=== PATIENT | female | born 1995 | race Caucasian/White ===

== ENCOUNTER 2016-08-07 14:36 | Emergency (ER) | payer OTHER ==
[~2016-08-07] VITALS: Ht 172.7 cm; Wt 112.6 kg
[~2016-08-07 14:36] MED LIST: CITA20TA9 PO; RANI300T2 PO
[2016-08-07 14:41] VITALS: TEMP 36.8; Ht 172.7 cm; Wt 112.6 kg
[2016-08-07] MEDS ORDERED: ONDANSETRON INJ 2 MG/ML 2 ML VIAL IV STA (16:37)
[2016-08-07] MEDS ORDERED: SODIUM CHLORIDE 0.9% 1000ML 1,000 ML IV STA (16:37)
[2016-08-07 16:59] LABS: BASO % 0.2 %; BASO ABS # 0.03 K/uL (0-0.2); COMPLETE YES; EOS % 0.6 %; HEMATOCRIT 36.5 % (37-47); IG% 0.4 %; LYMPH % 21.6 %; LYMPH ABS # 3.05 K/uL (1.2-3.4); MEAN CELL VOLUME 83.1 fL (80-100); MEAN CORPUSCULAR HEMOGLOBIN 27.3 pg (25-34); MEAN CORPUSCULAR HGB CONC 32.9 g/dl (32-36); MEAN PLATELET VOLUME 10.1 fL (7.4-10.4); MONO % 4.2 %; PLATELET COUNT 449 K/uL (130-400); RED BLOOD COUNT 4.39 M/uL (4.2-5.4); WHITE BLOOD COUNT 14.13 K/uL (4.8-10.8)
[2016-08-07 17:19] LABS: BUN/CREATININE RATIO 13.2 (10-20); CALCIUM 9.2 mg/dl (8.5-10.1); CREATININE 0.63 mg/dl (0.60-1.20); POTASSIUM 3.5 mmol/L (3.5-5.1)
[2016-08-07 17:56] LABS: MANUAL MICROSCOPIC REQUIRED? NO; REVIEW REQ? NO; URINE APPEARANCE CLEAR (CLEAR); URINE BILIRUBIN NEG (NEG); URINE COLOR YELLOW; URINE EPITHELIAL CELL AUTO >30 /lpf (0-5); URINE NITRITE NEG (NEG); URINE PH 6.5 (4.5-7.5); URINE SPECIFIC GRAVITY 1.001 (1.000-1.030); UROBILINOGEN NEG (NEG); ZZUR CULT IF INDIC CLEAN CATCH YES
[2016-08-07] MEDS ORDERED: ONDA4TAB46 PO (18:03)
[2016-08-07 18:25] VITALS: BP 135/83; PULSE 90; O2SAT 100
--- NOTE | 2016-08-07 18:27 | EMERGENCY ROOM VISIT NOTE ---
History Report prepared by Davidibe: Charlee Ang Under the Supervision of: Dr. Toro Emerson D.O. First contact with patient: 16:15 Chief Complaint: VOMITING Stated Complaint: ABD PAIN,VOMITING,DIARRHEA Nursing Triage Summary: pt believes she has food poisoning. yesterday started vomiting and diarrhea. denies any fever History of Present Illness The patient is a 21 year old female who presents to the Emergency Room with complaints of persistent vomiting and diarrhea that started yesterday morning. She thinks she may have food poisoning and also complains of some abdominal pain. She denies any fevers. She denies any recent sick contacts but reports her younger brother is in first grade and "is always bringing home bugs". She notes the vomiting started first, then she started experiencing diarrhea. She has not vomited since this morning. She has been trying stay hydrated by drinking water and has not eaten since trying some rice last night. Her last menstrual period was about 1 week ago and normal. She denies any abnormal vaginal bleeding or discharge. She still has both her gallbladder and appendix and denies any previous abdominal surgeries. The patient denies any headache, change in vision, fevers, chest pain, shortness of breath, back pain, pain with urination, and melena. Source of History: patient Onset: yesterday morning Position: abdomen Timing: other (persistent) Associated Symptoms: + abdominal pain, No SOB, No back pain, No chest pain, No fevers, No headache, No melena, No urinary symptoms Review of Systems See HPI for pertinent positives & negatives. A total of 10 systems reviewed and were otherwise negative. Past Medical & Surgical Medical Problems: (1) No significant past medical history Surgical Problems: (1) No history of previous surgery Social History Smoking Status: Never Smoker Alcohol Use: occasionally Marital Status: single Housing Status: lives with family Occupation Status: employed Current/Historical Medications Scheduled Ranitidine Hcl (Zantac), 300 MG PO HS Scheduled PRN Ondansetron Hcl (Zofran), 4 MG PO TID PRN for Nausea Allergies Coded Allergies: Penicillins (Unverified Allergy, Unknown, FAMILY ALLERGY, 08/07/16) Physical Exam Vital Signs Date Time Temp Pulse Resp B/P Pulse Ox O2 Delivery O2 Flow Rate FiO2 08/07/16 16:54 80 16 135/88 100 Room Air 08/07/16 14:41 36.8 82 18 110/66 100 Room Air Physical Exam GENERAL: Patient is alert, sitting up in bed, well appearing, well nourished, no distress, non-toxic EYE EXAM: normal conjunctiva OROPHARYNX: no exudate, no erythema, lips, buccal mucosa, and tongue normal and mucous membranes are moist NECK: supple, no nuchal rigidity, no adenopathy, non-tender LUNGS: Clear to auscultation. Normal chest wall mechanics HEART: no murmurs, S1 normal and S2 normal ABDOMEN: abdomen soft, non-tender, normo-active bowel sounds, no masses, no rebound or guarding. BACK: Back is symmetrical on inspection and there is no deformity, no midline tenderness, no CVA tenderness. SKIN: no rashes and no bruising UPPER EXTREMITIES: upper extremities are grossly normal. LOWER EXTREMITIES: No pitting edema. NEURO EXAM: Normal sensorium, cranial nerves II-XII grossly intact, normal speech, no gross weakness of arms, no gross weakness of legs. Gross sensation intact. Medical Decision & Procedures Laboratory Results 08/07/16 16:40 Red Blood Count 4.39, Mean Corpuscular Volume 83.1, Mean Corpuscular Hemoglobin 27.3, Mean Corpuscular Hemoglobin Concent 32.9, Mean Platelet Volume 10.1, Neutrophils (%) (Auto) 73.0, Lymphocytes (%) (Auto) 21.6, Monocytes (%) (Auto) 4.2, Eosinophils (%) (Auto) 0.6, Basophils (%) (Auto) 0.2, Neutrophils # (Auto) 10.31, Lymphocytes # (Auto) 3.05, Monocytes # (Auto) 0.60, Eosinophils # (Auto) 0.08, Basophils # (Auto) 0.03 08/07/16 16:40 Test 08/07/16 16:40 08/07/16 17:15 White Blood Count 14.13 K/uL (4.8-10.8) Red Blood Count 4.39 M/uL (4.2-5.4) Hemoglobin 12.0 g/dL (12.0-16.0) Hematocrit 36.5 % (37-47) Mean Corpuscular Volume 83.1 fL (80-100) Mean Corpuscular Hemoglobin 27.3 pg (25-34) Mean Corpuscular Hemoglobin Concent 32.9 g/dl (32-36) Platelet Count 449 K/uL (130-400) Mean Platelet Volume 10.1 fL (7.4-10.4) Neutrophils (%) (Auto) 73.0 % Lymphocytes (%) (Auto) 21.6 % Monocytes (%) (Auto) 4.2 % Eosinophils (%) (Auto) 0.6 % Basophils (%) (Auto) 0.2 % Neutrophils # (Auto) 10.31 K/uL (1.4-6.5) Lymphocytes # (Auto) 3.05 K/uL (1.2-3.4) Monocytes # (Auto) 0.60 K/uL (0.11-0.59) Eosinophils # (Auto) 0.08 K/uL (0-0.5) Basophils # (Auto) 0.03 K/uL (0-0.2) RDW Standard Deviation 42.2 fL (36.4-46.3) RDW Coefficient of Variation 13.9 % (11.5-14.5) Immature Granulocyte % (Auto) 0.4 % Immature Granulocyte # (Auto) 0.06 K/uL (0.00-0.02) Anion Gap 12.0 mmol/L (3-11) Est Creatinine Clear Calc Drug Dose 185.9 ml/min Estimated GFR () 148.6 Estimated GFR (Non- 128.2 BUN/Creatinine Ratio 13.2 (10-20) Calcium Level 9.2 mg/dl (8.5-10.1) Total Bilirubin 0.6 mg/dl (0.2-1) Direct Bilirubin 0.1 mg/dl (0-0.2) Aspartate Amino Transf (AST/SGOT) 8 U/L (15-37) Alanine Aminotransferase (ALT/SGPT) 16 U/L (12-78) Alkaline Phosphatase 83 U/L (45-117) Total Protein 7.5 gm/dl (6.4-8.2) Albumin 3.4 gm/dl (3.4-5.0) Lipase 84 U/L (73-393) Urine Color YELLOW Urine Appearance CLEAR (CLEAR) Urine pH 6.5 (4.5-7.5) Urine Specific [place] 1.001 (1.000-1.030) Urine Protein NEG (NEG) Urine Glucose (UA) NEG (NEG) Urine Ketones TRACE (NEG) Urine Occult Blood NEG (NEG) Urine Nitrite NEG (NEG) Urine Bilirubin NEG (NEG) Urine Urobilinogen NEG (NEG) Urine Leukocyte Esterase TRACE (NEG) Urine WBC (Auto) 1-5 /hpf (0-5) Urine RBC (Auto) 0-4 /hpf (0-4) Urine Hyaline Casts (Auto) 1-5 /lpf (0-5) Urine Epithelial Cells (Auto) >30 /lpf (0-5) Urine Bacteria (Auto) 1+ (NEG) Urine Test NEG (NEG) Laboratory results per my review. Medications Administered Medications (Trade) Dose Ordered Sig/Gina Route Start Time Stop Time Status Last Admin Dose Admin Sodium Chloride (Nss 1000ml) 1,000 ml @ 999 mls/hr Q1H1M STAT IV 08/07/16 16:37 08/07/16 17:37 DC 08/07/16 16:49 999 MLS/HR Ondansetron HCl (Zofran Inj) 4 mg NOW STAT IV 08/07/16 16:37 08/07/16 16:38 DC 08/07/16 16:50 4 MG ED Course ED COURSE: Vital signs were reviewed and showed normal vital signs. The patients medical record was reviewed The above diagnostic studies were performed and reviewed. ED treatments and interventions as stated above. 1622: The patient was evaluated in room B6. A complete history and physical examination was performed. 1637: Zofran 4 mg IV, NSS 1000 ml @ 999 mls/hr IV. 1720: I reevaluated the patient. She is resting comfortably and was just able to provide a urine sample. 1755: Upon reevaluation, the patient is feeling much better. I discussed my findings with the patient and she understands and agrees with the treatment plan. Based on the patients age, coexisting illnesses, exam and lab findings the decision to treat as an outpatient was made. The patient remained stable while under my care. The patient appeared well at the time of discharge. Medical Decision Differential diagnoses includes but is not limited to gastritis, peptic ulcer disease, GERD, gallbladder disease, pancreatitis, small bowel obstruction, acute coronary syndrome, pericarditis, ischemic bowel, irritable bowel disease, irritable bowel syndrome, appendicitis, diverticulitis, malignancy, hernia, urinary tract infection, torsion, /ectopic , perforation, trauma, infectious. Patient is a 21-year-old female who present see ER for abdominal cramping associated with nausea, vomiting and diarrhea. This started yesterday and has been improving. Today diarrhea has stopped and she's been able to tolerate liquids. She is no abdominal pain. She does have some nausea. Labs show a mild leukocytosis but BMP along with LFTs, lipase and bilirubin are unremarkable. UA was contaminated. was negative. Her abdominal exam was completely benign without signs of peritonitis. She was discharged follow-up with her PCP following receiving a liter of normal saline along with Zofran. Discussed with Pt concerning signs and symptoms to watch out for. Pt was instructed to follow up with their PCP and discussed with the patient their option to return to the ED at anytime for persistent or worsening symptoms. The appropriate anticipatory guidance and out-patient management, including indications for return to the emergency department, were explained at length to the patient and understood. Impression Primary Impression: Nausea, vomiting, and diarrhea Additional Impression: Leukocytosis Scribe Attestation The scribe's documentation has been prepared under my direction and personally reviewed by me in its entirety. I confirm that the note above accurately reflects all work, treatment, procedures, and medical decision making performed by me. Departure Information Dispostion Home / Self-Care Prescriptions Ondansetron Hcl (ZOFRAN) 4 Mg Tab 4 MG PO TID Y for Nausea, #30 TAB Prov: Toro Emerson, DO 08/07/16 Referrals No Doctor, Assigned (PCP) Patient Instructions A Signature Page, ED Diet Vomiting Diarrhea, ED Vomiting Diarrhea Nonspecific Ad , My [facility] Additional Instructions Please follow up with your primary care doctor with in the next 24 hours. Any worsening of your symptoms, please return to the ED immediately. This includes persistent nausea vomiting, fevers rhythm 100.4, unable to eat or drink, passing out, blood in her stool, or any other concerning signs or symptoms from your standpoint. Please take Zofran as needed for nausea.
== END 2016-08-07 18:25 | disposition home or self-care (01) ==
LOC: C.EDB 14:37
DX: R11.2 Nausea with vomiting, unspecified (principal); R19.7 Diarrhea, unspecified; D72.829 Elevated white blood cell count, unspecified; R10.9 Unspecified abdominal pain; Z79.899 Other long term (current) drug therapy; Z88.0 Allergy status to penicillin

== ENCOUNTER 2017-01-19 21:39 | Emergency (ER) | payer OTHER ==
[~2017-01-19] VITALS: Ht 175.3 cm; Wt 118.7 kg
[~2017-01-19 21:39] MED LIST changes: -CITA20TA9 PO; +ONDA4TAB46 PO
[2017-01-19 21:42] VITALS: TEMP 37.4; Ht 175.3 cm; Wt 118.7 kg
--- NOTE | 2017-01-19 22:05 | EMERGENCY ROOM VISIT NOTE ---
ED Visit Note First contact with patient: 21:46 CHIEF COMPLAINT: Sore throat / HISTORY OF PRESENT ILLNESS: This 21-year-old female patient presents the ER with chief complaint of increasing pain in the throat over the past day, gradual in onset, worse with swallowing. The patient states that she sees white spots on her tonsils. No fever or chills. The patient denies any upper respiratory symptoms of runny nose, cough, ear pain. No rash. Denies any posterior neck pain or stiffness. No difficulty breathing. Symptoms came on gradually. There has been no chest pain, no abdominal pain, no nausea or vomiting. 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 REVIEW OF SYSTEMS: 6 system review was performed and was negative unless stated otherwise in history of present illness. PMH: The patient is healthy; there is no significant medical or surgical history. SOCIAL HISTORY: Patient lives at home. PHYSICAL EXAM: Vital Signs were reviewed: Reviewed Nurse's notes and agree.. GENERAL: 21-year-old female appears in no acute distress. MENTAL STATUS: Alert, oriented, coherent. EARS: Canals clear. TMs good light reflex, no erythema or fluid level noted. NOSE: Nasal mucosa without erythema or engorgement. PHARYNX: Moderate erythema, no edema noted. A few white spots noted on the tonsils which may be exudate or possibly food products in her tonsils. Airway is adequate. NECK: Supple, non-tender. No lymphadenopathy noted. LUNGS: Clear to auscultation without wheezes rales or rhonchi. CARDIAC: Regular rate and rhythm without murmur. SKIN: No rashes noted. EMERGENCY COURSE: The patient was evaluated. Rapid strep was negative. Culture is pending. The patient was informed of findings and discharged home in stable condition. DIAGNOSIS: Acute pharyngitis, probably viral DISCHARGE INSTRUCTIONS & TREATMENT: Read the pharyngitis (sore throat) instruction sheet. Call for throat test result tomorrow. Ibuprofen for pain and fever every 6 hours. Current/Historical Medications Scheduled Ranitidine Hcl (Zantac), 300 MG PO HS Scheduled PRN Ondansetron Hcl (Zofran), 4 MG PO TID PRN for Nausea Allergies Coded Allergies: Penicillins (Unverified Allergy, Unknown, FAMILY ALLERGY, 08/07/16) Vital Signs Date Time Temp Pulse Resp B/P (MAP) Pulse Ox O2 Delivery O2 Flow Rate FiO2 6/16/17 21:46 Room Air 01/19/17 21:42 37.4 93 18 144/90 98 Room Air Departure Information Referrals No Doctor, Assigned (PCP) Patient Instructions [facility]
[2017-01-19] MEDS ORDERED: PRLSR20 PO (22:16)
[2017-01-19 22:27] VITALS: BP 137/84; PULSE 81; O2SAT 99
== END 2017-01-19 22:28 | disposition home or self-care (01) ==
LOC: C.EDB 21:40 → C.EDD 22:28
DX: J02.9 Acute pharyngitis, unspecified (principal)

== ENCOUNTER 2017-08-04 04:40 | Emergency (ER) | payer OTHER ==
[~2017-08-04 04:40] MED LIST changes: -ONDA4TAB46 PO; +PRLSR20 PO; -RANI300T2 PO
[2017-08-04 04:46] VITALS: TEMP 36.8; Ht 172.7 cm
[2017-08-04] MEDS ORDERED: IBUPROFEN 600 MG TAB PO STA (04:55)
--- NOTE | 2017-08-04 05:18 | EMERGENCY ROOM VISIT NOTE ---
ED Visit Note First contact with patient: 04:52 CHIEF COMPLAINT: Ankle pain HISTORY OF PRESENT ILLNESS: This 22-year-old patient presents to the emergency department with fianc after sustaining an injury to the right ankle and foot with a twisting, inversion motion when she slipped on the snow tonight. The patient complains of pain along the outside of the ankle. The patient complains of pain of the foot. The patient rates the pain as throbbing and 6/ 10. The patient is barely able to bear weight on the foot. Constant pain, worse with movement, weight bearing, and the dependent position. No knee pain, the patient is able to move their toes. No numbness or weakness of the foot, no laceration. The patient has not had a previous fracture to this ankle. The patient has taken nothing for the pain. The patient denies any other injury. REVIEW OF SYSTEMS: A 6 system review of systems was completed with positives and pertinent negatives listed in the HPI. ALLERGIES: Penicillin MEDICATIONS: Reviewed PMH: GERD SOCIAL HISTORY: No drug use PHYSICAL EXAM: Vital Signs: Reviewed Nurse's notes, vital signs stable. GENERAL : Pleasant female, no acute distress, but appears in pain, well-developed, well- nourished. MENTAL STATUS: Alert, oriented to person place and time, and cooperative. MUSCULOSKELETAL: The right ankle is swollen and tender over the lateral malleolus, but the skin is intact and there is no ligamentous instability. There is fifth metatarsal tenderness. There is tenderness over the rest of the foot. There is no calf or tibia/fibular tenderness. There is no visual deformity. The foot and toes are warm and well-perfused. Dorsalis pedis pulse 2+. Sensation to pain and light touch is intact. Capillary refill less than 2 seconds. EMERGENCY DEPARTMENT COURSE: I examined the patient. Patient is given Motrin. X-rays of the right foot and ankle were reviewed by myself and my Attending and reveal no fracture with moderate lateral soft tissue swelling per my interpretation. AirGel splint was applied to the ankle under my direction and the position was satisfactory. Neurovascular status was rechecked and intact. Patient was advised to follow-up with orthopedics in a few days if symptoms persist or here in the ER sooner for severe pain, numbness, tingling, worsening signs or symptoms or as needed. The patient was instructed on the use of crutches. The patient was discharged home in good condition. Differential diagnoses include sprain, strain, fracture, dislocation and other etiologies were considered. DIAGNOSIS: Right ankle sprain DISCHARGE INSTRUCTIONS: DO NOT drive, drink alcohol, operate machinery, or perform dangerous activities today. You were given medications in the ER that can affect your ability to safely function or operate a vehicle. Ibuprofen(Motrin, Advil) may be used for fever or pain. Use 600mg every six hours as needed. Take with food. Avoid using more than 2400mg in a 24 hour period. Do not use 2400mg per day for more than three consecutive days without physician direction. Prolonged inappropriate use can lead to stomach upset or ulcers. This medication can be taken if you need to drive, work, or perform activities which may be dangerous when taking narcotic pain medication. (AND/OR) Acetaminophen(Tylenol) may be used for fever or pain. Use 1000mg every six hours as needed. Avoid using more than 3000mg in a 24 hour period. This medication can be taken if you need to drive, work, or perform activities which may be dangerous when taking narcotic pain medication. Ice compresses for 20 minutes at a time four times daily for 2-3 days. Use the crutches as instructed. Rest and elevate your injury. Wear ankle gel splint until pain subsides. Do not have it so tight that you cannot feel your foot. Continue current medications. Return to the ER immediately for any numbness, tingling, severe pain, extreme swelling in the extremity or as needed. Call Orthopedics in 3-5 days symptoms persist to arrange follow up for your injury. Current/Historical Medications Scheduled Omeprazole (Prilosec), 20 MG PO DAILY Allergies Coded Allergies: Penicillins (Unverified Allergy, Unknown, FAMILY ALLERGY, 01/19/17) Vital Signs Date Time Temp Pulse Resp B/P (MAP) Pulse Ox O2 Delivery O2 Flow Rate FiO2 08/04/17 04:46 36.8 107 18 133/58 98 Room Air Medications Administered Medications (Trade) Dose Ordered Sig/Gina Route Start Time Stop Time Status Last Admin Dose Admin Ibuprofen (Motrin Tab) 600 mg NOW STAT PO 08/04/17 04:55 08/04/17 04:56 DC 08/04/17 05:02 600 MG Departure Information Referrals Mae Zepeda D.O. (PCP) Patient Instructions [facility]
[2017-08-04 05:30] VITALS: BP 136/81; PULSE 100; O2SAT 99
--- NOTE | 2017-08-04 06:54 | DIAGNOSTIC IMAGING REPORT ---
R FOOT MIN 3 VIEWS ROUTINE, R ANKLE MIN 3 VIEWS ROUTINE CLINICAL HISTORY: 22 years-old Female presenting with fall, pain. TECHNIQUE: Frontal, mortise, and lateral views of the right ankle and frontal, oblique, and lateral views of the right foot were obtained. COMPARISON: None. FINDINGS: Right ankle: Ankle mortise intact. Tibiofibular articulation intact. No acute fracture or malalignment. No degenerative change. Soft tissue swelling noted diffusely along the ankle. Right foot: No acute fracture or malalignment. Soft tissue swelling noted anteriorly at the level of the ankle mortise and most prominently along the lateral malleolus. IMPRESSION: 1. No acute osseous injury of the right ankle. Significant soft tissue swelling. 2. No acute osseous injury of the right foot. Electronically signed by: Irvin Jiménez M.D. 08/04/2017 6:53 AM Dictated Date/Time: 08/04/2017 6:51 AM
== END 2017-08-04 05:30 | disposition home or self-care (01) ==
LOC: C.EDB 04:41 → C.EDA 05:30
DX: S93.401A Sprain of unspecified ligament of right ankle, initial encounter (principal); W00.0XXA Fall on same level due to ice and snow, initial encounter

== ENCOUNTER 2018-03-24 02:58 | Inpatient (IN) | payer OTHER ==
[~2018-03-24] VITALS: Ht 172.7 cm; Wt 121.0 kg
[2018-03-24] VITALS (23 sets, daily range): BP systolic 100–133; BP diastolic 46–84; PULSE 78–114; TEMP 35.5–37; O2SAT 96–100; Ht 172.7 cm; Wt 121.0 kg
[2018-03-24] MEDS ORDERED: SODIUM CHLORIDE 0.9% 1000ML 1,000 ML IV STA ×3 (03:06→04:07)
--- NOTE | 2018-03-24 03:18 | EMERGENCY ROOM VISIT NOTE ---
History Report prepared by Tony: Sean Ramos Under the Supervision of: Dr. Joselyn Paul D.O. First contact with patient: 03:01 Stated Complaint: OVERDOSE History of Present Illness HPI is limited due to an altered mental state secondary to a poly-substance overdose. The patient is a 22 year old female who presents to the Emergency Room via EMS due to a recent intentional poly-substance overdose. Patient is present with her . states that him and the patient were drinking at a friend's house tonight. He states when they got home he saw the patient looking up "the easiest drugs to overdose on". He states he was then lying in bed when he received a text message from the patient saying "I love you, you are the best I could ask for". He states he then found the patient lying in the bathtub with her Clonazepam medication on the floor. He adds he was able to get the patient out of the bath tub where she then ambulated by herself to the bed room. He states the patient was having trouble standing and walking so he called EMS. states the patient took Clonazepam with intentions of trying to "kill herself". He states he would be willing to sign a 302. He adds the patient also has [place] and Seroquel but does not know for sure if she took these as well. adds the patient stopped taking all her medications a month ago. Past medical history includes Bipolar 2 Disorder and depression which she sees a psychiatrist for. denies the patient always feeling depressed when she drinks. He states she has felt lonely lately which has been worsened with her friends being "flaky". states they do not have children. He states the patient has never been committed to the hospital against her will. states the patient smokes weed occasionally but denies any other drug abuse. He states the patient's last menstrual period was a week ago. He states the patient drank "6 shots of vodka" tonight. Source of History: spouse/significant other History Limited By: AMS (Poly-substance overdose) Onset: Recent Review of Systems ROS is limited due to an altered mental state secondary to a poly-substance overdose. Past Medical & Surgical Medical Problems: (1) Bipolar 2 disorder (2) Respiratory failure, acute Surgical Problems: (1) No history of previous surgery Family History Family history is limited due to an altered mental state secondary to a poly- substance overdose. Social History Smoking Status: Current Some Day Smoker Alcohol Use: occasionally Marital Status: single Housing Status: lives with family Occupation Status: employed Current/Historical Medications Scheduled Clonazepam (Klonopin), 1.5 MG PO AMPM Dexamethasone Sod Phos (Dexamethasone Sodium Phos), 4 MG TOP UD Ergocalciferol (Vitamin D 77206 Unit), 50,000 UNIT PO WK Kistler Carbonate ([place] Carbonate), 300 MG PO QAM [place] Carbonate ([place] Carbonate), 600 MG PO HS Omeprazole (Prilosec), 20 MG PO DAILY Quetiapine Fumarate (Seroquel), 50 MG PO HS Sertraline (Zoloft), 150 MG PO QAM Allergies Coded Allergies: Penicillins (Unverified Allergy, Unknown, FAMILY ALLERGY, 08/04/17) Physical Exam Vital Signs Date Time Temp Pulse Resp B/P (MAP) Pulse Ox O2 Delivery O2 Flow Rate FiO2 03/24/18 05:21 93 16 118/56 100 Mechanical Ventilator 50 03/24/18 05:16 93 13 121/66 100 Mechanical Ventilator 03/24/18 05:11 92 12 106/51 100 Mechanical Ventilator 03/24/18 05:06 93 12 129/47 100 Mechanical Ventilator 03/24/18 05:05 136/61 03/24/18 05:01 113 17 147/67 99 Mechanical Ventilator 03/24/18 04:56 114 25 165/83 100 Mechanical Ventilator 03/24/18 04:55 100 03/24/18 04:52 124 21 171/101 100 Mechanical Ventilator 03/24/18 04:47 100 03/24/18 04:46 111 16 115/62 99 Nasal Cannula 3.0 03/24/18 04:41 103 16 109/54 99 Nasal Cannula 3.0 03/24/18 04:36 101 17 104/55 98 Nasal Cannula 3.0 03/24/18 04:31 98 17 111/55 98 Nasal Cannula 3.0 03/24/18 04:21 99 16 94/59 97 Nasal Cannula 3.0 03/24/18 04:11 98 16 80/57 96 Nasal Cannula 3.0 03/24/18 04:01 98 24 94/50 97 Nasal Cannula 3.0 03/24/18 03:56 Nasal Cannula 3.0 03/24/18 03:51 102 17 87/45 96 Nasal Cannula 3.0 03/24/18 03:41 90/43 03/24/18 03:40 105 23 91/48 93 Nasal Cannula 3.0 03/24/18 03:31 97 21 76/45 97 Nasal Cannula 3.0 03/24/18 03:21 108 23 88/49 94 Room Air 03/24/18 03:21 89 22 82/48 99 03/24/18 03:15 96 03/24/18 03:11 83/35 90 Nasal Cannula 3.0 03/24/18 03:10 69/40 88 Room Air Physical Exam General: Patient is unresponsive to verbal and painful stimuli. HEENT: Head - normocephalic and atraumatic Pupils are 4 mm and equal, round, and reactive to light. Extraocular eye muscles are intact, and sclera are anicteric. Nose - moist nasal mucosa without discharge. Mouth - moist buccal mucosa. Oropharynx is nonerythematous and there is no tonsillar exudate or edema noted. Neck: Supple; no JVD, nuchal rigidity, cervical lymphadenopathy. Heart: Regular rate and rhythm. There is a normal S1 and S2 with no murmurs, clicks, or gallops appreciated. Lungs: Clear to auscultation bilaterally with no wheezes, rales, or rhonchi. Abdomen: Soft, completely nontender, nondistended, with good bowel sounds. There are no palpable pulsatile masses or hepatosplenomegaly. There is no guarding, rigidity, or rebound noted. Extremities: No evidence of cyanosis, clubbing, or edema. There are easily palpable peripheral pulses. Skin: Open skin lesions on the anterior tib fibs otherwise warm and dry with good turgor and no rashes. Medical Decision & Procedures ER Provider Diagnostic Interpretation: Radiology results as stated below per my review and the interpretation: CHEST X-RAY: X-ray shows endotracheal tube was 2cm above the gayla and no other pulmonary findings. Laboratory Results 03/24/18 02:38 Red Blood Count 4.62, Mean Corpuscular Volume 83.1, Mean Corpuscular Hemoglobin 26.2, Mean Corpuscular Hemoglobin Concent 31.5, Mean Platelet Volume 10.4, Neutrophils (%) (Auto) 72.2, Lymphocytes (%) (Auto) 23.0, Monocytes (%) (Auto) 3.3, Eosinophils (%) (Auto) 0.6, Basophils (%) (Auto) 0.3, Neutrophils # (Auto) 9.92, Lymphocytes # (Auto) 3.15, Monocytes # (Auto) 0.45, Eosinophils # (Auto) 0.08, Basophils # (Auto) 0.04 03/24/18 02:38 Test 03/24/18 02:38 03/24/18 03:15 03/24/18 03:17 White Blood Count 13.72 K/uL (4.8-10.8) Red Blood Count 4.62 M/uL (4.2-5.4) Hemoglobin 12.1 g/dL (12.0-16.0) Hematocrit 38.4 % (37-47) Mean Corpuscular Volume 83.1 fL (80-100) Mean Corpuscular Hemoglobin 26.2 pg (25-34) Mean Corpuscular Hemoglobin Concent 31.5 g/dl (32-36) Platelet Count 487 K/uL (130-400) Mean Platelet Volume 10.4 fL (7.4-10.4) Neutrophils (%) (Auto) 72.2 % Lymphocytes (%) (Auto) 23.0 % Monocytes (%) (Auto) 3.3 % Eosinophils (%) (Auto) 0.6 % Basophils (%) (Auto) 0.3 % Neutrophils # (Auto) 9.92 K/uL (1.4-6.5) Lymphocytes # (Auto) 3.15 K/uL (1.2-3.4) Monocytes # (Auto) 0.45 K/uL (0.11-0.59) Eosinophils # (Auto) 0.08 K/uL (0-0.5) Basophils # (Auto) 0.04 K/uL (0-0.2) RDW Standard Deviation 42.8 fL (36.4-46.3) RDW Coefficient of Variation 14.3 % (11.5-14.5) Immature Granulocyte % (Auto) 0.6 % Immature Granulocyte # (Auto) 0.08 K/uL (0.00-0.02) Activated Partial Thromboplast Time 28.0 SECONDS (21.0-31.0) Partial Thromboplastin Ratio 1.1 Anion Gap 10.0 mmol/L (3-11) Est Creatinine Clear Calc Drug Dose 174.1 ml/min Estimated GFR () 143.2 Estimated GFR (Non- 123.6 BUN/Creatinine Ratio 10.9 (10-20) Osmolality 341 mOsm/kg (280-300) Calcium Level 9.0 mg/dl (8.5-10.1) Magnesium Level 2.1 mg/dl (1.8-2.4) Total Bilirubin 0.2 mg/dl (0.2-1) Direct Bilirubin < 0.1 mg/dl (0-0.2) Aspartate Amino Transf (AST/SGOT) 8 U/L (15-37) Alanine Aminotransferase (ALT/SGPT) 19 U/L (12-78) Alkaline Phosphatase 82 U/L (45-117) Troponin I < 0.015 ng/ml (0-0.045) Pro-B-Type Natriuretic Peptide 49 pg/ml (0-450) Total Protein 7.7 gm/dl (6.4-8.2) Albumin 3.7 gm/dl (3.4-5.0) Procalcitonin < 0.05 ng/ml (0-0.5) Thyroid Stimulating Hormone (TSH) 1.840 uIu/ml (0.300-4.500) Human Chorionic Gonadotropin, Qual NEG (NEG) Salicylates Level < 1.7 mg/dl (2.8-20) Acetaminophen Level < 2 ug/ml (10-30) [place] Level 0.6 mMOL/L (0.6-1.2) Urine Color YELLOW Urine Appearance CLEAR (CLEAR) Urine pH 6.0 (4.5-7.5) Urine Specific Rainbow 1.005 (1.000-1.030) Urine Protein NEG (NEG) Urine Glucose (UA) NEG (NEG) Urine Ketones NEG (NEG) Urine Occult Blood NEG (NEG) Urine Nitrite NEG (NEG) Urine Bilirubin NEG (NEG) Urine Urobilinogen NEG (NEG) Urine Leukocyte Esterase NEG (NEG) Urine Opiates Screen NEG (NEG) Urine Methadone, Qualitative NEG (NEG) Urine Barbiturates NEG (NEG) Urine Phencyclidine (PCP) Level NEG (NEG) Ur Amphetamine/Methamphetamine NEG (NEG) MDMA (Ecstasy) Screen NEG (NEG) Urine Benzodiazepines Screen NEG (NEG) Urine Cocaine Metabolite NEG (NEG) Urine Marijuana (THC) NEG (NEG) Ethyl Alcohol mg/dL 166.0 mg/dl (0-3) Medications Administered Medications (Trade) Dose Ordered Sig/Gina Route Start Time Stop Time Status Last Admin Dose Admin Sodium Chloride 1,000 ml @ 999 mls/hr Q1H1M STAT IV 03/24/18 03:06 03/24/18 04:06 DC 03/24/18 03:10 999 MLS/HR Sodium Chloride 1,000 ml @ 999 mls/hr Q1H1M STAT IV 03/24/18 04:07 03/24/18 05:07 DC 03/24/18 03:10 999 MLS/HR Sodium Chloride 1,000 ml @ 250 mls/hr Q4H STAT IV 03/24/18 04:07 03/24/18 06:02 DC 03/24/18 04:10 250 MLS/HR Norepinephrine Bitartrate 8 mg/ Dextrose 508 ml @ 0 mls/hr Q0M STAT IV 03/24/18 04:13 03/24/18 04:14 DC 03/24/18 04:29 44.9 MLS/HR Procedure Sodium Chloride 1000 ml @ 999 mls/hr IV, Sodium Chloride 1000 ml @ 250 mls/hr IV , Sodium Chloride 1000 ml @ 999 mls/hr IV, Levophed drip RSI: Succinylcholine IV Versed 2 IV fentanyl 2 Soft restraints Endotracheal Intubation: Indication: Hemodynamic instability. The patient was on 100% oxygen via NRB prior to the procedure. Suction, airway equipment, RSI drugs, respiratory equipment, and appropriate personnel were prepared prior to the initiation of the procedure. A time out was taken. ET CO2 prior to intubation was between 35 and 45. There was a good waveform. I was able to insert the laryngoscope into the patient's mouth but she began to bite down. Induction was performed with 200mg succinylcholine. After observing the clinical benefit of the medications, the airway was easily visualized utilizing a galidiscope. A 7.5 size ETT tube was placed atraumatically to 24 cm at the lip using standard technique. The cuff inflated without signs of malfunction. There were bilateral breath sounds, positive colormetric change, no gastric sounds, a good capnography waveform, and post procedure pulse oximetry was 100% and ET CO2 39. Post intubation sedation was administered using 10 of Versed and 100 of Fentanyl. There were no complications. ED Course 0256: Past medical records reviewed. The patient was evaluated in room B1. A complete history and physical exam was performed. The patient was observed on the environmental monitoring technician and pulse oximeter. The history was obtained from the and EMS. The will petition a 302 as this was a suicide attempt. A second large-bore IV lock was initiated once the patient was noted to be hypotensive. 0306: Sodium Chloride 1000 ml @ 999 mls/hr IV. A 12-lead EKG was obtained. Labs were drawn as above. 0315: Casiano Catheter was inserted with no response from the patient. 0323: I reevaluated the patient. states the patient did not tow picker her medications yesterday from pharmacist. Patient is more hypotensive at 76/45. She has received 1600ml of saline bolus. She will receive an additional liter of crystalloid. 0343: I reassessed the patient. Patient's blood pressure is now 90/63. 0407: Sodium Chloride 1000 ml @ 250 mls/hr IV and Sodium Chloride 1000 ml @ 999 mls/hr IV. 0413: Patient's systolic blood pressure dropped again into the 80s. I will start her on a Levophed drip. [facility] was contacted. 0440: I talked with the patient's parents and and updated them on the patient's findings. I discussed the case with the ventilation worker and he recommended endotracheal intubation 0500: Patient was intubated. 0503: The patient became agitated and was pulling at her endotracheal tube. The patient was placed in soft restraints. A post intubation x-ray was obtained. 0508: I discussed the treatment plan with the patient's family. 0530: Upon reevaluation, I discussed findings and results with her and her family. They verbalized agreement of the treatment plan. [facility] The patient will be evaluated for further management and care. Medical Decision The patient is a 22 year old female who presents to the ED due to a recent intentional poly-substance overdose. Differential diagnosis includes suicide attempt and poly substance overdose. Lab results show WBC = 13.7, stable H&H, negative, glucose = 111, normal renal function and LFTs, Tylenol and aspirin levels negative, lithium level of 0.6, alcohol = 166, urine tox screen negative, and UA normal. Patient has a history of bipolar disorder and had been off of her medications for the past month. She started taking them again yesterday. She had a suicidal gesture 2 days ago when the has been found in the bathtub with a knife. [facility] was contacted at that time. Tonight, the patient was drinking alcohol and took a polysubstance overdose to include at least alcohol and clonazepam. Upon presentation to the emergency department, the patient's GCS was 7. At that time, she was protecting her own airway. She was monitored very closely. She became significantly hypotensive and received 2-1/2 L of crystalloids. Her blood pressure briefly stabilized but then dropped again. She was placed on a Levophed drip. This brought her pressure up again. RSI was performed and endotracheal intubation was performed. During the intubation , the patient's blood pressure came up and the Levophed drip was stopped. Post intubation sedation was accomplished with IV Versed and fentanyl. The patient remained hemodynamically stable at that point. She was evaluated by Dr. Girish Isaacs. She will be admitted to the ICU. Head Trauma GCS Score: 7 Medication Reconcilliation Current Medication List: was personally reviewed by me Blood Pressure Screening Patient's blood pressure: Normal blood pressure Blood pressure disposition: Did not require urgent referral Consults Time Called: [phone] Consulting Physician: Dr. Jeancarlos WEINSTEIN Returned Call: [phone] Discussed the patient's case. The patient will be evaluated for further management. Additional Consults: Time Called: [phone] Consulted Physician: Dr. Deandre Rubi Hospitalist Returned Call: [phone] Additional Comments: Discussed the patient's case. The patient will be evaluated for further management. Impression Primary Impression: Suicide attempt Additional Impression: Multiple drug overdose Critical Care I have personally spent greater than 90 minutes of critical care time in the direct management of this patient. This includes bedside care, interpretation of diagnostic studies, and testing, discussion with consultants, patient, and family members, and other required patient management activities. This 90 minutes is in excess of all separately billable procedures. Scribe Attestation The scribe's documentation has been prepared under my direction and personally reviewed by me in its entirety. I confirm that the note above accurately reflects all work, treatment, procedures, and medical decision making performed by me. Departure Information Dispostion Being Evaluated By Hospitalist Referrals Mae Zepeda D.O. (PCP) Forms HOME CARE DOCUMENTATION FORM, IMPORTANT VISIT INFORMATION, WORK / SCHOOL INSTRUCTIONS Patient Instructions My [facility] Health Problem Qualifiers Additional Impression: Multiple drug overdose Encounter type: initial encounter Injury intent: intentional self-harm Qualified Codes: T50.902A - Poisoning by unspecified drugs, medicaments and biological substances, intentional self-harm, initial encounter
[2018-03-24 03:24] LABS: BASO % 0.3 %; BASO ABS # 0.04 K/uL (0-0.2); EOS % 0.6 %; EOS ABS # 0.08 K/uL (0-0.5); HEMATOCRIT 38.4 % (37-47); HEMOGLOBIN 12.1 g/dL (12.0-16.0); IG# 0.08 K/uL (0.00-0.02); LYMPH ABS # 3.15 K/uL (1.2-3.4); MEAN CELL VOLUME 83.1 fL (80-100); MEAN CORPUSCULAR HEMOGLOBIN 26.2 pg (25-34); MEAN CORPUSCULAR HGB CONC 31.5 g/dl (32-36); MEAN PLATELET VOLUME 10.4 fL (7.4-10.4); MONO % 3.3 %; MONO ABS # 0.45 K/uL (0.11-0.59); NEUT % 72.2 %; NEUT ABS # 9.92 K/uL (1.4-6.5); PLATELET COUNT 487 K/uL (130-400); RED CELL DISTRIBUTION WIDTH CV 14.3 % (11.5-14.5); RED CELL DISTRIBUTION WIDTH SD 42.8 fL (36.4-46.3); WHITE BLOOD COUNT 13.72 K/uL (4.8-10.8)
[2018-03-24] MEDS ORDERED: SERT-234 PO (03:35)
[2018-03-24] MEDS ORDERED: DEXA4INJ32 TOP (03:39)
[2018-03-24] MEDS ORDERED: QUET1TAB30 PO (03:42)
[2018-03-24] MEDS ORDERED: LTHSR/300 PO (03:44)
[2018-03-24 03:47] LABS: ALBUMIN 3.7 gm/dl (3.4-5.0); ALKALINE PHOSPHATASE 82 U/L (45-117); ALT/SGPT 19 U/L (12-78); AST/SGOT 8 U/L (15-37); BLOOD UREA NITROGEN 8 mg/dl (7-18); CARBON DIOXIDE 23 mmol/L (21-32); CREATININE 0.69 mg/dl (0.60-1.20); GLUCOSE 111 mg/dl (70-99); POTASSIUM 3.8 mmol/L (3.5-5.1); SODIUM 140 mmol/L (136-145); TOTAL PROTEIN 7.7 gm/dl (6.4-8.2)
[2018-03-24] MEDS ORDERED: KLN/5 PO (03:47)
[2018-03-24] MEDS ORDERED: ERGO500037 PO (03:48)
[2018-03-24] MEDS ORDERED: LITH300T2 PO (04:01)
[2018-03-24] MEDS ORDERED: NOREPINEPHRINE BIT INJ 8 MG in DEXTROSE 5% 500ML 500 ML IV STA (04:13)
[2018-03-24] MEDS ORDERED: RAPID SEQUENCE INDUCTION BAG ONE (04:38)
[2018-03-24] MEDS ORDERED: FENTANYL CITRATE INJ 50 MCG/1 ML 2 ML VIAL ONE (05:55)
[2018-03-24] MEDS ORDERED: ICU PROTOCOL FOR HYPERGLYCEMIA PRN (06:00)
[2018-03-24] MEDS: IPRATROPIUM BROMIDE HFA INHALER INH SCH ×2 (06:00→12:00)
[2018-03-24] MEDS ORDERED: NITROGLYCERIN 0.4 MG SL PER TAB CHARGE SL PRN (06:00)
[2018-03-24] MEDS: LEValbuterol HFA 15GM INHALER INH SCH ×2 (06:00→12:00)
[2018-03-24] MEDS ORDERED: PROCHLORPERAZINE INJ 5 MG in SYRINGE 4 ML IV PRN (06:00)
[2018-03-24] MEDS ORDERED: FENTANYL CITRATE INJ 50 MCG/1 ML 2 ML VIAL IV PRN (06:00)
[2018-03-24] MEDS ORDERED: THIAMINE HCL INJ 200 MG in SODIUM CHLORIDE 0.9% 50ML 50 ML IV STA (06:17)
[2018-03-24] MEDS: LACTATED RINGER'S 1000ML 1,000 ML IV SCH ×2 (07:03→17:26)
--- NOTE | 2018-03-24 07:14 | HISTORY & PHYSICAL EXAMINATION ---
DATE OF ADMISSION: 03/24/2018 PRIMARY CARE PHYSICIAN: Dr. Zepeda. CHIEF COMPLAINT: Overdose as per records. HISTORY OF PRESENT ILLNESS: History obtained from patient's family and records. Unable to obtain history from patient secondary to sedated state. Medical history significant for mood disorder, reflux, IBS, ongoing tobacco abuse. Patient and her had some guests at home today. After friends left, spouse noted the patient being depressed. Patient's later got a text message from the patient stating "I love you very much. You're the best I could ever ask for." found the patient on the bathtub with several pill bottles (Sertraline, [place], Seroquel, and Clonazepam w/ only the Clonazepam bottle open with tablets on the floor.) Patient noted to be groggy, staggering around as per . Upon EMS arrival, the patient noted to unresponsive. At the Emergency Room, O2 sats noted to be in the 80s. Systolic blood pressure initially low. IV fluids started followed by Levophed. Levophed stopped after SBP shot up to the 170s post intubation. MEDICAL HISTORY: As above. History of traumatic right ankle injury July 2018 ongoing conservative management. SURGICAL HISTORY: No operations as per HOME MEDICATIONS: Include as per EPIC list. The patient's list includes Klonopin, vitamin D, lithium carbonate, Prilosec, Seroquel, Zoloft, Sertraline ALLERGIES: TO PENICILLIN. FAMILY HISTORY: There is a family history of mood disorder, leukemia, prostate cancer. PERSONAL AND SOCIAL HISTORY: Occasional cigarette and alcohol intake as per . Currently unemployed. REVIEW OF SYSTEMS: Cannot be fully obtained. PHYSICAL EXAMINATION: VITAL SIGNS: Initially blood pressure noted to be 69/40, later 109/54. Pulse rate 103, later 93. RR 16, temperature 35.3. O2 Sats initially 88 on room air, later 100 on 50%. GENERAL: Obese, sedated. SKIN: Normal color, warm. HEENT: [place] palpebral conjunctivae. No ptosis. ETube in place. NECK: Short, supple. CHEST: Decreased effort. No tenderness. HEART: RRR. No murmur. ABDOMEN: Some distention, non tender. EXTREMITIES: min LE edema, no tenderness. No other gross deformities NEUROLOGIC: Sedated. Pupils ERTL, no facial asymmetry. LABORATORY DATA: Hemoglobin was noted to be 14 WBC 13, platelets noted to be 407. Sodium noted to be 140 BUN 8, creatinine 0.69, glucose was noted to be 111. Alcohol level was 166. Serum lithium level was 0.6 Urine tox was negative. Chest x-ray as per my interpretation atelectasis, hilar fullness EKG as per my interpretation, rate 110, sinus tachycardia, no ischemia. ASSESSMENT: 1. Acute hypoxemic respiratory failure secondary to unresponsiveness secondary to suicidal drug overdose (presumably benzodiazepine as per 's history) 2.. Ongoing tobacco abuse. PLAN: ICU Baseline ABG Vent management until the patient more awake. Supportive management for drug overdose; follow Toxicology recommendations. Appropriate to hold home neuropsychotropics for now. Psych consult RE suicidality. DVT prophylaxis Lovenox subQ. Full code. Patient's requesting for updates from providers. Mr. Shakeel Valencia thru contact number [phone]. Total critical care time was 45 minutes. MTDD
--- NOTE | 2018-03-24 07:37 | DIAGNOSTIC IMAGING REPORT ---
CHEST ONE VIEW PORTABLE CLINICAL HISTORY: Hypoxia. Endotracheal tube placement. COMPARISON STUDY: No previous studies for comparison. FINDINGS: Tip of endotracheal tube is 1.3 cm above the gayla. There is no pneumothorax or pleural effusion. There is suspected left lower lung consolidation with air bronchograms. There is right infrahilar opacity is well. Enlargement of the cardiac silhouette is accentuated on this supine portable exam. There is no radiographic evidence for pulmonary edema. Lung volumes are mildly diminished. IMPRESSION: 1. Tip of endotracheal tube 1.3 cm above the gayla. 2. Bilateral lower lung opacities, left greater than right, which favor pneumonia. Atelectasis could appear similar. 3. No pneumothorax or pleural effusion. 4. Apparent enlargement of the cardiac silhouette which is likely technical on this portable supine AP exam. Electronically signed by: Shakeel Hamilton M.D. 03/24/2018 7:36 AM Dictated Date/Time: 03/24/2018 7:32 AM
--- NOTE | 2018-03-24 08:00 | Psychiatric Consultation ---
Psychiatric Consultation Date of Service: Mar 24, 2018. Consult received for 22 yo female who presented after polydrug overdose. Patient currently intubated and so will complete interview when patient appropriate. In the meanwhile the liaison nurse will clarify medications and providers. The patient should not be allowed to leave the hospital AMA and she will require inpatient mental health treatment.
--- NOTE | 2018-03-24 08:02 | Progress Note ---
Medicine Progress Note Date & Time of Visit: Mar 24, 2018 at 07:30 . Subjective 22 YO female with bipolar disorder. Admitted last night with overdose (alcohol, suspected clonazepam +/- other meds) . No witnessed emesis. Intubated in ED for airway protection. Remains on ventilator. Family at bedside. . Objective Last 8 Hrs Date Time Temp Pulse Resp B/P (MAP) Pulse Ox O2 Delivery O2 Flow Rate FiO2 03/24/18 07:01 35.6 87 16 102/50 (77) 99 03/24/18 06:57 35.6 88 16 100/50 (71) 99 03/24/18 06:41 30 03/24/18 06:37 35.5 92 20 115/46 99 Mechanical Ventilator 30 03/24/18 06:18 35.5 95 12 115/46 (73) 99 03/24/18 06:10 50 03/24/18 05:55 89 15 97/51 100 03/24/18 05:41 35.3 89 15 97/51 100 Mechanical Ventilator 50 03/24/18 05:36 93 15 102/54 100 Mechanical Ventilator 50 03/24/18 05:31 94 16 109/51 100 Mechanical Ventilator 50 03/24/18 05:31 50 03/24/18 05:26 95 14 111/59 100 Mechanical Ventilator 50 03/24/18 05:21 93 16 118/56 100 Mechanical Ventilator 50 03/24/18 05:16 93 13 121/66 100 Mechanical Ventilator 03/24/18 05:11 92 12 106/51 100 Mechanical Ventilator 03/24/18 05:06 93 12 129/47 100 Mechanical Ventilator 03/24/18 05:05 136/61 03/24/18 05:01 113 17 147/67 99 Mechanical Ventilator 18 04:56 114 25 165/83 100 Mechanical Ventilator 18 04:55 100 03/24/18 04:52 124 21 171/101 100 Mechanical Ventilator 18 04:47 100 03/24/18 04:46 111 16 115/62 99 Nasal Cannula 3.0 18 04:41 103 16 109/54 99 Nasal Cannula 3.0 18 04:36 101 17 104/55 98 Nasal Cannula 3.0 18 04:31 98 17 111/55 98 Nasal Cannula 3.0 8/19/18 04:21 99 16 94/59 97 Nasal Cannula 3.0 03/24/18 04:11 98 16 80/57 96 Nasal Cannula 3.0 03/24/18 04:01 98 24 94/50 97 Nasal Cannula 3.0 03/24/18 03:56 Nasal Cannula 3.0 03/24/18 03:51 102 17 87/45 96 Nasal Cannula 3.0 03/24/18 03:41 90/43 03/24/18 03:40 105 23 91/48 93 Nasal Cannula 3.0 03/24/18 03:31 97 21 76/45 97 Nasal Cannula 3.0 03/24/18 03:21 108 23 88/49 94 Room Air 03/24/18 03:21 89 22 82/48 99 03/24/18 03:15 96 03/24/18 03:11 83/35 90 Nasal Cannula 3.0 03/24/18 03:10 69/40 88 Room Air Physical Exam: General- intubated on vent; no acute distress Eyes- anicteric ENT- oral ETT, oral GT Lungs- scattered rhonchi; no respiratory distress Cardiovascular- RRR; no JVD; no pretibial edema Abdomen- quiet bowel sounds, soft, nontender Extremities- no cyanosis; no calf tenderness Neuro- sedated, opens eyes to voice Skin- warm & dry . Laboratory Results: Last 24 Hours Test 03/24/18 02:38 03/24/18 03:15 03/24/18 03:17 03/24/18 04:32 White Blood Count 13.72 K/uL Red Blood Count 4.62 M/uL Hemoglobin 12.1 g/dL Hematocrit 38.4 % Mean Corpuscular Volume 83.1 fL Mean Corpuscular Hemoglobin 26.2 pg Mean Corpuscular Hemoglobin Concent 31.5 g/dl Platelet Count 487 K/uL Mean Platelet Volume 10.4 fL Neutrophils (%) (Auto) 72.2 % Lymphocytes (%) (Auto) 23.0 % Monocytes (%) (Auto) 3.3 % Eosinophils (%) (Auto) 0.6 % Basophils (%) (Auto) 0.3 % Neutrophils # (Auto) 9.92 K/uL Lymphocytes # (Auto) 3.15 K/uL Monocytes # (Auto) 0.45 K/uL Eosinophils # (Auto) 0.08 K/uL Basophils # (Auto) 0.04 K/uL RDW Standard Deviation 42.8 fL RDW Coefficient of Variation 14.3 % Immature Granulocyte % (Auto) 0.6 % Immature Granulocyte # (Auto) 0.08 K/uL Activated Partial Thromboplast Time 28.0 SECONDS Partial Thromboplastin Ratio 1.1 Sodium Level 140 mmol/L Potassium Level 3.8 mmol/L Chloride Level 107 mmol/L Carbon Dioxide Level 23 mmol/L Anion Gap 10.0 mmol/L Blood Urea Nitrogen 8 mg/dl Creatinine 0.69 mg/dl Est Creatinine Clear Calc Drug Dose 174.1 ml/min Estimated GFR () 143.2 Estimated GFR (Non- 123.6 BUN/Creatinine Ratio 10.9 Random Glucose 111 mg/dl Osmolality 341 mOsm/kg Calcium Level 9.0 mg/dl Magnesium Level 2.1 mg/dl Total Bilirubin 0.2 mg/dl Direct Bilirubin < 0.1 mg/dl Aspartate Amino Transf (AST/SGOT) 8 U/L Alanine Aminotransferase (ALT/SGPT) 19 U/L Alkaline Phosphatase 82 U/L Troponin I < 0.015 ng/ml Pro-B-Type Natriuretic Peptide 49 pg/ml Total Protein 7.7 gm/dl Albumin 3.7 gm/dl Procalcitonin < 0.05 ng/ml Thyroid Stimulating Hormone (TSH) 1.840 uIu/ml Human Chorionic Gonadotropin, Qual NEG Salicylates Level < 1.7 mg/dl Acetaminophen Level < 2 ug/ml [place] Level 0.6 mMOL/L Urine Color YELLOW Urine Appearance CLEAR Urine pH 6.0 Urine Specific [place] 1.005 Urine Protein NEG Urine Glucose (UA) NEG Urine Ketones NEG Urine Occult Blood NEG Urine Nitrite NEG Urine Bilirubin NEG Urine Urobilinogen NEG Urine Leukocyte Esterase NEG Urine Opiates Screen NEG Urine Methadone, Qualitative NEG Urine Barbiturates NEG Urine Phencyclidine (PCP) Level NEG Ur Amphetamine/Methamphetamine NEG MDMA (Ecstasy) Screen NEG Urine Benzodiazepines Screen NEG Urine Cocaine Metabolite NEG Urine Marijuana (THC) NEG Ethyl Alcohol mg/dL 166.0 mg/dl Bedside Glucose 98 mg/dl Test 03/24/18 06:30 03/24/18 06:41 03/24/18 07:07 Blood Gas Sample Site L Radial Bedside Blood Gas pH (LAB) 7.27 Bedside Blood Gas pCO2 (LAB) 45 mmHg Bedside Blood Gas pO2 (LAB) 165 mmHg Bedside Blood Gas HCO3 (LAB) 21 meq/L Bedside Blood Gas Total CO2 23 mEq/l Bedside Blood Gas Base Excess (LAB) -6.0 meq/L Bedside Blood Gas O2 Saturation 99.0 % Bronson Test Pass Oxygen Delivery Device Ventilator Bedside Oxygen Rate (breaths/min) 12 Blood Gas Minute Ventilation 6.6 Bedside FiO2 50 % Blood Gas Tidal Volume 500 Blood Gas PEEP 5 Lactic Acid Level 1.5 mmol/L Bedside Glucose 103 mg/dl Date/Time Source Procedure Growth Status 03/24/18 06:45 Blood Blood Culture Pending Received 03/24/18 06:41 Blood Blood Culture Pending Received 03/24/18 06:15 Nasal MRSA DNA Surveillance Screen Pending Received Assessment & Plan POLYSUBSTANCE OVERDOSE Intentional overdose. Drinking vodka. Ethyl alcohol level 166. Apparently ingested unknown quantity of clonazepam- open bottle was with patient. Uncertain whether or not she ingested other meds (reportedly there were unopened bottles of lithium and Seroquel). Ethanol level was 166. Urine tox screen negative. [place] 0.6. Serum salicylates and acetaminophen not detectable. Hypotensive and hypoxic in ED. BP improved with fluid resuscitation and norepinephrine. No arrhythmias or seizures. Remains sedated. Support care. RESPIRATORY Intubated in ED for airway protection and hypoxia. Vent management per CCM. PULMONARY DENSITIES Chest x-ray showed bibasilar densities. At risk for aspiration. No witnessed emesis. No fever. Procalcitonin < 0.05. Follow. DEPRESSION / SUICIDE ATTEMPT Psychiatry consulted. GI PROPHYLAXIS IV pantoprazole while acutely ill. VTE PROPHYLAXIS SQ enoxaparin. DISPOSITION To be determined. . Current Inpatient Medications: Current Inpatient Medications Medications (Trade) Dose Ordered Sig/Gina Route Start Time Stop Time Status Last Admin Dose Admin Lactated Ringer's 1,000 ml @ 100 mls/hr Q10H IV 03/24/18 05:45 04/23/18 05:44 03/24/18 07:03 100 MLS/HR Enoxaparin Sodium (Lovenox Inj) 40 mg Q24H SQ 03/24/18 06:00 04/23/18 05:59 UNV Fentanyl Citrate (Fentanyl Inj) 25 mcg Q1H PRN IV 03/24/18 06:00 04/07/18 05:59 Nitroglycerin (Nitrostat Tab) 0.4 mg UD PRN SL 03/24/18 06:00 04/23/18 05:59 Pantoprazole Sodium 40 mg/ Syringe 10 ml @ 5 mls/min DAILY@1100 IV 03/24/18 11:00 04/23/18 10:59 Miscellaneous Information (Icu Protocol For Hyperglycemia) 1 ea PRN PRN N/A 03/24/18 06:00 03/26/18 05:59 Prochlorperazine Edisylate 5 mg/ Syringe 5 ml @ 5 mls/min Q6H PRN IV 03/24/18 06:00 04/23/18 05:59 Levalbuterol (Xopenex Hfa Inhaler) 4 puffs Q6H INH 03/24/18 06:00 04/23/18 05:59 Ipratropium [place] (Atrovent Hfa Inhaler) 4 puffs Q6H INH 03/24/18 06:00 04/23/18 05:59
--- NOTE | 2018-03-24 08:41 | Critical Care Consultation ---
Critical Care Consultation Date of Consultation: Mar 24, 2018. Attending Physician: Chinedu Talbert M.D. Reason for Consultation: Respiratory failure, probable intentional drug ingestion History of Present Illness Unable to elicit history from patient, history largely obtained from medical records, emergency medicine department, Dwain Gotti MD, family present at bedside additional history obtained from Patient is 22-year-old female who presented to the emergency department via EMS. The patient's states that the patient and himself were drinking alcohol at a friend's house. Reportedly upon their arrival back home patient was looking up "the easiest drugs to overdose on". Later on in the night the patient received a text message, "I love you, near the best I could ask for" purportedly he found the patient laying in the bathtub with her clonazepam medication on the floor. Per ED records the reported she took the clonazepam and with intentions to kill her self and he reportedly completed 302. Patient also has a history of lithium and Seroquel use however, he was on sure if she took those medications. Reportedly the patient stopped taking all her medications approximately 1 month ago. She has a history of bipolar type II disorder and depression for which she sees a psychiatrist. She reportedly experiences depression when she drinks alcohol, she has felt lonely lately and has had social stressors with friends. She has never been hospitalized against her will more committed to mental health facility. Patient's last menstrual period was approximately 1 week ago. Purported alcohol use tonight was 6 shots of vodka. When I was notified of the emergency department, there was report of the patient dropping her blood pressure, given the somnolence and low blood pressure with the intention to start Levophed I requested the patient be intubated prior to transfer to the ICU. There is no history obtained from the reports that they were not drinking at a friend's house where they were drinking in their own residence. She also has a history about weekly alcohol use without withdrawal symptoms. She has been taking her medications as prescribed for approximately 1 week. It is unclear how much clonazepam she had taken but she takes 1.5 tablets twice daily the medication was last filled on February 19 for 90 tablets. The tablets that were found scattered on the floor the collected and flushed on the toilet to get them out of the house. Past Medical/Surgical History Bipolar type II Depression [place] use Social History Smoking Status: Light Tobacco Smoker Drug Use: marijuana (Last use within 1 month per ) Marital Status: single Housing Status: lives with family Occupation Status: employed Allergies Coded Allergies: Penicillins (Unverified Allergy, Unknown, FAMILY ALLERGY, 08/04/17) Home Medications Scheduled Clonazepam (Klonopin), 1.5 MG PO AMPM Dexamethasone Sod Phos (Dexamethasone Sodium Phos), 4 MG TOP UD Ergocalciferol (Vitamin D 05122 Unit), 50,000 UNIT PO WK [place] Carbonate ([place] Carbonate), 300 MG PO QAM [place] Carbonate ([place] Carbonate), 600 MG PO HS Omeprazole (Prilosec), 20 MG PO DAILY Quetiapine Fumarate (Seroquel), 50 MG PO HS Sertraline (Zoloft), 150 MG PO QAM Current Inpatient Medications Current Inpatient Medications Medications (Trade) Dose Ordered Sig/Gina Route Start Time Stop Time Status Last Admin Dose Admin Lactated Ringer's 1,000 ml @ 100 mls/hr Q10H IV 03/24/18 05:45 04/23/18 05:44 03/24/18 07:03 100 MLS/HR Enoxaparin Sodium (Lovenox Inj) 40 mg Q24H SQ 03/24/18 06:00 04/23/18 05:59 UNV Fentanyl Citrate (Fentanyl Inj) 25 mcg Q1H PRN IV 03/24/18 06:00 04/07/18 05:59 Nitroglycerin (Nitrostat Tab) 0.4 mg UD PRN SL 03/24/18 06:00 04/23/18 05:59 Pantoprazole Sodium 40 mg/ Syringe 10 ml @ 5 mls/min DAILY@1100 IV 03/24/18 11:00 04/23/18 10:59 Miscellaneous Information (Icu Protocol For Hyperglycemia) 1 ea PRN PRN N/A 03/24/18 06:00 03/26/18 05:59 Prochlorperazine Edisylate 5 mg/ Syringe 5 ml @ 5 mls/min Q6H PRN IV 03/24/18 06:00 04/23/18 05:59 Levalbuterol (Xopenex Hfa Inhaler) 4 puffs Q6H INH 03/24/18 06:00 04/23/18 05:59 Ipratropium [place] (Atrovent Hfa Inhaler) 4 puffs Q6H INH 03/24/18 06:00 04/23/18 05:59 Review of Systems Unable to obtain secondary to patient intubation Physical Exam Date Time Temp Pulse Resp B/P (MAP) Pulse Ox O2 Delivery O2 Flow Rate FiO2 03/24/18 07:45 30 03/24/18 07:01 35.6 87 16 102/50 (77) 99 03/24/18 06:57 35.6 88 16 100/50 (71) 99 03/24/18 06:41 30 03/24/18 06:37 35.5 92 20 115/46 99 Mechanical Ventilator 30 03/24/18 06:18 35.5 95 12 115/46 (73) 99 03/24/18 06:10 50 03/24/18 05:55 89 15 97/51 100 03/24/18 05:41 35.3 89 15 97/51 100 Mechanical Ventilator 50 03/24/18 05:36 93 15 102/54 100 Mechanical Ventilator 50 03/24/18 05:31 94 16 109/51 100 Mechanical Ventilator 50 03/24/18 05:31 50 03/24/18 05:26 95 14 111/59 100 Mechanical Ventilator 50 03/24/18 05:21 93 16 118/56 100 Mechanical Ventilator 50 03/24/18 05:16 93 13 121/66 100 Mechanical Ventilator 03/24/18 05:11 92 12 106/51 100 Mechanical Ventilator 03/24/18 05:06 93 12 129/47 100 Mechanical Ventilator 03/24/18 05:05 136/61 03/24/18 05:01 113 17 147/67 99 Mechanical Ventilator 03/24/18 04:56 114 25 165/83 100 Mechanical Ventilator 03/24/18 04:55 100 03/24/18 04:52 124 21 171/101 100 Mechanical Ventilator 03/24/18 04:47 100 03/24/18 04:46 111 16 115/62 99 Nasal Cannula 3.0 03/24/18 04:41 103 16 109/54 99 Nasal Cannula 3.0 03/24/18 04:36 101 17 104/55 98 Nasal Cannula 3.0 03/24/18 04:31 98 17 111/55 98 Nasal Cannula 3.0 03/24/18 04:21 99 16 94/59 97 Nasal Cannula 3.0 03/24/18 04:11 98 16 80/57 96 Nasal Cannula 3.0 03/24/18 04:01 98 24 94/50 97 Nasal Cannula 3.0 03/24/18 03:56 Nasal Cannula 3.0 03/24/18 03:51 102 17 87/45 96 Nasal Cannula 3.0 03/24/18 03:41 90/43 03/24/18 03:40 105 23 91/48 93 Nasal Cannula 3.0 03/24/18 03:31 97 21 76/45 97 Nasal Cannula 3.0 03/24/18 03:21 108 23 88/49 94 Room Air 03/24/18 03:21 89 22 82/48 99 03/24/18 03:15 96 03/24/18 03:11 83/35 90 Nasal Cannula 3.0 03/24/18 03:10 69/40 88 Room Air Laboratory Results Last 24 Hours Test 03/24/18 02:38 03/24/18 03:15 03/24/18 03:17 03/24/18 04:32 White Blood Count 13.72 K/uL Red Blood Count 4.62 M/uL Hemoglobin 12.1 g/dL Hematocrit 38.4 % Mean Corpuscular Volume 83.1 fL Mean Corpuscular Hemoglobin 26.2 pg Mean Corpuscular Hemoglobin Concent 31.5 g/dl Platelet Count 487 K/uL Mean Platelet Volume 10.4 fL Neutrophils (%) (Auto) 72.2 % Lymphocytes (%) (Auto) 23.0 % Monocytes (%) (Auto) 3.3 % Eosinophils (%) (Auto) 0.6 % Basophils (%) (Auto) 0.3 % Neutrophils # (Auto) 9.92 K/uL Lymphocytes # (Auto) 3.15 K/uL Monocytes # (Auto) 0.45 K/uL Eosinophils # (Auto) 0.08 K/uL Basophils # (Auto) 0.04 K/uL RDW Standard Deviation 42.8 fL RDW Coefficient of Variation 14.3 % Immature Granulocyte % (Auto) 0.6 % Immature Granulocyte # (Auto) 0.08 K/uL Activated Partial Thromboplast Time 28.0 SECONDS Partial Thromboplastin Ratio 1.1 Sodium Level 140 mmol/L Potassium Level 3.8 mmol/L Chloride Level 107 mmol/L Carbon Dioxide Level 23 mmol/L Anion Gap 10.0 mmol/L Blood Urea Nitrogen 8 mg/dl Creatinine 0.69 mg/dl Est Creatinine Clear Calc Drug Dose 174.1 ml/min Estimated GFR () 143.2 Estimated GFR (Non- 123.6 BUN/Creatinine Ratio 10.9 Random Glucose 111 mg/dl Osmolality 341 mOsm/kg Calcium Level 9.0 mg/dl Magnesium Level 2.1 mg/dl Total Bilirubin 0.2 mg/dl Direct Bilirubin < 0.1 mg/dl Aspartate Amino Transf (AST/SGOT) 8 U/L Alanine Aminotransferase (ALT/SGPT) 19 U/L Alkaline Phosphatase 82 U/L Troponin I < 0.015 ng/ml Pro-B-Type Natriuretic Peptide 49 pg/ml Total Protein 7.7 gm/dl Albumin 3.7 gm/dl Procalcitonin < 0.05 ng/ml Thyroid Stimulating Hormone (TSH) 1.840 uIu/ml Human Chorionic Gonadotropin, Qual NEG Salicylates Level < 1.7 mg/dl Acetaminophen Level < 2 ug/ml [place] Level 0.6 mMOL/L Urine Color YELLOW Urine Appearance CLEAR Urine pH 6.0 Urine Specific [place] 1.005 Urine Protein NEG Urine Glucose (UA) NEG Urine Ketones NEG Urine Occult Blood NEG Urine Nitrite NEG Urine Bilirubin NEG Urine Urobilinogen NEG Urine Leukocyte Esterase NEG Urine Opiates Screen NEG Urine Methadone, Qualitative NEG Urine Barbiturates NEG Urine Phencyclidine (PCP) Level NEG Ur Amphetamine/Methamphetamine NEG MDMA (Ecstasy) Screen NEG Urine Benzodiazepines Screen NEG Urine Cocaine Metabolite NEG Urine Marijuana (THC) NEG Ethyl Alcohol mg/dL 166.0 mg/dl Bedside Glucose 98 mg/dl Test 03/24/18 06:30 03/24/18 06:41 03/24/18 07:07 Blood Gas Sample Site L Radial Bedside Blood Gas pH (LAB) 7.27 Bedside Blood Gas pCO2 (LAB) 45 mmHg Bedside Blood Gas pO2 (LAB) 165 mmHg Bedside Blood Gas HCO3 (LAB) 21 meq/L Bedside Blood Gas Total CO2 23 mEq/l Bedside Blood Gas Base Excess (LAB) -6.0 meq/L Bedside Blood Gas O2 Saturation 99.0 % Bronson Test Pass Oxygen Delivery Device Ventilator Bedside Oxygen Rate (breaths/min) 12 Blood Gas Minute Ventilation 6.6 Bedside FiO2 50 % Blood Gas Tidal Volume 500 Blood Gas PEEP 5 Lactic Acid Level 1.5 mmol/L Bedside Glucose 103 mg/dl Diagnostic Results I reviewed the chest x-ray dated March 24, 2018 at 435 with noted concerns for bilateral infiltrate: Aspiration versus pneumonia versus atelectasis In reviewing laboratory values the patient was mildly acidotic on blood gas analysis, there is no anion gap, there is an increased osmolality of the serum however this is accounted for with the patient's alcohol level, there does not appear to be a toxic alcohol ingestion Salicylates and acetaminophen are negative and the patient's lithium levelIs 0.6 which is consistent with discontinuation of the medication. Assessment & Plan Reason Critically Ill: 22-year-old female with history of bipolar disorder with history of noncompliance with her prescribed medication regimen who likely ingested intentional drug overdose with intent of self-harm while intoxicated PLAN: Neuro: Intentional drug overdose -Close observation, benzodiazepine -Mental health evaluation when clear medically Sedation and analgesia -Intermittent fentanyl as needed as needed Polysubstance abuse -Reported marijuana use within the last month Resp: Scattered rhonchi bilaterally -Wean to CPAP and plan for probable extubation later this morning CV: S1-S2 normal sinus rhythm on bedside monitor no hypotension noted in ICU -Troponins negative 1 Fluids/Renal: [place] use -Level within normal limits -We will check repeat in several hours to confirm there is no rebound nor acute ingestion ID: Early infiltrates noted on chest x-ray -Procalcitonin negative, patient 100% on 30% FiO2 suspect mild atelectasis versus mild aspiration pneumonitis GI/Nutrition: Obesity -BMI 39.6 -May contribute to chest x-ray findings -LFTs within normal limits, Tylenol negative Heme: DVT prophylaxis -Lovenox 40 mg daily Endocrine: ICU hyperglycemia protocol Vascular access: Peripheral IVs Code Status: Full I have personally spent 85 minutes of critical care time in the direct management of this patient. This is a life/limb threatening event. This includes time spent evaluating patient, direct bedside care, chart review, placing orders, interpretation of diagnostic studies, discussion with consultants, patient, and/or family members regarding treatment decisions, as well as other required patient management activities. This time is exclusive of all separately billable procedures, and teaching time and separate from and in addition to any other critical care service time.
[2018-03-24 09:59] LABS: INR 1.1 (0.9-1.1)
[2018-03-24] MEDS ORDERED: PANTOprazole INJ 40 MG in SYRINGE 0 ML IV SCH (11:00)
[2018-03-24] MEDS: ENOXAPARIN 40 MG/0.4 ML SYR SQ SCH (12:19)
[2018-03-24] MEDS: IPRATROPIUM BROMIDE NEB SOLN 0.02% 2.5 ML VIAL INH SCH ×2 (15:00→18:50)
[2018-03-24] MEDS: LEVALBUTEROL 1.25MG/0.5ML NEB INH SCH ×2 (15:00→18:50)
[2018-03-24] MEDS ORDERED: QUETIAPINE FUMARATE 25 MG TAB PO SCH (21:00)
[2018-03-24] MEDS ORDERED: LITHIUM CARBONATE 300 MG TAB PO SCH (21:00)
[2018-03-25] VITALS (7 sets, daily range): BP systolic 117–148; BP diastolic 80–93; PULSE 90–99; TEMP 36.5–36.9; O2SAT 97–100
[2018-03-25] MEDS ORDERED: QUETIAPINE FUMARATE 25 MG TAB PO ONE (00:49)
[2018-03-25] MEDS ORDERED: QUETIAPINE FUMARATE 25 MG TAB PO PRN (01:00)
[2018-03-25] MEDS: IPRATROPIUM BROMIDE NEB SOLN 0.02% 2.5 ML VIAL INH SCH ×5 (02:16→14:35)
[2018-03-25] MEDS: LEVALBUTEROL 1.25MG/0.5ML NEB INH SCH ×5 (02:16→14:34)
[2018-03-25 06:12] LABS: BASO % 0.2 %; BASO ABS # 0.03 K/uL (0-0.2); EOS % 1.1 %; EOS ABS # 0.14 K/uL (0-0.5); HEMATOCRIT 34.9 % (37-47); HEMOGLOBIN 10.9 g/dL (12.0-16.0); IG# 0.05 K/uL (0.00-0.02); LYMPH % 30.7 %; LYMPH ABS # 3.85 K/uL (1.2-3.4); MEAN CELL VOLUME 84.3 fL (80-100); MEAN CORPUSCULAR HEMOGLOBIN 26.3 pg (25-34); MEAN CORPUSCULAR HGB CONC 31.2 g/dl (32-36); MEAN PLATELET VOLUME 10.6 fL (7.4-10.4); MONO % 4.9 %; MONO ABS # 0.62 K/uL (0.11-0.59); NEUT % 62.7 %; NEUT ABS # 7.87 K/uL (1.4-6.5); PLATELET COUNT 361 K/uL (130-400); RED CELL DISTRIBUTION WIDTH CV 14.6 % (11.5-14.5); RED CELL DISTRIBUTION WIDTH SD 45.2 fL (36.4-46.3); WHITE BLOOD COUNT 12.56 K/uL (4.8-10.8)
[2018-03-25 06:44] LABS: ALBUMIN 2.9 gm/dl (3.4-5.0); ALKALINE PHOSPHATASE 79 U/L (45-117); ALT/SGPT 15 U/L (12-78); AST/SGOT 8 U/L (15-37); BLOOD UREA NITROGEN 11 mg/dl (7-18); CALCIUM 8.7 mg/dl (8.5-10.1); CARBON DIOXIDE 23 mmol/L (21-32); CREATININE 0.54 mg/dl (0.60-1.20); GLUCOSE 135 mg/dl (70-99); POTASSIUM 4.4 mmol/L (3.5-5.1); SODIUM 140 mmol/L (136-145); TOTAL PROTEIN 6.5 gm/dl (6.4-8.2)
[2018-03-25] MEDS ORDERED: PANTOprazole SOD 40 MG TAB PO SCH ×2 (09:00→21:00)
[2018-03-25] MEDS ORDERED: SERTRALINE HCL 100 MG TAB PO SCH (09:00)
[2018-03-25] MEDS ORDERED: LITHIUM CARBONATE 300 MG TAB PO SCH (09:00)
[2018-03-25] MEDS: ENOXAPARIN 40 MG/0.4 ML SYR SQ SCH (10:04)
--- NOTE | 2018-03-25 11:54 | Psychiatric Consultation ---
Consultation Date of Consultation Mar 25, 2018. Identifying Data 22-year-old female admitted s/p intentional overdose (clonazepam, polysubstance overdose remains unclear as other bottles were unopened). Pt was found by and EMS were called when the patient became unresponsive. Pt was brought to the ED and was intubated prior to being transferred to the ICU. Pt was eventually weaned off of ventilation and was able to be assessed to obtain history. Psychiatric consult requested to evaluate for suicidality. Chief Complaint "It was kind of a combination of things, but I now have a very clear idea as to how it all happened". History of Present Illness Cheryl Austin is a 22-year-old female admitted to the medical floor following an intentional overdose which she admits was an attempt to end her life. Pt was brought to the ED after being found by her in the bathtub, with scattered prescription medications. Pt became unresponsive and EMS was called to transport patient. Pt was intubated in the ED due to respiratory failure and was ultimately admitted to the ICU for ongoing treatment. Pt was extubated and is now able to provide history as to the events leading to admission. 302 petitioning statement was completed by the , Shakeel, and is on the patient 's chart. "8-16: Took a knife the bathroom to cut wrists, attempt unsuccessful, not physical harm. 8-19: drunk, got very sad and upset. Went to bathroom and attempted to overdose on pills. Sent text saying "I love you very much. You' re the best I could ever ask for." Expressed want to commit suicide. Saw her phone - web search for easiest drugs to overdose on." Pt admits that she was diagnosed with bipolar II disorder about 1 year ago and has been regularly seeing Dr. Lan and her therapist, Michael Alvarez since that time. She states she had been doing well on her medications, lithium, sertraline, and quetiapine. She states, "I was doing so well, I guess I thought I didn't need them...so I stopped them cold turkey, that was stupid." This was about 1 month ago. Pt states she was feeling "good" for one week, "hypomanic" for one week, " and the depressed for about 2-3 weeks. She states, "it was the perfect storm of things", sharing that her therapist was out of the country for several weeks, and her was busier than usual at work recently. Pt states, "I started to isolate, I wasn't going to things that were important, I started going to my parent's house less - and I even feel really comfortable there." She states, "I was at the point that things were bad and I was doing the same thing every day. That is like the most frustrating thing for me." Pt admits that she and her had friends over Sunday evening and they had been drinking. She states she had been feeling frustrated with how she had been feeling and decided, "I was just done with it." She admits to taking the medications while her was asleep on the couch. She does report texting her that she loved him. She states, "it was the weirdest thing, because he doesn't wake up for anything, but he woke up when I texted him, he saved my life. I know this is a sign the universe wants me here, because I could be ." She is now denying any suicidal thoughts stating, "I know I'm supposed to be here, I know I'll never get to that point again." Recommendations for inpatient mental health treatment were shared and the patient and 's questions about our unit were answered. Discussed voluntary versus involuntary admission and their concerns were validated. Discussed that psychiatric nurse liaison would follow-up upon medical clearance to have paperwork signed, but would also bring down information on the unit as well. Pt denies other psychiatric concerns currently. Past Psychiatric History Current OP Treatment: psychiatrist (Dr. Lan), therapist (Grabiel Alvarez) Prior Psych Hospitalizations: none Access to a Gun: No Suicide Attempts: Yes (overdosed on prescription medication - 03/24) Past Medical/Surgical History History of Concussion/Seizure: No (1) Respiratory failure, acute (2) Acute alcohol intoxication in patient with alcoholism with blood alcohol level 0.08 to 0.29 Allergies Allergies: Coded Allergies: Penicillins (Unverified Allergy, Unknown, FAMILY ALLERGY, 08/04/17) Home Medications Scheduled Clonazepam (Klonopin), 1.5 MG PO AMPM Dexamethasone Sod Phos (Dexamethasone Sodium Phos), 4 MG TOP UD Ergocalciferol (Vitamin D 15368 Unit), 50,000 UNIT PO WK [place] Carbonate ([place] Carbonate), 300 MG PO QAM [place] Carbonate ([place] Carbonate), 600 MG PO HS Omeprazole (Prilosec), 20 MG PO DAILY Quetiapine Fumarate (Seroquel), 25 MG PO HS Sertraline (Zoloft), 150 MG PO QAM Family History History of Suicide: No History of Substance Abuse: No Psychiatric History: No Alcohol Use Alcohol Use In Past 12 Months: Yes Pt consumes anywhere from 1-5 drinks of alcohol about 1-2 times per week. Pt reports, "I'm in good check of when I'm mentally well enough to drink, I don't do it if I'm not feeling well." Smoking Use Smoking Status: Light Tobacco Smoker Reports social use of cigarettes typically about 1 cigarette about once a week. Substance History Pt reports smoking marijuana about once every 3 months, reporting typically use is to benefit anxiety. Personal History Lives in: [place] with Childhood: Raised in [place], oldest of 3 children with a middle sister and younger brother. Pt was adopted at a young age by her "dad" the father of her younger siblings. Reports relationship with her parents, especially her adoptive father , was dysfunctional, but has improved since moving out of their house. Education: graduated from high school Work History: Pt is currently unemployed due to recent ankle injury. Relationship History: Children: none Spiritual Affiliation: spiritual, not jain Legal History: none Psychological Trauma History: Denies Hx Traumatic Event Review of Systems Psych: denies symptoms other than stated above Constitutional: denied Cardiovascular: denied GI: reports occasional nausea with anxiety Neurologic: denied Remainder of 10 body systems also reviewed and denied other than noted above. Examination Vital Signs Vital Signs Past 12 Hours Date Time Temp Pulse Resp B/P (MAP) Pulse Ox O2 Delivery O2 Flow Rate FiO2 03/25/18 11:22 36.5 93 18 137/91 (106) 98 Room Air 03/25/18 07:39 36.7 93 18 117/80 (92) 97 Room Air 03/25/18 07:10 90 16 98 Room Air 03/25/18 00:00 Room Air Laboratory Results Last 24 Hours Test 03/24/18 14:14 03/24/18 18:39 03/25/18 05:39 [place] Level 0.3 mMOL/L Bedside Glucose 73 mg/dl White Blood Count 12.56 K/uL Red Blood Count 4.14 M/uL Hemoglobin 10.9 g/dL Hematocrit 34.9 % Mean Corpuscular Volume 84.3 fL Mean Corpuscular Hemoglobin 26.3 pg Mean Corpuscular Hemoglobin Concent 31.2 g/dl Platelet Count 361 K/uL Mean Platelet Volume 10.6 fL Neutrophils (%) (Auto) 62.7 % Lymphocytes (%) (Auto) 30.7 % Monocytes (%) (Auto) 4.9 % Eosinophils (%) (Auto) 1.1 % Basophils (%) (Auto) 0.2 % Neutrophils # (Auto) 7.87 K/uL Lymphocytes # (Auto) 3.85 K/uL Monocytes # (Auto) 0.62 K/uL Eosinophils # (Auto) 0.14 K/uL Basophils # (Auto) 0.03 K/uL RDW Standard Deviation 45.2 fL RDW Coefficient of Variation 14.6 % Immature Granulocyte % (Auto) 0.4 % Immature Granulocyte # (Auto) 0.05 K/uL Sodium Level 140 mmol/L Potassium Level 4.4 mmol/L Chloride Level 108 mmol/L Carbon Dioxide Level 23 mmol/L Anion Gap 10.0 mmol/L Blood Urea Nitrogen 11 mg/dl Creatinine 0.54 mg/dl Est Creatinine Clear Calc Drug Dose 223.7 ml/min Estimated GFR () > 150.0 Estimated GFR (Non- 133.9 BUN/Creatinine Ratio 20.1 Random Glucose 135 mg/dl Calcium Level 8.7 mg/dl Total Bilirubin 0.2 mg/dl Aspartate Amino Transf (AST/SGOT) 8 U/L Alanine Aminotransferase (ALT/SGPT) 15 U/L Alkaline Phosphatase 79 U/L Total Protein 6.5 gm/dl Albumin 2.9 gm/dl Globulin 3.6 gm/dl Albumin/Globulin Ratio 0.8 Mental Examination During interview pt is: alert and oriented, cooperative Appearance: appropriately dressed (in hospital gown), appropriately groomed, appeared stated age Eye contact is: good Motor behavior is: no abnormal motor movements (observed while laying in bed) Speech: normal in rate, rhythm & volume Affect: euthymic, other (congruent with reported mood, but not consistent with the context of events preceeding admission) Mood is: other ("I'm good now") Thought process: goal directed, clear, coherent Thought content: reality based without delusions Suicidal thought are: denied (denied since extubation; however serious suicide attempt by substance overdose with other acts of furtherance), Plan: present ( overdosed on medications, was found previously with knife in bathtub), Intent: denied ("I now feel like the universe wants me around, so I'm staying.") Homicidal thoughts are: denied Hallucinations: denies auditory, denies visual Cognition: memory grossly intact, attention grossly intact, language grossly intact Intelligence estimated to be: consistent with level of education Insight: limited Judgement: limited Impression / Recommendations Impression 22-year-old female admitted for intentional substance overdose in the setting of being off medications and experiencing worsening symptoms of bipolar II disorder, current episode depressed. Prior acts of furtherance reported per petitioning statement as patient was found in the bathtub with a knife on 03/21, she was also found in the bathtub with scattered pills on the morning of 03/24 after sending a text to her . Pt's phone shows search history for "easiest drugs to overdose on" per petitioning statement. It is clear from these reports and patient history that this was not an impulsive act. The severity of patient's overdose attempt required intubation and should not be taken lightly. Despite patient denying suicidality currently, it is recommended that the patient receive inpatient mental health treatment to address stressors, assist with stabilization on medications, and allow for coordination of aftercare. She appears to be experiencing a flight into health , which is concerning in that there will be little follow-up to ensure consistency in these feelings if patient is discharged from the medical floor without adequate therapeutic intervention. Pt is at risk for decompensation and further attempts to harm herself if discharge prior to inpatient mental health treatment. 302 petitioning statement completed by and remains on patient's chart. Pt permitted to sign-in voluntarily if willing; however, should compete 302 for involuntary admission if unwilling for treatment, as she is at high-risk for further or future harm to herself. Pt should not be permitted to leave the facility under any circumstances. Would require medically necessary private room at admission due to recent MRSA history, such room is currently available on our unit if medically optimized for inpatient treatment later today. Inventory Assets Strengths: willingness for treatment, good relationship with outpatient providers, supportive and family Needs: healthy and effective coping strategies, safety planning to prevent future attempts Risk Factors Assessment : Yes /single/: No Higher / Fall in social status: No Access to guns: No Health problems: No Mental Health Diagnoses: Yes Substance use disorders: No Previous attempt: Yes (was caught with knife in the bathroom, however, no attempt made) Previous psychiatric stay: No Hopelessness: Yes (when off medications and feeling low) Smoker: Yes Protective Factors Assessment [employer]aritan beliefs: Yes ("spiritual") : Yes Responsible for young children: No Employed: No Stable relationships: Yes Supportive family: Yes Good rapport with provider: Yes Recommendations (1) Suicide attempt 03/25 - Pt now denying suicidal ideation, but admitting attempt was intentional - Recommending inpatient mental health treatment due to severity of attempt and fact that behaviors occurred over several days - 302 petitioning statement on chart, pt should not be allowed to leave facility (2) Bipolar 2 disorder 03/25 - Continue current outpatient psychiatric medications - [place] 300mg qAM, 600mg qHS; sertraline 150mg qAM, quetiapine 25mg prn qHS - Recommend inpatient mental health treatment for further stabilization on medications and focus on safety and discharge planning - 302 petitioning statement per completed and on chart, patient should not be permitted to leave the facility under any circumstances Dr. Domingo Norton has personally been involved in the review of the above case and development of recommendations.
--- NOTE | 2018-03-25 12:35 | DIAGNOSTIC IMAGING REPORT ---
CHEST 2 VIEWS ROUTINE CLINICAL HISTORY: follow-up bibasilar densities COMPARISON STUDY: 03/24/2018 FINDINGS: Endotracheal tube has been removed. There are resolving bibasilar airspace opacities. There is a probable trace right pleural effusion as evidenced by blunting of the right posterior costophrenic angle. There is no failure.[ IMPRESSION: Resolving bibasilar airspace opacities Electronically signed by: Duane Sanchez M.D. 03/25/2018 12:34 PM Dictated Date/Time: 03/25/2018 12:33 PM
[2018-03-25] MEDS ORDERED: LEVALBUTEROL 1.25MG/0.5ML NEB INH PRN (15:00)
[2018-03-25] MEDS ORDERED: IPRATROPIUM BROMIDE NEB SOLN 0.02% 2.5 ML VIAL INH PRN (15:00)
[2018-03-25] MEDS ORDERED: CALCIUM CARBONATE 500 MG CHEWABLE PO PRN (15:45)
--- NOTE | 2018-03-25 16:10 | Progress Note ---
Medicine Progress Note Date & Time of Visit: Mar 25, 2018 at 15:30 . Subjective Patient seen with RN; at bedside. Alert. No fever. Occasional cough. "Heartburn" similar to her usual reflux symptoms; usually takes omeprazole and TUMS at home. No nausea, vomiting. Intermittent sinus tachycardia, no other arrhythmias. No seizures. . Objective Last 8 Hrs Date Time Temp Pulse Resp B/P (MAP) Pulse Ox O2 Delivery O2 Flow Rate FiO2 03/25/18 14:47 36.9 96 22 125/84 (98) 100 Room Air 03/25/18 14:35 90 16 99 Room Air 03/25/18 11:22 36.5 93 18 137/91 (106) 98 Room Air Physical Exam: General- sitting in bed; no acute distress Eyes- anicteric Lungs- clear to auscultation; no respiratory distress Cardiovascular- RRR, tachy; no JVD; no pretibial edema Abdomen- quiet bowel sounds, soft, nontender Extremities- no cyanosis; no calf tenderness Neuro- alert, oriented Skin- warm & dry; few superficial ulcerations bilateral lower extremities, anteriorly below knees; no drainage; no surrounding erythema . Laboratory Results: Last 24 Hours Test 03/24/18 18:39 03/25/18 05:39 Bedside Glucose 73 mg/dl White Blood Count 12.56 K/uL Red Blood Count 4.14 M/uL Hemoglobin 10.9 g/dL Hematocrit 34.9 % Mean Corpuscular Volume 84.3 fL Mean Corpuscular Hemoglobin 26.3 pg Mean Corpuscular Hemoglobin Concent 31.2 g/dl Platelet Count 361 K/uL Mean Platelet Volume 10.6 fL Neutrophils (%) (Auto) 62.7 % Lymphocytes (%) (Auto) 30.7 % Monocytes (%) (Auto) 4.9 % Eosinophils (%) (Auto) 1.1 % Basophils (%) (Auto) 0.2 % Neutrophils # (Auto) 7.87 K/uL Lymphocytes # (Auto) 3.85 K/uL Monocytes # (Auto) 0.62 K/uL Eosinophils # (Auto) 0.14 K/uL Basophils # (Auto) 0.03 K/uL RDW Standard Deviation 45.2 fL RDW Coefficient of Variation 14.6 % Immature Granulocyte % (Auto) 0.4 % Immature Granulocyte # (Auto) 0.05 K/uL Sodium Level 140 mmol/L Potassium Level 4.4 mmol/L Chloride Level 108 mmol/L Carbon Dioxide Level 23 mmol/L Anion Gap 10.0 mmol/L Blood Urea Nitrogen 11 mg/dl Creatinine 0.54 mg/dl Est Creatinine Clear Calc Drug Dose 223.7 ml/min Estimated GFR () > 150.0 Estimated GFR (Non- 133.9 BUN/Creatinine Ratio 20.1 Random Glucose 135 mg/dl Calcium Level 8.7 mg/dl Total Bilirubin 0.2 mg/dl Aspartate Amino Transf (AST/SGOT) 8 U/L Alanine Aminotransferase (ALT/SGPT) 15 U/L Alkaline Phosphatase 79 U/L Total Protein 6.5 gm/dl Albumin 2.9 gm/dl Globulin 3.6 gm/dl Albumin/Globulin Ratio 0.8 Assessment & Plan POLYSUBSTANCE OVERDOSE Apparently ingested unknown quantity of clonazepam-. Uncertain whether or not she ingested other meds (reportedly there were unopened bottles of lithium and Seroquel). Ethanol level was 166. Urine tox screen negative. [place] 0.6. Serum salicylates and acetaminophen not detectable. Hypotensive and hypoxic in ED. Required endotracheal intubation. BP improved with fluid resuscitation and norepinephrine. No arrhythmias or seizures. RESPIRATORY Intubated in ED for airway protection and hypoxia. Weaned and extubated. PULMONARY DENSITIES Chest x-ray at time of admission showed bibasilar densities. At risk for aspiration. No witnessed emesis. No fever. Procalcitonin < 0.05. PA and lateral films today showed improvement of bibasilar densities. Occasional cough, but lungs clear. Oxygenating well- 97-100% on RA. Slightly elevated WBC count nonspecific. No apparent indication for antibiotics at this time. Incentive spirometry. Reconsider need for antibiotics if pt becomes febrile or pulmonary status worsens. GERD Increase PPI to BID until better. TUMS PRN. NASAL MRSA COLONIZATION Nasal MRSA screen in ICU positive. No apparent indication for antibiotic therapy at this time. Contact precautions. SKIN LESIONS Skin lesions on lower extremities as described above. Etiology uncertain. They do not appear to be infected and no need for antibiotics at this time. Follow-up with PCP or Dermatology if they do not heal or if new lesions occur. DEPRESSION / SUICIDE ATTEMPT Psychiatry consulted. GI PROPHYLAXIS Received IV pantoprazole while acutely ill. VTE PROPHYLAXIS SQ enoxaparin. Ambulate. DISPOSITION Medically stable for discharge to home or behavioral health unit. Discharge disposition to be determined by Behavioral Health Team. . Current Inpatient Medications: Current Inpatient Medications Medications (Trade) Dose Ordered Sig/Gina Route Start Time Stop Time Status Last Admin Dose Admin Enoxaparin Sodium (Lovenox Inj) 40 mg DAILY SQ 03/24/18 11:30 04/23/18 11:29 03/25/18 10:04 40 MG Prochlorperazine Edisylate 5 mg/ Syringe 5 ml @ 5 mls/min Q6H PRN IV 03/24/18 06:00 04/23/18 05:59 [place] Carbonate ([place] Carbonate Tab) 600 mg HS PO 03/24/18 21:00 04/23/18 20:59 03/24/18 21:27 600 MG Quetiapine Fumarate (seroQUEL TAB) 25 mg HS PO 03/24/18 21:00 04/23/18 20:59 03/25/18 01:34 25 MG Sertraline HCl (Zoloft Tab) 150 mg QAM PO 03/25/18 09:00 04/24/18 08:59 03/25/18 10:03 150 MG [place] Carbonate ([place] Carbon[place] Tab) 300 mg QAM PO 03/25/18 09:00 04/24/18 08:59 03/25/18 10:03 300 MG Pantoprazole Sodium (Protonix Tab) 40 mg QAM PO 03/25/18 09:00 04/24/18 08:59 03/25/18 07:25 40 MG Quetiapine Fumarate (seroQUEL TAB) 25 mg HS PRN PO 03/25/18 01:00 04/24/18 00:59 Ipratropium [place] (Atrovent 0.02% 0.5MG/2.5ML Neb) 0.5 mg Q6R PRN INH 03/25/18 15:00 04/23/18 14:59 Levalbuterol (Xopenex 1.25MG/ 0.5ML Neb) 1.25 mg Q6R PRN INH 03/25/18 15:00 04/23/18 14:59
[2018-03-25] MEDS ORDERED: CALCIUM CARBONATE 500 MG CHEWABLE PO STA (16:23)
--- NOTE | 2018-03-25 17:59 | Discharge Instructions ---
Discharge Instructions Date of Service Mar 25, 2018. Admission Reason for Admission: drug overdose . Discharge Discharge Diagnosis / Problem: drug overdose Discharge Goals Goal(s): Therapeutic intervention Activity Recommendations Activity Limitations: resume your previous activity . Instructions / Follow-Up Instructions / Follow-Up APPOINTMENTS: Medical follow-up with Dr. Zepeda after discharge. OTHER INSTRUCTIONS: Continue to do breathing exercises (incentive spirometry) for a few more days- 10 repetitions, several times a day. Seek medical attention if ulcers on legs get worse, no not heal, or if new blisters develop. 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 This usually does not make people sick and usually does not have to be treated with antibiotics. Wash your hands regularly. Avoid contact with people that might have a weak immune system (cancer patients , the elderly,etc). Seek medical attention if you have: * temperature above 101 * chest pain, worsening cough, or trouble breathing * abdominal pain, nausea, vomiting * diarrhea, dark stools or bloody stools * any unanswered questions or concerns Call 911 if symptoms are severe. Please take good care of yourself. Chinedu Talbert . Current Hospital Diet Patient's current hospital diet: Regular Diet Discharge Diet Recommended Diet: Regular Diet Pending Studies Studies pending at discharge: no Medical Emergencies . Who to Call and When: Medical Emergencies: If at any time you feel your situation is an emergency, please call 911 immediately. . Non-Emergent Contact Non-Emergency issues call your: Primary Care Provider . . "Provider Documentation" section prepared by Chinedu Talbert. .
[2018-03-25] MEDS ORDERED: CALC500C50 PO (18:01)
--- NOTE | 2018-03-25 18:12 | Discharge Summary ---
Discharge Summary Date of Service Mar 25, 2018. Discharge Summary Admission Date: Mar 24, 2018 at 05:25 Discharge Date: Mar 25, 2018 Discharge Disposition: Acute care mental health Principal Diagnosis: polysubstance overdose- alcohol and clonazepam OTHER ACUTE DIAGNOSES: hypoxia hypotension . Secondary Diagnoses/Problems: bipolar disorder GERD . Procedures: endotracheal intubation mechanical ventilation IV medications . Consultations: Critical Care Medicine Psychiatry . Medication Reconciliation Continued Medications: Calcium Carbonate (Antacid) (Tums) 500 Mg Chw 500 MG PO PRN for Indigestion Dexamethasone Sod Phos (Dexamethasone Sodium Phos) 4 Mg/Ml Inj 4 MG TOP UD USE TOPICALLY FOR IONTOPHORESIS DURING PHYSICAL THERAPY TWICE WEEKLY. Ergocalciferol (Vitamin D 28191 Unit) 50,000 Unit Cap 21764 UNIT PO WK, CAP EVERY SUNDAY. [place] Carbonate ([place] Carbonate) 300 Mg Cap 300 MG PO QAM, CAP [place] Carbonate ([place] Carbonate) 300 Mg Tab 600 MG PO HS, TAB Omeprazole (Prilosec) 20 Mg Capcr 20 MG PO DAILY, CAP Quetiapine Fumarate (Seroquel) 25 Mg Tab 25 MG PO HS, TAB Sertraline (Zoloft) 100 Mg Tab 150 MG PO QAM, TAB Discontinued Medications: Clonazepam (Klonopin) 0.5 Mg Tab 1.5 MG PO AMPM, TAB Admission Information HPI (per Admitting provider): History obtained from patient's family and records. Unable to obtain history from patient secondary to sedated state. Medical history significant for mood disorder, reflux, IBS, ongoing tobacco abuse. Patient and her had some guests at home today. After friends left, spouse noted the patient being depressed. Patient's later got a text message from the patient stating "I love you very much. You're the best I could ever ask for." found the patient on the bathtub with several pill bottles (Sertraline, [place], Seroquel, and Clonazepam w/ only the Clonazepam bottle open with tablets on the floor.) Patient noted to be groggy, staggering around as per . Upon EMS arrival, the patient noted to unresponsive. At the Emergency Room, O2 sats noted to be in the 80s. Systolic blood pressure initially low. IV fluids started followed by Levophed. Levophed stopped after SBP shot up to the 170s post intubation. . Physical Exam (per Admitting): VITAL SIGNS: Initially blood pressure noted to be 69/40, later 109/54. Pulse rate 103, later 93. RR 16, temperature 35.3. O2 Sats initially 88 on room air, later 100 on 50%. GENERAL: Obese, sedated. SKIN: Normal color, warm. HEENT: [place] palpebral conjunctivae. No ptosis. ETube in place. NECK: Short, supple. CHEST: Decreased effort. No tenderness. HEART: RRR. No murmur. ABDOMEN: Some distention, non tender. EXTREMITIES: min LE edema, no tenderness. No other gross deformities NEUROLOGIC: Sedated. Pupils ERTL, no facial asymmetry. . Hospital Course POLYSUBSTANCE OVERDOSE Apparently ingested unknown quantity of clonazepam. Uncertain whether or not she ingested other meds (reportedly there were unopened bottles of lithium and Seroquel). Ethanol level was 166. Urine tox screen negative. [place] 0.6. Serum salicylates and acetaminophen not detectable. Hypotensive and hypoxic in ED. Required endotracheal intubation. BP improved with fluid resuscitation and norepinephrine. No arrhythmias or seizures. RESPIRATORY Intubated in ED for airway protection and hypoxia. Weaned and extubated. PULMONARY DENSITIES Chest x-ray at time of admission showed bibasilar densities. At risk for aspiration. No witnessed emesis. No fever. Procalcitonin < 0.05. PA and lateral films today showed improvement of bibasilar densities. Occasional cough, but lungs clear. Oxygenating well- 97-100% on RA. Slightly elevated WBC count nonspecific. No apparent indication for antibiotics at this time. Incentive spirometry. Reconsider need for antibiotics if pt becomes febrile or pulmonary status worsens. GERD Continue PPI. TUMS PRN. NASAL MRSA COLONIZATION Nasal MRSA screen in ICU positive. No apparent indication for antibiotic therapy at this time. Contact precautions. SKIN LESIONS Shallow ulcers noted on lower extremities. Etiology uncertain; they did not appear to be infected and no need for antibiotics at this time. Follow-up with PCP or Dermatology if they do not heal or if new lesions occur. DEPRESSION / SUICIDE ATTEMPT Psychiatry consulted. GI PROPHYLAXIS Received IV pantoprazole while acutely ill. VTE PROPHYLAXIS Received SQ enoxaparin. Ambulate. DISPOSITION Medically stable for discharge to home or behavioral health unit. Inpatient psychiatric care recommended by Behavioral Health Team. Patient agrees to voluntary admission to Behavioral Health Unit at [facility]. Family Medicine follow-up with Dr. Zepeda. . Total time spent on discharge = 35 min. This includes examination of the patient, discharge planning, medication reconciliation, and communication with other providers. . Discharge Instructions Discharge Instructions Date of Service Mar 25, 2018. Admission Reason for Admission: drug overdose . Discharge Discharge Diagnosis / Problem: drug overdose Discharge Goals Goal(s): Therapeutic intervention Activity Recommendations Activity Limitations: resume your previous activity . Instructions / Follow-Up Instructions / Follow-Up APPOINTMENTS: Medical follow-up with Dr. Zepeda after discharge. OTHER INSTRUCTIONS: Continue to do breathing exercises (incentive spirometry) for a few more days- 10 repetitions, several times a day. Seek medical attention if ulcers on legs get worse, no not heal, or if new blisters develop. 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 This usually does not make people sick and usually does not have to be treated with antibiotics. Wash your hands regularly. Avoid contact with people that might have a weak immune system (cancer patients , the elderly,etc). Seek medical attention if you have: * temperature above 101 * chest pain, worsening cough, or trouble breathing * abdominal pain, nausea, vomiting * diarrhea, dark stools or bloody stools * any unanswered questions or concerns Call 911 if symptoms are severe. Please take good care of yourself. Chinedu Talbert . Current Hospital Diet Patient's current hospital diet: Regular Diet Discharge Diet Recommended Diet: Regular Diet Pending Studies Studies pending at discharge: no Medical Emergencies . Who to Call and When: Medical Emergencies: If at any time you feel your situation is an emergency, please call 911 immediately. . Non-Emergent Contact Non-Emergency issues call your: Primary Care Provider . . "Provider Documentation" section prepared by Chinedu Talbert. .
== END 2018-03-25 19:42 | disposition other institution (70) | DRG 917 ==
LOC: EDBD 02:58 → C.EDB 02:59 → C.MSICU 05:25 → ENRESERV 05:31 → C.MED 20:20
PROVIDERS: ADMIT Internal Medicine; ATTEND Hospitalist
DX: T42.4X2A Poisoning by benzodiazepines, intentional self-harm, initial encounter (principal); J96.01 Acute respiratory failure with hypoxia; F31.81 Bipolar II disorder; R45.851 Suicidal ideations; F12.90 Cannabis use, unspecified, uncomplicated; F10.129 Alcohol abuse with intoxication, unspecified; F17.200 Nicotine dependence, unspecified, uncomplicated; Z88.0 Allergy status to penicillin; F32.9 Major depressive disorder, single episode, unspecified; Z91.14 Patient's other noncompliance with medication regimen; E66.9 Obesity, unspecified; Z68.39 Body mass index [BMI] 39.0-39.9, adult; I95.9 Hypotension, unspecified; K21.9 Gastro-esophageal reflux disease without esophagitis

== ENCOUNTER 2018-03-25 15:41 | Inpatient (IN) | payer OTHER ==
[~2018-03-25] VITALS: Ht 174 cm; Wt 118.7 kg
[~2018-03-25 15:41] MED LIST changes: +DEXA4INJ32 TOP; +ERGO500037 PO; +KLN/5 PO; +LITH300T2 PO; +LTHSR/300 PO; +QUET1TAB30 PO; +SERT-234 PO
[2018-03-25] MEDS ORDERED: CALC500C50 PO (18:01)
[2018-03-25] MEDS ORDERED: ALUMINUM/MAGNESIUM SUSP 30 ML UDC PO PRN (20:15)
[2018-03-25] MEDS ORDERED: ACETAMINOPHEN 325 MG TAB PO PRN (20:15)
[2018-03-25] MEDS ORDERED: CALCIUM CARBONATE 500 MG CHEWABLE PO PRN (20:15)
[2018-03-25] MEDS ORDERED: BISMUTH SUBSALICYLATE PER ML OMNICELL CHARGE PO PRN (20:15)
[2018-03-25] MEDS ORDERED: MAGNESIUM HYDROXIDE SUSP 30 ML UDC PO PRN (20:15)
[2018-03-25] MEDS ORDERED: SODIUM CHLORIDE 0.65% NA SOLN 45 ML (OCEAN) PRN (20:15)
[2018-03-25] MEDS ORDERED: hydrOXYzine HCL 25 MG TAB PO PRN (20:15)
[2018-03-25 20:25] VITALS: BP 143/107; PULSE 85; TEMP 37; Ht 174 cm; Wt 118.7 kg
[2018-03-25] MEDS: LITHIUM CARBONATE 300 MG TAB PO SCH (21:26)
[2018-03-25] MEDS ORDERED: QUETIAPINE FUMARATE 25 MG TAB PO PRN (22:00)
[2018-03-25] MEDS ORDERED: QUETIAPINE FUMARATE 25 MG TAB PO SCH (22:00)
[2018-03-26 07:02] VITALS: BP_SYST 114; BP_SYST 119; BP_DIAS 76; BP_DIAS 78; PULSE 80; PULSE 96; TEMP 36.4
[2018-03-26] MEDS: PANTOprazole SOD 40 MG TAB PO SCH (07:22)
[2018-03-26] MEDS: SERTRALINE HCL 100 MG TAB PO SCH (08:45)
[2018-03-26] MEDS: LITHIUM CARBONATE 300 MG TAB PO SCH ×2 (08:45→21:30)
[2018-03-26] MEDS ORDERED: FENTANYL CITRATE INJ 50 MCG/1 ML 2 ML VIAL IV ONE (09:35)
[2018-03-26] MEDS ORDERED: SUCCINYLCHOLINE CHLORIDE 20 MG/ML 10 ML VIAL IV ONE (09:35)
[2018-03-26] MEDS ORDERED: MIDAZOLAM HCL 5 MG/ML 1 ML VIAL IV ONE (09:35)
--- NOTE | 2018-03-26 11:49 | Psychiatric History & Physical ---
History Date of Service Mar 26, 2018. Identifying Data Cheryl Austin is a 22-year-old female admitted on Mar 25, 2018 at 15:41 who currently lives with . Cheryl Austin was admitted on a 201 voluntary commitment. Patient is admitted from transfer from the medical floor. The patient was originally brought to the ED by the ambulance. Information provided by the patient is considered to be reliable. Chief Complaint "I attempted suicide". History of Present Illness Cheryl is a 22 yr old female with h/o bipolar II d/o and anxiety d/o who medically admitted 03/24 at [facility] for suicide attempt following intentional overdose with intent to end her life. She was brought to the ED after being found by her in the bathtub, with her Rx med bottles scattered. She became unresponsive and EMS was called and transported pt. Pt was intubated in the ED due to respiratory failure and admitted to the ICU. , Shakeel, completed a 302 petitioning statement. on 03-21, pt had taken a knife to the bathroom with plan to cut wrists in a suicidal attempt but intervened prior to her causing herself any physial harm. Pt shared how was dx'd with bipolar II disorder about a year ago by Dr. Lan and has been rx'd lithium (300mg am and 600mg hs) and klonopin ( increased to 1.5mg bid) for most of the time. Seroquel was added about 4 months ago with about 2 months at 25mg hs and then raised to 50mg hs perhaps 2 months ago, Pt also takes melatonin Zoloft was added perhaps about 9 months and her dose was increased to prescribed 150mg a day at last appt about 5 weeks ago. However, pt stopped her zoloft and lithium and klonopin abruptly about 4-5 weeks ago and never got to the 150mg dose of zoloft. She endorsed taking seroquel 50mg hs and melatonin 10mg hs steadily during that time and resumed her other meds although at lower then rx'd doses only (aiming to titrate up her doses after some time. Her lithium was 300mg am only, klonopin 1mg am only, Zoloft 100mg am during the 5 days prior to the overdose. She denied any s/e to her medications. She does not think that seroquel is causing metabolic s/e and thinks her sugar and lipids have remained normal, with last reported checked about 6-7 months ago per pt. She is always fatigued and is not sure if her meds could be adding to her fatigue. Pt endorsed ongoing depressive symptoms that have been dealing with for over 10 years. First got depressed over her great grandmother during her childhood. She endorsed having hypomanic symptoms lasting a few days in a row that would occur every few months of increased goal directed activity, inflated sense of worth, expansive inflated mood, racing thoughts, pressured speech, grandiosity. She has experienced a sporadic time of these symptoms lasting 12- 20 hours or so while on her medications. She denied these symptoms as being descturtive or causing significant problems in her life but that were not contained and not reasonable and not stable and would crash into worse depression afterwards. She endorsed h/o depression being quite severe for a week or so at a time but that when less severe would still be having her blah, depressed mood, hard to get going, loss of interest, fatigue, insomnia, relatively low sense of worth. Her appetite is not impacted by her mood. She has chronic issues with insomnia since childhood and has taken melatonin quite consistently for over 10 years. It can take hours to fall asleep and has trouble staying asleep. Seroquel has alleviate this but as remained on the low dosage would take 1-2 hours to fall asleep and would still awaken but easy to fall back asleep. Pt endorsed a h/o SIB by cutting without SI from middle school to high school land last did this about 4 years ago. She denied any other h/o SIB. She denied other suicidal attempts. She denied h/o physical aggressive behaviors in past year and prior. She endorsed h/o OCD symptoms involving cleaning that flares up sporadically during times of stress with a contamination related trigger that appears to be independent of manic processes. She endorsed a h/o panic attacks and tendency towards anxiety that tends to be there and causing her to have nausea and occasionally brings out vomiting if anxiety is severe enough. She indicated that Klonopin did not seem to alleviate her anxiety that well, but thinks she might be more anxious as not on klonopin currently or during that month of not taking it recently. She denied any h/o psychotic features. She endorsed feeling worse/rough in vague ways as abruptly stopped her meds including klonopin but had a hard time clarifying what felt worse, she seemed to have some mild tremors in week of stopping the meds. She denied any h/o sz's or black outs besides the black out tied to her OD. She does not know how much nor what exactly she took in her OD. She has been 2 months to her with being engaged for 2 years and together for 8 years She reports that she felt her biological father never had any interest in being a part of her life. She was adopted by the biological father of her half siblings and felt that he was on t he strict side and they reacted to each other 's behaviors but that their relationship has improved in the past few years. She reports always being close to her mother. She drinks alcohol 1-2 times a week, usually 1-2 drinks but can have up to 5 drinks, she tends to drink less often and amounts if feeling more depressed. She uses cannabis a few times a year, and finds it calming, 1 cig 2-3 times a week with finding it alleviating her anxiety when smokes. Denied daily smoking. denied other substance concerns Vit D3 deficency and not been taking the vit D 3 weekly dose much at all for some time. 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 klonopin as above Past Medical/Surgical History History of Concussion/Seizure: No (1) Injury of ankle, right (2) Vitamin D deficiency (3) GERD (gastroesophageal reflux disease) Allergies Allergies: Coded Allergies: Penicillins (Unverified Allergy, Unknown, FAMILY ALLERGY, 08/04/17) Home Medications Scheduled Ergocalciferol (Vitamin D 32095 Unit), 50,000 UNIT PO WK [place] Carbonate ([place] Carbonate), 300 MG PO QAM [place] Carbonate ([place] Carbonate), 600 MG PO HS Omeprazole (Prilosec), 20 MG PO DAILY Quetiapine Fumarate (Seroquel), 25 MG PO HS Sertraline (Zoloft), 150 MG PO QAM Scheduled PRN Calcium Carbonate (Antacid) (Tums), 500 MG PO for Indigestion Family History History of Suicide: Yes (great aunt maternal) History of Substance Abuse: Yes (biological father drugs) Psychiatric History: Yes (great uncles maternal bipolar ) Alcohol Use Alcohol Use In Past 12 Months: Yes ("A drink or two, maybe once a month".) AUDIT Total Score: 6 alcohol 1-2 times a week, 1-5 for range, drinks less when more depressed per pt , pt does not view self as having a problem with alcohol. of note was on klonopin for about a year and dose raised to 1.5mg bid with above drinking Smoking Use Smoking Status: Current Some Day Smoker (1 cig about 2-3 times a week ) Substance History cannabis once every few months Personal History Lives in: [place], [place] with Education: graduated from high school Relationship History: ( 2 months ago, engaged 2 years, been with for about 8 years in total) Children: none Spiritual Affiliation: spiritual, not christianity Psychological Trauma History: Other ( of great grandmother in her childhood; bio-father not wanting to be part of her life) Additional Comments: financial stressors as per HPI Review of Systems Constitutional: see HPI (denied other) Eyes: denies: no symptoms, as stated in HPI, eye pain, tearing, itching, redness, discharge, double vision, visual changes, blurred vision, photophobia, other ENT: denies: no symptoms reported, see HPI, ear pain, ear discharge, loss of hearing, tinnitus, nasal pain, nasal congestion, rhinorrhea, epistaxis, sore throat, stidor, throat swelling, mouth pain, mouth swelling, dental pain, gum swelling, other Cardiovascular: denies: no symptoms reported, see HPI, chest pain, chest tightness, chest pressure, diaphoresis, palpitations, syncope, other Respiratory: reports: other (recently intubated for OD ) Gastrointestinal: other (when actuely severely anxious does get nasuated ) Genitourinary - Female: reports: no symptoms Musculoskeletal: other (R ankle injury that has not fully healed) Integumentary: lesions (L leg - pt wonders if reaction from a topcial steroid med being used during PT) Neurologic: denies: no symptoms, see HPI, headache, numbness, paresthesias, pre -existing deficit, seizure, tingling, tremors, general weakness, tics, focal weakness, vertigo, lethargy, memory loss, dizziness, other Endocrine: denies: no symptoms, as stated in HPI, cold intolerance, heat intolerance, hair changes, goiter, polydipsia, polyuria, skin changes, other Hematologic / Lymphatic: denies: no symptoms, as stated in HPI, abnormal clotting, adenopathy, anemia, easy bleeding, easy bruising, gums bleeding, petechiae, other Examination Physical Examination A physical exam was performed on the medical floor prior to admission to the unit by Dr. Goodman. I accept that physical as correct/medical clearance for the inpatient physical exam. Vital Signs Vital Signs Past 12 Hours Date Time Temp Pulse Resp B/P (MAP) Pulse Ox O2 Delivery O2 Flow Rate FiO2 03/26/18 07:02 36.4 80 16 114/76 96 119/78 Mental Examination During interview pt is: alert and oriented, cooperative Appearance: appropriately dressed Eye contact is: good Motor behavior is: steady gait & station, no abnormal motor movements Speech: normal in rate, rhythm & volume Affect: mood congruent Mood is: depressed Thought process: goal directed, linear, logical, clear, coherent Thought content: other (embrassed over OD and her self stopping her med ) Suicidal thought are: denied (at time of this assesment, endorsed had SI and suicide attempt leading to hospitalizatio) Homicidal thoughts are: denied Hallucinations: denies auditory, denies visual Cognition: memory grossly intact, attention grossly intact Intelligence estimated to be: average Insight: impaired Judgement: impaired Impression / Recommendations Impression 22 yr old female with h/o Bipolar II d/o and anxiety d/o who sees Dr. Bates for psychiatry and Michael Alvarez for psychotherapy appt who attempted suicide by intentional OD with intent to leading to medical admission/intubation. She is admitted on a 201 voluntary commitment for psychiatric care after being medically cleared as of evening of 03/25. She had ceased most of her meds abruptly about 4-5 weeks ago. She had continued her melatonin 0mg hs and her seroquel 50mg hs despite stopping her Zoloft from 100mg (was due to raise t o150mg am when ceased med) ; lithium from 300mg am and 600mg within therapeutic range per pt with freq lab checks per pt, and klonopin 1.55mg bid. Pt resumed her stopped meds at lower then rx'd doses 5 days prior to her OD ( Zoloft 100mg qd, lithium 300mg qam, klonopin 1mg am). Klonopin was stopped during medical admission and not resumed at discharge. Pt struggles with insomnia that low dose seroquel first helped a lot but insomnia worsening as more time on seroquel, perhaps leslie with other meds not present. Depression only partially alleviated and ongoing daily depressive symptoms still quite bothersome even when on medications per pt. Pt hypomanic symptoms improved on medications but can have up to 1 day of hypomanic symptoms sporadically even when on meds. ankle injury (r) lead her to stopped working and still being addressed 2 months ago, engaged 2 years, together for 8 years Vit D deficiency and not been taking her weekly doses of Vit D3 much at all and levels still quite low per pt Inventory Assets Strengths: seeking treatment, wanting support and open to medications and therapy, willing to engage with clinicians and family Needs: medication adjustment, addressing medication compliance Risk Factors Assessment : Yes Mental Health Diagnoses: Yes Previous psychiatric stay: No Protective Factors Assessment Good rapport with provider: Yes Recommendations (1) Bipolar 2 disorder -q15 minute safety checks for SI -coordinate care/presentation with outpt psychiatrist and outpt therapist ( with appt was scheduled for 03/25, needs to be rescheduled) -inpt group/individual/milieu therapy -after review of r/b/a raised seroquel to 100mg hs to more fully alleviate bipolar mood symptoms, while aiming to improve insomnia and anxiety and oCD symptoms more fullly off label -raised zoloft [id number] qday to more fully treat anxiety/ocd/depression while monitoring for adding to mood lability from this med and dose -klonopin has been stopped after self stopping abruptly and resuming lower dose recently and then stopped at time of discharge from medical admission, will stop this med -vistaril prn 25mg anxiety/50mg insomnia with potential for this med to be converted to ongoing med if alleviates anxiety in effective manner -at pt preference holding melatonin for now given its limited effectiveness and raise of seroquel -fasting labs for being on seroquel, appears to have been last checked early 2018 with pt reporting nl values -family meeting to be scheduled, pt seeking and parents to attend (2) Injury of ankle, right follow up with outpt providers and PT as appropriate (3) GERD (gastroesophageal reflux disease) continue outpt med (4) Vitamin D deficiency continue weekly VIt D3 50,000 IU asince not taken in extended time will re- start for 03/27 CPT Code Initial Hospital Care: [id number]
[2018-03-26] MEDS: QUETIAPINE FUMARATE 100 MG TAB PO SCH (21:31)
[2018-03-27 06:56] VITALS: BP_SYST 121; BP_SYST 123; BP_DIAS 78; BP_DIAS 80; PULSE 87; PULSE 91; TEMP 36.4
[2018-03-27] MEDS: PANTOprazole SOD 40 MG TAB PO SCH (07:02)
[2018-03-27] MEDS: LITHIUM CARBONATE 300 MG TAB PO SCH ×2 (08:15→21:56)
[2018-03-27] MEDS: SERTRALINE HCL 100 MG TAB PO SCH (08:15)
[2018-03-27] MEDS ORDERED: FLUOXETINE HCL 10 MG CAP PO ONE (12:15)
--- NOTE | 2018-03-27 13:36 | Psychiatric Progress Notes ---
Progress Note Date of Service Mar 27, 2018. Chief Complaint "I don't think zoloft is actually works for me". Subjective Patient was seen & assessed interval progress reviewed with Treatment Team. Pt had family meeting with her and then a family with her and mother and step father this morning. She felt the meetings were productive .She was quite anxious about the meeting with her mother and step father prior to the meeting and used part of the meeting with her to help prepare for that second meeting. She asserted herself in the meeting with her mother and step father requesting them learn more about bipolar d/o and warning ides and seeking to utilize them as more of a resource and source of support in terms of her mood concerns. She was weary that her mother would want to take over control of her treatment plan/after care plans once utilizing her as a resource and pt was pleasantly surprise that mother was willing to be supportive but not aiming to take over such things and that would be her main point of person beyond herself to address her aftercare concerns. Pt is having fluctuating levels of anxiety, flaring up to severe levels from triggering stimuli, including obtaining beadwork this morning and preparing for the family meeting. She settles down but is at moderate levels of anxiety frequently as well. She has perry reviewing her time on zoloft and klonopin and how she found Klonopin to not have been helpful (would not take Klonopin consistently due to that) and is also thinking that Zoloft does not have any clear alleviating benefits despite having significant time at 100mg a day and thus is weary to be on it at 150mg a day. She is hoping to change to another antidepressant med that can target depression and anxiety. She shared how she felt the Seroquel at 100mg made her tired in about 40 or so minute after taking it but had a hard time falling asleep last night, She thinks this is because is not sharing a bed with her while in the hospital. She endorsed feeling tired today but thinks its from limited amount of sleep last night and denied feeling groggy or more sedate d then tends to in general. She is weary of raising the Seroquel just yet, wanting at least a bit of time at 100mg hs dose. She denied other s/e. She shared with staff and in groups how she is impulsive and how can act on things without thinking through the consequences. She denied SI to director underwriter sales. She is comfortable on the unit and is aiming for a short stay , seeking to leave in a couple days. She is without psychotic features, no HI. she ahs been pleasant and engaging well with peers and staff and attending groups and participating. Staff spoke to her therapist who indicating they are working on her being more assertive and building up her sense of herself while addressing her avoidant and dependent traits . Sleep Information Total Hours of Sleep: 7.75 Meal Information Percent of Breakfast Consumed: 90 Percent of Lunch Consumed: 100 Percent of Dinner Consumed: 100 Mental Status Exam During interview pt is: alert and oriented, cooperative Appearance: appropriately dressed Eye contact is: good Motor behavior is: steady gait & station, no abnormal motor movements Speech: normal in rate, rhythm & volume Affect: mood congruent Mood is: depressed, anxious Thought process: goal directed, linear, logical, clear, coherent Thought content: other (embrassed over OD and her self stopping her med ) Suicidal thought are: denied Homicidal thoughts are: denied Hallucinations: denies auditory, denies visual Cognition: memory grossly intact, attention grossly intact Intelligence estimated to be: average Insight: impaired Judgement: impaired Impression 22 yr old female with h/o Bipolar II d/o and anxiety d/o who sees Dr. Bates for psychiatry and Michael Funez for psychotherapy appt who attempted suicide by intentional OD with intent to leading to medical admission/intubation. She is admitted on a 201 voluntary commitment for psychiatric care after being medically cleared as of evening of 03/25. She had ceased most of her meds abruptly about 4-5 weeks ago. She had continued her melatonin 0mg hs and her seroquel 50mg hs despite stopping her Zoloft from 100mg (was due to raise t o150mg am when ceased med) ; lithium from 300mg am and 600mg within therapeutic range per pt with freq lab checks per pt, and klonopin 1.55mg bid. Pt resumed her stopped meds at lower then rx'd doses 5 days prior to her OD ( Zoloft 100mg qd, lithium 300mg qam, klonopin 1mg am). Klonopin was stopped during medical admission and not resumed at discharge. Pt struggles with insomnia that low dose seroquel first helped a lot but insomnia worsening as more time on seroquel, perhaps leslie with other meds not present. Depression only partially alleviated and ongoing daily depressive symptoms still quite bothersome even when on medications per pt. Pt hypomanic symptoms improved on medications but can have up to 1 day of hypomanic symptoms sporadically even when on meds. ankle injury (r) lead her to stopped working and still being addressed 2 months ago, engaged 2 years, together for 8 years Vit D deficiency and not been taking her weekly doses of Vit D3 much at all and levels still quite low per pt Plan (1) Bipolar 2 disorder 03/26- -q15 minute safety checks for SI -coordinate care/presentation with outpt psychiatrist and outpt therapist ( with appt was scheduled for 03/25, needs to be rescheduled) -inpt group/individual/milieu therapy -after review of r/b/a raised seroquel to 100mg hs to more fully alleviate bipolar mood symptoms, while aiming to improve insomnia and anxiety and oCD symptoms more fullly off label -raised zoloft [id number] qday to more fully treat anxiety/ocd/depression while monitoring for adding to mood lability from this med and dose -klonopin has been stopped after self stopping abruptly and resuming lower dose recently and then stopped at time of discharge from medical admission, will stop this med -vistaril prn 25mg anxiety/50mg insomnia with potential for this med to be converted to ongoing med if alleviates anxiety in effective manner -at pt preference holding melatonin for now given its limited effectiveness and raise of seroquel -fasting labs for being on seroquel, appears to have been last checked early 2017 with pt reporting nl values -family meeting to be scheduled, pt seeking and parents to attend 03/27 - stop zoloft start prozac, first dose 10mg today then 20mg qday starting targeting depression, anxiety, ocd features continue lithium unchanged continue seroquel at 100mg hs for now reviewed fasting labwork, total cholesterol 201, rest nl reviewed family meeting, director underwriter sales provided supportive therapy re: asserting self and using support of loved ones more proactively and directly safety plan being worked on (2) Injury of ankle, right follow up with outpt providers and PT as appropriate (3) GERD (gastroesophageal reflux disease) continue outpt med (4) Vitamin D deficiency continue weekly VIt D3 50,000 IU asince not taken in extended time will re- start for 03/27 Discharge / Aftercare Planning Primary Care Physician: Name: Dr Mae Rubi Anthon [facility] Notes[facility] [address] [facility] [place] [address] Psychiatrist: Name: Dr Riky Ramires Date of Appointment: Apr 02, 2018 Time of Appointment: 8:30 Appointment Notes: [address] [place] [address] Therapist: Name: Michael Funez [facility] - [facility] Appointment Notes: [address] [facility] [place] [address] Log Cutter: Name: Emely Other: Name of Appointment #1: Dr Riky Ramires Date of Appointment #1: Apr 04, 2018 Time of Appointment #1: 3:30 Visit Code E&M Code: 46070 Therapy Code: 01733 - 16+ minutes - addressing using resources and triggers of anxiety Inventory Assets Strengths: seeking treatment, wanting support and open to medications and therapy, willing to engage with clinicians and family Needs: medication adjustment, addressing medication compliance Risk Factors Assessment : Yes Mental Health Diagnoses: Yes Previous psychiatric stay: No Protective Factors Assessment Good rapport with provider: Yes Data Vital Signs Last 24 Hrs: Date Time Temp Pulse Resp B/P (MAP) Pulse Ox O2 Delivery O2 Flow Rate FiO2 03/27/18 06:56 36.4 87 16 123/80 91 121/78 Meds Administered Last 24 Hrs: Meds Administered (Past 24Hrs) Medications (Trade) Dose Ordered Sig/Gina Route Start Time Stop Time Status Last Admin Dose Admin [place] Carbonate ([place] Carbonate Tab) 600 mg HS PO 03/25/18 22:00 04/24/18 21:59 03/26/18 21:30 600 MG Quetiapine Fumarate (seroQUEL TAB) 25 mg HS PO 03/25/18 22:00 03/26/18 10:07 DC 03/25/18 21:26 25 MG Sertraline HCl (Zoloft Tab) 150 mg QAM PO 03/26/18 09:00 03/27/18 11:48 DC 03/27/18 08:15 150 MG [place] Carbonate ([place] Carbonate Tab) 300 mg QAM PO 03/26/18 09:00 04/25/18 08:59 03/27/18 08:15 300 MG Pantoprazole Sodium (Protonix Tab) 40 mg DAILY PO 03/26/18 09:00 04/25/18 08:59 03/27/18 07:02 40 MG Quetiapine Fumarate (seroQUEL TAB) 25 mg HS PRN PO 03/25/18 22:00 04/24/18 21:59 03/25/18 22:14 25 MG Quetiapine Fumarate (seroQUEL TAB) 100 mg HS PO 03/26/18 22:00 04/24/18 21:59 03/26/18 21:31 100 MG Fluoxetine HCl (Prozac Cap) 10 mg NOW ONCE PO 03/27/18 12:15 03/27/18 12:16 DC 03/27/18 12:53 10 MG Lab Results Last 24 Hrs: Last 24 Hours Test 03/27/18 07:24 Fasting Glucose 93 mg/dl Triglycerides Level 148 mg/dl Cholesterol Level 201 mg/dl HDL Cholesterol 46 mg/dl LDL Cholesterol, Calculated 125 mg/dl VLDL Cholesterol, Calculated 30 mg/dl Cholesterol/HDL Ratio 4.4
[2018-03-27] MEDS ORDERED: ERGOCALCIFEROL 50,000 INTER.UNIT CAP PO SCH (17:00)
[2018-03-27 17:57] VITALS: BP 138/99; PULSE 109; TEMP 37.3
[2018-03-27] MEDS: hydrOXYzine HCL 25 MG TAB PO PRN (18:08)
[2018-03-27] MEDS ORDERED: KLN/5 PO (18:21)
[2018-03-27 18:40] VITALS: BP 131/83; PULSE 101; TEMP 36.9
[2018-03-27] MEDS: QUETIAPINE FUMARATE 100 MG TAB PO SCH (21:56)
[2018-03-28 06:59] VITALS: BP_SYST 113; BP_SYST 117; BP_DIAS 75; BP_DIAS 78; PULSE 75; PULSE 83; TEMP 36.5
[2018-03-28] MEDS: PANTOprazole SOD 40 MG TAB PO SCH (07:06)
[2018-03-28] MEDS: LITHIUM CARBONATE 300 MG TAB PO SCH ×2 (08:35→22:30)
[2018-03-28] MEDS: FLUOXETINE HCL 20 MG CAP PO SCH (08:35)
--- NOTE | 2018-03-28 10:21 | Psychiatric Progress Notes ---
Progress Note Date of Service Mar 28, 2018. Chief Complaint "anxious about my mother taking over my plans for structure after discharge". Subjective Patient was seen & assessed interval progress reviewed with nursing. Pt shared how got quite anxious and flushed and jittery around dinner time yesterday. She was weary that she might be withdrawing from her prior Klonopin concerns. However vistaril did settle her down significantly, although some fatigue did occur after the vistaril dose. Her Bp and pulse which was elevated some during time of her high anxiety normalized back and are normal this morning. She has some milder jitteriness this morning which is different for her then her nl anxiety. This could be some akathisia from starting prozac. She feel asleep within 30 minutes of trying to fall asleep per pt and couple brief awakenings last night , discomfort with the bed was her main concern in terms of sleep last night. She has some ongoing fatigue but is less fatigued then prior to being in the hospital. She felt a little groggy in the first hour of being awake but in a tolerable manner. She noticed increased appetite the past couple days, which could be a s/e to her medications, particularly the raise of her seroquel. She is preferring to continue medications as current taking and to have acces to prn vistairl for after discharge. She is nervous about discharge around feeling that mother might be wanting to structure pts schedule/activities and pt feels needs to be addressed prior to her discharge to help pt not feel to overwhelmed and stressed in the first days after discharge. During the therapy portion of this assessment we addressed pt's own goals around structure and activities and how she wants to utilize her as her main person of contact of checking with her follow through on this and to set up some boundaries iwht her mother around this. We process her avoidance of doing this directly and her tendency to use her as go between and to see if pt can more directly address her boundaries with her mother with support from and staff. Pt expressed openness and willingness to do so. She denied SI or HI. Her anxiety is a 4 out of 10 of severity this morning (with 10 being most severe) her depression is a 7 out of 10 for severity this morning with 10 being most severe. Review of Systems Constitutional: + fatigue (improving some), + problem reported (increased appetite) Respiratory: No cough, No sputum, No wheezing, No shortness of breath, No dyspnea on exertion, No dyspnea at rest, No hemoptysis, No problem reported Cardiovascular: No chest pain, No orthopnea, No PND, No edema, No claudication , No palpitations, No problem reported Abdomen: No pain, No nausea, No vomiting, No diarrhea, No constipation, No GI bleeding, No problem reported Psychiatric: + depression symptoms, + anxiety, + insomnia (improved) Integumentary: + problem reported (lessions on skin Leg improving, rash by armpits improving) Sleep Information Total Hours of Sleep: 7.50 Meal Information Percent of Breakfast Consumed: 90 Percent of Lunch Consumed: 100 Percent of Dinner Consumed: 100 Mental Status Exam During interview pt is: alert and oriented, cooperative Appearance: appropriately dressed Eye contact is: good Motor behavior is: steady gait & station, no abnormal motor movements Speech: normal in rate, rhythm & volume Affect: mood congruent, other (anxiety lessened some, not as depressed in affect as earlier in treatment course) Mood is: depressed, anxious Thought process: goal directed, linear, logical, clear, coherent Thought content: other (some likely disortations tied to expectations/ boundaries of mother ) Suicidal thought are: denied Homicidal thoughts are: denied Hallucinations: denies auditory, denies visual Cognition: memory grossly intact, attention grossly intact Intelligence estimated to be: average Insight: impaired Judgement: impaired Impression 22 yr old female with h/o Bipolar II d/o and anxiety d/o who sees Dr. Bates for psychiatry and Michael Funez for psychotherapy appt who attempted suicide by intentional OD with intent to leading to medical admission/intubation. She is admitted on a 201 voluntary commitment for psychiatric care after being medically cleared as of evening of 03/25. She had ceased most of her meds abruptly about 4-5 weeks ago. She had continued her melatonin 0mg hs and her seroquel 50mg hs despite stopping her Zoloft from 100mg (was due to raise t o150mg am when ceased med) ; lithium from 300mg am and 600mg within therapeutic range per pt with freq lab checks per pt, and klonopin 1.55mg bid. Pt resumed her stopped meds at lower then rx'd doses 5 days prior to her OD ( Zoloft 100mg qd, lithium 300mg qam, klonopin 1mg am). Klonopin was stopped during medical admission and not resumed at discharge. Pt struggles with insomnia that low dose seroquel first helped a lot but insomnia worsening as more time on seroquel, perhaps leslie with other meds not present. Depression only partially alleviated and ongoing daily depressive symptoms still quite bothersome even when on medications per pt. Pt hypomanic symptoms improved on medications but can have up to 1 day of hypomanic symptoms sporadically even when on meds. ankle injury (r) lead her to stopped working and still being addressed 2 months ago, engaged 2 years, together for 8 years Vit D deficiency and not been taking her weekly doses of Vit D3 much at all and levels still quite low per pt Plan (1) Bipolar 2 disorder 03/26- -q15 minute safety checks for SI -coordinate care/presentation with outpt psychiatrist and outpt therapist ( with appt was scheduled for 03/25, needs to be rescheduled) -inpt group/individual/milieu therapy -after review of r/b/a raised seroquel to 100mg hs to more fully alleviate bipolar mood symptoms, while aiming to improve insomnia and anxiety and oCD symptoms more fullly off label -raised zoloft [id number] qday to more fully treat anxiety/ocd/depression while monitoring for adding to mood lability from this med and dose -klonopin has been stopped after self stopping abruptly and resuming lower dose recently and then stopped at time of discharge from medical admission, will stop this med -vistaril prn 25mg anxiety/50mg insomnia with potential for this med to be converted to ongoing med if alleviates anxiety in effective manner -at pt preference holding melatonin for now given its limited effectiveness and raise of seroquel -fasting labs for being on seroquel, appears to have been last checked early 2017 with pt reporting nl values -family meeting to be scheduled, pt seeking and parents to attend 03/27 - stop zoloft start prozac, first dose 10mg today then 20mg qday starting targeting depression, anxiety, ocd features continue lithium unchanged continue seroquel at 100mg hs for now reviewed fasting labwork, total cholesterol 201, rest nl reviewed family meeting, literary writer provided supportive therapy re: asserting self and using support of loved ones more proactively and directly safety plan being worked on 03/28 - continue medications unchanged - due for lithium level 03/30 -vistaril prn med encouraged to be used for acute severe anxiety and can be continued as an outpt -monitor for s/e of her current medications leslie change to prozac -assisting pt on assertiveness, boundary setting with mother, working on her own structure and using as a primary support (2) Injury of ankle, right follow up with outpt providers and PT as appropriate (3) GERD (gastroesophageal reflux disease) continue outpt med (4) Vitamin D deficiency continue weekly VIt D3 50,000 IU asince not taken in extended time will re- start for 03/27 Discharge / Aftercare Planning Primary Care Physician: Name: Dr Mae Rubi Hitchcock Date of Appointment: Apr 09, 2018 Time of Appointment: 10:45am Appointment Notes: [address] [place] [id number] Psychiatrist: Name: Dr Riky Ramires Date of Appointment: Apr 02, 2018 Time of Appointment: 8:30am Appointment Notes: .Apr 04 2018 ,2nd apointment at 3:30pm Therapist: Name: Michael Funez LCSW Date of Appointment: Apr 04, 2018 Time of Appointment: 1:00pm Appointment Notes: [address] [place] [id number] Networking Engineer: Name: . Other: Name of Appointment #1: Dr Riky Ramires Date of Appointment #1: Apr 04, 2018 Time of Appointment #1: 3:30 Visit Code E&M Code: 07212 Therapy Code: [id number], structure,assertiveness, working through avoidance Inventory Assets Strengths: seeking treatment, wanting support and open to medications and therapy, willing to engage with clinicians and family Needs: medication adjustment, addressing medication compliance Risk Factors Assessment : Yes Mental Health Diagnoses: Yes Previous psychiatric stay: No Protective Factors Assessment Good rapport with provider: Yes Data Vital Signs Last 24 Hrs: Date Time Temp Pulse Resp B/P (MAP) Pulse Ox O2 Delivery O2 Flow Rate FiO2 03/28/18 06:59 36.5 75 16 113/75 83 117/78 03/27/18 18:40 36.9 101 16 131/83 03/27/18 17:57 37.3 109 18 138/99 Meds Administered Last 24 Hrs: Meds Administered (Past 24Hrs) Medications (Trade) Dose Ordered Sig/Gina Route Start Time Stop Time Status Last Admin Dose Admin Quetiapine Fumarate (seroQUEL TAB) 100 mg HS PO 03/26/18 22:00 04/24/18 21:59 03/27/18 21:56 100 MG Fluoxetine HCl (Prozac Cap) 10 mg NOW ONCE PO 03/27/18 12:15 03/27/18 12:16 DC 03/27/18 12:53 10 MG Fluoxetine HCl (Prozac Cap) 20 mg QAM PO 03/28/18 09:00 04/27/18 08:59 03/28/18 08:35 20 MG Ergocalciferol (Vitamin D Cap) 50,000 interunit Q7D PO 03/27/18 17:00 04/28/18 08:59 03/27/18 17:23 50,000 INTERUNIT
[2018-03-28] MEDS: hydrOXYzine HCL 25 MG TAB PO PRN (12:20)
[2018-03-28] MEDS ORDERED: QUETIAPINE FUMARATE 25 MG TAB PO SCH (22:00)
[2018-03-29 06:38] VITALS: BP_SYST 113; BP_SYST 117; BP_DIAS 79; BP_DIAS 83; PULSE 72; PULSE 88; TEMP 36.5
[2018-03-29] MEDS: PANTOprazole SOD 40 MG TAB PO SCH (07:20)
[2018-03-29] MEDS: LITHIUM CARBONATE 300 MG TAB PO SCH (08:18)
[2018-03-29] MEDS: FLUOXETINE HCL 20 MG CAP PO SCH (08:18)
[2018-03-29] MEDS ORDERED: ERGOCALCIFEROL 50,000 INTER.UNIT CAP PO SCH (09:00)
--- NOTE | 2018-03-29 09:54 | Discharge Instructions ---
Discharge Information Report Includes Report will include the: Discharge Instructions & Summary Admission Admission Date / Time: Mar 25, 2018 at 15:41 Reason for Admission: Bipolar 2 Disorder Discharge Discharge Diagnosis / Problem: Bipolar II Disorder Condition at Discharge: Good Discharge Goals Goal(s): Decrease discomfort, Improve function, Increase independence, Improve disease control, Learn about illness, Therapeutic intervention, Prevent Disease Progression Activity Recommendations Activity Limitations: resume your previous activity . Instructions / Follow-Up Instructions / Follow-Up . SPECIAL CARE INSTRUCTIONS: 1. Follow through with your scheduled aftercare appointments. If unable to keep an appointment, please call to reschedule. 2. Take your medication only as prescribed. Medication should not be changed or stopped without the approval of your doctor. In the event of worsening symptoms or concerns about side effects, contact your doctor immediately. 3. Utilize new healthy coping skills, anger management skills, and stress management skills learned during your hospitalization. Journal feelings and process them with a support person. Identify stressors or situations that may result in relapse, deterioration or inappropriate behaviors and develop a plan to deal with those issues. 4. If your coping skills are ineffective and you are in crisis, contact your outpatient providers for direction. If unable to reach your providers, please call the CAN HELP LINE AT or go to the closest Emergency Room. 5. Avoid alcohol and un-prescribed drugs. 6. You have been provided with the Mental Health Advance Directives Pamphlet for your review. AFTERCARE APPOINTMENTS: * Please call your insurance company prior to your scheduled appointment to confirm your aftercare providers are covered. Take your insurance information to your appointments. . Discharge / Aftercare Planning Primary Care Physician: Name: Dr Mae Rubi [place] Date of Appointment: Apr 09, 2018 Time of Appointment: 10:45am Appointment Notes: [address] [place] [address] Psychiatrist: Name: Dr Riky Ramires Date of Appointment: Apr 02, 2018 Time of Appointment: 8:30am Appointment Notes: .Apr 04 2018 ,2nd apointment at 3:30pm Therapist: Name Of Therapist: Michael Funez LCSW Date of Appointment: Apr 04, 2018 Time of Appointment: 1:00pm Appointment Comments: [address], [place] [address] [facility]: Name: . Other: Name of Appointment #1: Dr Riky Ramires Date of Appointment #1: Apr 04, 2018 Time of Appointment #1: 3:30 . Follow-Up Care Plan for Follow-Up Care: Pt's aftercare was reviewed and updated during this admission to allow for timely followup with psychiatric providers following discharge. Pt will be returning to their current psychiatrist for management of medications and will continue regular visits with her current therapist. Pt received lab order to complete [place] [facility] prior to her next appointment with her psychiatrist on 04/04. Lab slip provided to patient with discharge information. May complete 04/02 - 04/03. Pt instructed that it is to be a trough level, requiring that the labs be drawn prior to taking her morning dose of lithium. Current Hospital Diet Patient's current hospital diet: Regular Diet Discharge Diet Recommended Diet: Regular Diet Procedures Procedures Performed: No Lipid Panel Test 03/27/18 07:24 Range/Units Triglycerides Level 148 0-150 mg/dl Cholesterol Level 201 H 0-200 mg/dl HDL Cholesterol 46 mg/dl Cholesterol/HDL Ratio 4.4 LDL Cholesterol, Calculated 125 mg/dl Pending Studies Pending Studies at Discharge: No Medical Emergencies . Who to Call and When: Medical Emergencies: For questions or emergencies related to your hospital stay, please contact the Inpatient Behavioral Health Unit at [phone]. A construction site crossing guard is on-call 26/02 for the Behavioral Health Unit for emergencies At any time you feel your situation is an emergency, you may also call 911 immediately. . Non-Emergent Contact Non-Emergency issues call your: Primary Care Provider, Psychiatrist, Therapist Advance Directives Do You Have an Existing Mental: No Existing Living Will: No Existing Power of Taping Machine Operator: No Advance Directives Info Given: To Pt/S.O. Advance Directives Reason: Declines as Mental Health Visit. Discharge Summary Admission HPI Per the Admitting provider: Cheryl is a 22 yr old female with h/o bipolar II d/o and anxiety d/o who medically admitted 03/24 at [facility] for suicide attempt following intentional overdose with intent to end her life. She was brought to the ED after being found by her in the bathtub, with her Rx med bottles scattered. She became unresponsive and EMS was called and transported pt. Pt was intubated in the ED due to respiratory failure and admitted to the ICU. , Shakeel, completed a 302 petitioning statement. on 03-21, pt had taken a knife to the bathroom with plan to cut wrists in a suicidal attempt but intervened prior to her causing herself any physial harm. Pt shared how was dx'd with bipolar II disorder about a year ago by Dr. Lan and has been rx'd lithium (300mg am and 600mg hs) and klonopin ( increased to 1.5mg bid) for most of the time. Seroquel was added about 4 months ago with about 2 months at 25mg hs and then raised to 50mg hs perhaps 2 months ago, Pt also takes melatonin Zoloft was added perhaps about 9 months and her dose was increased to prescribed 150mg a day at last appt about 5 weeks ago. However, pt stopped her zoloft and lithium and klonopin abruptly about 4-5 weeks ago and never got to the 150mg dose of zoloft. She endorsed taking seroquel 50mg hs and melatonin 10mg hs steadily during that time and resumed her other meds although at lower then rx'd doses only (aiming to titrate up her doses after some time. Her lithium was 300mg am only, klonopin 1mg am only, Zoloft 100mg am during the 5 days prior to the overdose. She denied any s/e to her medications. She does not think that seroquel is causing metabolic s/e and thinks her sugar and lipids have remained normal, with last reported checked about 6-7 months ago per pt. She is always fatigued and is not sure if her meds could be adding to her fatigue. Pt endorsed ongoing depressive symptoms that have been dealing with for over 10 years. First got depressed over her great grandmother during her childhood. She endorsed having hypomanic symptoms lasting a few days in a row that would occur every few months of increased goal directed activity, inflated sense of worth, expansive inflated mood, racing thoughts, pressured speech, grandiosity. She has experienced a sporadic time of these symptoms lasting 12- 20 hours or so while on her medications. She denied these symptoms as being descturtive or causing significant problems in her life but that were not contained and not reasonable and not stable and would crash into worse depression afterwards. She endorsed h/o depression being quite severe for a week or so at a time but that when less severe would still be having her blah, depressed mood, hard to get going, loss of interest, fatigue, insomnia, relatively low sense of worth. Her appetite is not impacted by her mood. She has chronic issues with insomnia since childhood and has taken melatonin quite consistently for over 10 years. It can take hours to fall asleep and has trouble staying asleep. Seroquel has alleviate this but as remained on the low dosage would take 1-2 hours to fall asleep and would still awaken but easy to fall back asleep. Pt endorsed a h/o SIB by cutting without SI from middle school to high school land last did this about 4 years ago. She denied any other h/o SIB. She denied other suicidal attempts. She denied h/o physical aggressive behaviors in past year and prior. She endorsed h/o OCD symptoms involving cleaning that flares up sporadically during times of stress with a contamination related trigger that appears to be independent of manic processes. She endorsed a h/o panic attacks and tendency towards anxiety that tends to be there and causing her to have nausea and occasionally brings out vomiting if anxiety is severe enough. She indicated that Klonopin did not seem to alleviate her anxiety that well, but thinks she might be more anxious as not on klonopin currently or during that month of not taking it recently. She denied any h/o psychotic features. She endorsed feeling worse/rough in vague ways as abruptly stopped her meds including klonopin but had a hard time clarifying what felt worse, she seemed to have some mild tremors in week of stopping the meds. She denied any h/o sz's or black outs besides the black out tied to her OD. She does not know how much nor what exactly she took in her OD. She has been 2 months to her with being engaged for 2 years and together for 8 years She reports that she felt her biological father never had any interest in being a part of her life. She was adopted by the biological father of her half siblings and felt that he was on t he strict side and they reacted to each other 's behaviors but that their relationship has improved in the past few years. She reports always being close to her mother. She drinks alcohol 1-2 times a week, usually 1-2 drinks but can have up to 5 drinks, she tends to drink less often and amounts if feeling more depressed. She uses cannabis a few times a year, and finds it calming, 1 cig 2-3 times a week with finding it alleviating her anxiety when smokes. Denied daily smoking. denied other substance concerns Vit D3 deficency and not been taking the vit D 3 weekly dose much at all for some time. not been working due to ankle injury lachelle calero addressed moved into apartment family owns and doing work [employer] in 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 Hospital Course (1) Bipolar 2 disorder 03/26- -q15 minute safety checks for SI -coordinate care/presentation with outpt psychiatrist and outpt therapist ( with appt was scheduled for 03/25, needs to be rescheduled) -inpt group/individual/milieu therapy -after review of r/b/a raised seroquel to 100mg hs to more fully alleviate bipolar mood symptoms, while aiming to improve insomnia and anxiety and oCD symptoms more fullly off label -raised zoloft [id number] qday to more fully treat anxiety/ocd/depression while monitoring for adding to mood lability from this med and dose -klonopin has been stopped after self stopping abruptly and resuming lower dose recently and then stopped at time of discharge from medical admission, will stop this med -vistaril prn 25mg anxiety/50mg insomnia with potential for this med to be converted to ongoing med if alleviates anxiety in effective manner -at pt preference holding melatonin for now given its limited effectiveness and raise of seroquel -fasting labs for being on seroquel, appears to have been last checked early 2017 with pt reporting nl values -family meeting to be scheduled, pt seeking and parents to attend 03/27 - stop zoloft start prozac, first dose 10mg today then 20mg qday starting targeting depression, anxiety, ocd features continue lithium unchanged continue seroquel at 100mg hs for now reviewed fasting labwork, total cholesterol 201, rest nl reviewed family meeting, proposal writer provided supportive therapy re: asserting self and using support of loved ones more proactively and directly safety plan being worked on 03/28 - continue medications unchanged - due for lithium level 03/30 -vistaril prn med encouraged to be used for acute severe anxiety and can be continued as an outpt -monitor for s/e of her current medications leslie change to prozac -assisting pt on assertiveness, boundary setting with mother, working on her own structure and using as a primary support (2) Injury of ankle, right follow up with outpt providers and PT as appropriate (3) GERD (gastroesophageal reflux disease) continue outpt med (4) Vitamin D deficiency continue weekly VIt D3 50,000 IU asince not taken in extended time will re- start for 03/27 Risk Factors Assessment : Yes Mental Health Diagnoses: Yes Previous psychiatric stay: No Protective Factors Assessment Good rapport with provider: Yes Day of Discharge Assessment COURSE OF HOSPITALIZATION: 22-year-old female admitted voluntarily s/p intentional overdose. Pt reportedly had been off of her medications for 1 month and experienced recent worsening depression. She was found surrounded by tablets of clonazepam and eventually became unresponsive - requiring intubation and admission to the ICU prior to inpatient mental health treatment. Pt was restarted on her medications and sertraline was raised to 150mg daily. Pt's dose of quetiapine was also increased to 100mg. Clonazepam was stopped and hydroxyzine was found to be effective for anxiety. Sertraline was eventually discontinued for switch to fluoxetine 20mg, which patient has been tolerating. Pt was engaged in groups over the course of her admission and was agreeable to a family session with her , as well as an additional meeting which included her , mother, and step-father. Patient has engaged in group and recreational therapies during admission, and has completed a safety plan prior to discharge which was personally reviewed by this provider. DAY OF DISCHARGE ASSESSMENT: Pt's case reviewed and discussed during treatment team. Staff report the patient has been opening up during groups and has been rather cooperative. Pt' s is available to orange picker the patient early this afternoon. Pt was seen today to assess readiness for discharge. Pt states she is "good, just a little anxious." Pt reports specific concern of "the last time I was home, obviously something bad happened, so it's a bit daunting to go back, but I'm ok. " Pt states she feels as though things had improved fore her over the course of her admission. She noticed improvement in mood and was better able to process her suicide attempt. Pt states she is optimistic about her new medications, and is agreeable to a 1 weeks supply in order to get her to her psychiatrist, given overdose risk. She does share with this provider concern that she was told she would never be prescribed Klonopin again due to her overdose. Pt states, "it wasn't the only thing I took, that's like saying I can 't be on any of my medications." Clarified with patient that she initiated with several tablets of quetiapine, a few capsules of lithium, and several tablets of Klonopin. Pt states, "I figured a cocktail would be the most effective, I'm just being honest. I didn't want people to think I specifically only took Klonopin." Family has also been highly involved in ensuring safety at discharge, planning to be of assistance and will help with medication administration at home. Pt states her mood is good today and she denies SI. Based on review of the patient's records and presentation at this encounter, the patient appears appropriate for discharge today. Transition of care record was reviewed with the patient. Pt was encouraged to continue to take medications as prescribed until recommended to stop by another prescriber. The patient presented as alert and cooperative. The patient was casually dressed and groomed. Eye contact was good. No psychomotor restlessness or agitation was noted. Speech was normal in rate, rhythm, and volume. Affect was mood congruent. The patients mood appeared euthymic. Thought processes were clear, coherent and goal directed without evidence of loose associations or flight of ideas. Thought content/perception was reality based without delusions. The patient denied suicidal and homicidal ideation. The patient denied hallucinations and did not appear to be responding to internal stimuli. Cognition was grossly intact with orientation to person, place and time. Fund of Knowledge/Intelligence were consistent with level of education. Insight and Judgement were fair. Laboratory Refer to printed laboratory reports Test 03/27/18 07:24 Fasting Glucose 93 Triglycerides Level 148 Cholesterol Level 201 HDL Cholesterol 46 LDL Cholesterol, Calculated 125 VLDL Cholesterol, Calculated 30 Cholesterol/HDL Ratio 4.4 Total Time Total Time Spent (min): Greater than 30 minutes Total Time Included: examination of the patient, discharge planning, medication reconciliation Transition of Care Transition of care record: was reviewed with the patient Tobacco Cessation at Discharge Smoking Status: Current Some Day Smoker (1 cig about 2-3 times a week ) FDA approved Prescription: declined med & out pt counseling (not regular smoker )
[2018-03-29] MEDS: hydrOXYzine HCL 25 MG TAB PO PRN (10:23)
[2018-03-29] MEDS ORDERED: LTH300T PO ×2 (11:08)
[2018-03-29] MEDS ORDERED: QUET-115 PO (11:08)
[2018-03-29] MEDS ORDERED: ATR25 PO (11:08)
[2018-03-29] MEDS ORDERED: FLUO20CA36 PO (11:08)
[2018-03-29] MEDS ORDERED: DESTROY THIS MEDICATION SCH ×2 (12:00)
== END 2018-03-29 13:15 | disposition home or self-care (01) | DRG 885 ==
LOC: C.MHU 15:41
PROVIDERS: ADMIT Psychiatry & Neurology Psychiatry; ATTEND Psychiatry & Neurology Psychiatry
DX: F31.81 Bipolar II disorder (principal); R45.851 Suicidal ideations; F41.9 Anxiety disorder, unspecified; S99.911D Unspecified injury of right ankle, subsequent encounter; E55.9 Vitamin D deficiency, unspecified; K21.9 Gastro-esophageal reflux disease without esophagitis; F17.210 Nicotine dependence, cigarettes, uncomplicated; Z79.899 Other long term (current) drug therapy; Z88.0 Allergy status to penicillin; X58.XXXD Exposure to other specified factors, subsequent encounter

== ENCOUNTER 2024-02-06 07:35 | Inpatient (IN) ==
[2024-02-06] MEDS ORDERED: OXYTOCIN 30 UNITS/NSS 30 UNITS/500 ML BAG IV PRN (07:47)
[2024-02-06] MEDS ORDERED: CALCIUM CARBONATE 500 MG CHEWABLE TAB PO PRN (07:47)
[2024-02-06] MEDS ORDERED: LIDOCAINE 1% LOCAL 20 ML VIAL INFIL PRN (07:47)
--- NOTE | 2024-02-06 08:33 | History & Physical Report ---
Date of Service February 06, 2024 Assessment & Plan (1) Insulin controlled gestational diabetes mellitus (GDM) during : (2) Obesity affecting in third trimester: (3) Gestational hypertension: Plan Admit for iol. Casiano still in situ. Start pitocin. Fetus catogory one. check blood sugars hourly--goal of 80-120. Anticipate vaginal delivery. Admission and Anticipated Discharge Date Admission Date: February 06, 2024 History of Present Illness Chief Complaint: iol Primary Care Provider: Donna De MD Patient is a 28yowf with iup at 37 1/7 weeks who presents to labor and delivery for iol for hx of chtn and obesity. She was seen in labor and delivery yesterday after an elevated blood pressure in the office. Evaluated and labs all normal. no s/s of pet. she had a balloon placed yesterday. It is still in. Has been getting cramping early this am. and Delivery Plans Preeclampsia, Gest HTN *Weekly BP chk's with Doc *Weekly CBC, LFTs *Growth US Q4wks *If IUGR: MARYAM w/UAD's weekly *Deliver 37-38wks (IOL 02/06/24) *(If Gestational HTN<28wks bring to [facility]) *Twice weekly NST's @Dx Obesity (BMI 40 and higher @ beginning of ) Covered per GDM protocol Bipolar II - Sees Dr Lan [facility] Low dose aspirin *Nulliparity and increase BMI Insufficient DNA on Panrorama *Genetics consult GDM on insulin *Wkly NSTs @32wks and Twice wkly @36wks *Serial growth US @28wks *Deliver by [facility] OB Labs: Blood Type A Positive 07/18/23 Antibody Screen NEGATIVE 07/18/23 Hemoglobin 11.6 g/dl (12.0-16.0) L 02/01/24 Hematocrit 35.1 % (37.0-47.0) L 02/01/24 Mean Corpuscular Volume 84.0 fL (80.0-100.0) 02/01/24 Platelet Count 353 K/uL (130-400) 02/01/24 Rubella IgG Antibody Immune (Immune) 07/18/23 Rapid Plasma Reagin Nonreactive (Nonreactive) 07/18/23 Hepatitis B Surface Antigen. NON-REACTIVE (NON-REACTIVE) 07/18/23 Hepatitis C Antibody (EIA) NON-REACTIVE (NON-REACTIVE) 07/18/23 HIV (1&2) Ag and Ab Confirmation NON-REACTIVE (NON-REACTIVE) 07/18/23 Glucose 1 Hour 50 gm Load 165 mg/dl (70-130) H 09/10/23 OB Optional Labs: Chlamydia trachomatis RNA Not Detected (NotDetected) 07/18/23 Neisseria gonorrhoeae RNA Not Detected (NotDetected) 07/18/23 Thyroid Stimulating Hormone (TSH) 1.415 uIu/ml (0.300-4.500) 07/18/23 Labs Reviewed: cfdna-low fraction--mln gbs negative.--akh Allergies Allergy/AdvReac Type Severity Reaction Status Date / Time Penicillins Allergy Unknown FAMILY Unverified 02/05/24 10:00 ALLERGY Home Medications Medication Instructions Recorded Confirmed Type pantoprazole 40 mg tablet,delayed 40 mg PO DAILY 04/11/23 02/05/24 History release PNV [id number] 1 mg PO DAILY 07/11/23 02/05/24 History [ Gummies(zinc chelate)] quetiapine [Seroquel] 300 mg PO DAILY 07/11/23 02/05/24 History acetone (urine) test (Ketone Urine #50 ea 09/21/23 02/05/24 Rx Test strips) blood sugar diagnostic (OneTouch #150 ea 09/21/23 02/05/24 Rx Verio test strips) blood-glucose meter (OneTouch #1 ea 09/21/23 02/05/24 Rx Verio Reflect Meter) lancets 33 gauge (OneTouch Delica #150 ea 09/21/23 02/05/24 Rx Plus Lancet) pen needle, diabetic 32 gauge x #100 ea 10/04/23 02/05/24 Rx 5/32" (BD Ultra-Fine Aurora Pen Needle) insulin NPH isoph U-100 human 100 See Rx Instructions subcut QPM #15 10/05/23 02/05/24 Rx unit/mL (3 mL) subcutaneous pen mL (Novolin N FlexPen) fluoxetine 10 mg capsule (Prozac) 10 mg PO DAILY 01/03/24 02/05/24 History aspirin 81 mg capsule 81 mg PO DAILY 02/05/24 02/05/24 History Patient History Medical History Injury of ankle, right Acute alcohol intoxication in patient with alcoholism with blood alcohol level 0.08 to 0.29 Intentional overdose of drug in tablet form History of chicken pox Varicella vaccination Surgical History S/P wisdom tooth extraction Family History Family/Other Breast cancer Grandfather (Maternal) Myocardial infarction Denies family history of Ovarian cancer Prostate cancer Colorectal cancer Social History Smoking Status: Never smoker Second Hand Exposure: Yes; Do You Dip or Chew Tobacco: No; Hx Alcohol Use: No Hx Substance Use: Yes Last Used Substance Other:: before Preferred Language: British marital status: marital status details: Shakeel Valencia (27) [phone] Current Living Situation: Spouse Current Living Situation Comment: lives with spouse, dogs, cat-spouse changing litter current occupational status: unemployed Feels Safe at Home: Yes OB History g1--present HOTEL YARDPERSON History noncontributory Physical Exam Constitutional: WD/WN, vitals as above Gastrointestinal (Abdomen): soft, nt, nd, gravid Psychiatric: A+Ox3, euthymic affect Genitourinary: cx--130s with mod variability, accels to 160s, no decels toco--none cx--deferred as bulb still in Results & Data Vital Signs (Past 12 Hours) Vital Signs Temp Pulse Resp BP BP 02/06/24 08:11 37.0 C 16 138/90 02/06/24 08:11 93 H 138/90 Code Status & VTE Plan VTE Prophylaxis Plan VTE Prophylaxis will be ordered: No Coding Level of Care Code None Diagnoses Insulin controlled gestational diabetes mellitus (GDM) during O24.414 Obesity affecting in third trimester O99.213 Gestational hypertension, third trimester O13.3 Trimester: third trimester (3) Gestational hypertension Trimester: third trimester Qualified Code(s): O13.3 - Gestational [- induced] hypertension without significant proteinuria, third trimester
[2024-02-06 08:46] LABS: Hematocrit (blood only) 34.6 % (37.0-47.0); Hemoglobin 11.2 g/dl (12.0-16.0); Mean Corpuscular Hemoglobin 27.5 pg (25.0-34.0); Mean Corpuscular Hgb Conc 32.4 g/dL (32.0-36.0); Mean Platelet Volume 11.4 fL (9.4-12.4); Platelet Count 320 K/uL (130-400); RDW Coefficient of Variation 15.5 % (11.5-14.5); RDW Standard Deviation 48.1 fL (36.4-46.3); Red Blood Count 4.07 M/uL (4.20-5.40); White Blood Count 16.22 K/ul (4.8-10.8)
[2024-02-06] MEDS: LACTATED RINGER'S 1,000 ML IV PRN (09:13)
[2024-02-06] MEDS: OXYTOCIN 30 UNITS/NSS 30 UNITS/500 ML BAG IV PRN (09:15)
--- NOTE | 2024-02-06 14:48 | Anesthesiology Consultation ---
Date of Service February 06, 2024 Assessment & Plan (1) Encounter for pre-operative examination: Chart Review Chart Review: Acceptable Risk for Labor Epidural History Height/Weight Height: 5 ft 8.5 in Weight: 142.882 kg Allergies Allergy/AdvReac Type Severity Reaction Status Date / Time Penicillins Allergy Unknown FAMILY Unverified 02/05/24 10:00 ALLERGY Medications Home Medications Medication Instructions Recorded Confirmed Last Taken pantoprazole 40 mg tablet,delayed 40 mg PO DAILY 04/11/23 02/06/24 02/06/24 release PNV [id number] 1 mg PO DAILY 07/11/23 02/06/24 02/06/24 [ Gummies(zinc chelate)] quetiapine [Seroquel] 300 mg PO DAILY 07/11/23 02/06/24 02/05/24 acetone (urine) test (Ketone Urine #50 ea 09/21/23 02/06/24 Unknown Test strips) blood sugar diagnostic (OneTouch #150 ea 09/21/23 02/06/24 Unknown Verio test strips) blood-glucose meter (OneTouch #1 ea 09/21/23 02/06/24 Unknown Verio Reflect Meter) lancets 33 gauge (OneTouch Delica #150 ea 09/21/23 02/06/24 Unknown Plus Lancet) pen needle, diabetic 32 gauge x #100 ea 10/04/23 02/06/24 Unknown 32" (BD Ultra-Fine Aurora Pen Needle) insulin NPH isoph U-100 human 100 See Rx Instructions subcut QPM #15 10/05/23 02/06/24 02/05/24 unit/mL (3 mL) subcutaneous pen mL (Novolin N FlexPen) fluoxetine 10 mg capsule (Prozac) 10 mg PO DAILY 01/03/24 02/06/24 02/06/24 aspirin 81 mg capsule 81 mg PO DAILY 02/05/24 02/06/24 02/05/24 Active Medications Generic Name Dose Route Start Last Admin Trade Name Freq PRN Reason Stop Dose Admin Lactated Ringer's 1,000 mls @ 125 mls/hr 02/06/24 07:47 02/06/24 09:13 Lr IV 02/08/24 07:46 125 mls/hr .Q8H PRN Administration L&D Protocol Protocol Oxytocin 30 units in 500 mls @ 20 mls/hr 02/06/24 07:49 02/06/24 14:05 Pitocin 30 Units/Nss IV 02/08/24 07:48 1.2 units/hr .Q24H PRN 20 mls/hr Labor Induction/Augmentation Titration Protocol 1.2 UNITS/HR Past Medical History Medical History (Updated 02/06/24 @ 14:48 by Andrzej Sheth MD) Insulin controlled gestational diabetes mellitus (GDM) during History of marijuana use Bipolar 2 disorder Injury of ankle, right Acute alcohol intoxication in patient with alcoholism with blood alcohol level 0.08 to 0.29 Intentional overdose of drug in tablet form History of chicken pox Varicella vaccination Past Family History Family History Family/Other Breast cancer Grandfather (Maternal) Myocardial infarction Denies family history of Ovarian cancer Prostate cancer Colorectal cancer Past Surgical History Surgical History S/P wisdom tooth extraction Social History Smoking Status: Never smoker Do You Dip or Chew Tobacco: No Hx Alcohol Use: No Hx Substance Use: Yes substance use type: marijuana Last Used Substance: Unknown Last Used Substance Other:: has not used in Physical Exam Vital Signs Last Vital Signs Temp 36.8 C 02/06/24 12:00 Pulse 90 02/06/24 14:01 Resp 16 02/06/24 12:00 BP 139/86 02/06/24 14:01 Testing Laboratory Results 02/06/24 08:08 Blood Type A Positive 02/06/24 08:08 Antibody Screen NEGATIVE 02/06/24 08:08 02/06/24 02/06/24 02/06/24 14:01 13:02 12:05 POC Glucose 90 131 H 93 02/06/24 02/06/24 02/06/24 10:59 10:06 09:09 POC Glucose 73 82 88 02/06/24 08:05 POC Glucose 116 H
[2024-02-06] MEDS: fentaNYL citrate PF 100 MCG/2 ML VIAL ONE (15:27)
[2024-02-06] MEDS: BUPIVACAINE 0.25% PF 30 ML VIAL ONE (15:28)
[2024-02-06] MEDS ORDERED: SODIUM CHLORIDE 0.9% PF INJ 10 ML VIAL EPI PRN (15:28)
[2024-02-06] MEDS ORDERED: fentaNYL citrate PF 100 MCG/2 ML VIAL EPI PRN (15:28)
[2024-02-06] MEDS ORDERED: LIDOCAINE 2% MPF LOCAL 5 ML VIAL EPI PRN (15:28)
[2024-02-06] MEDS ORDERED: NALOXONE HCL 0.4 MG/1 ML VIAL/CARP IV PRN (15:28)
[2024-02-06] MEDS: LIDOCAINE 2%/EPINEPHRINE 1:200,000 20 ML PF ONE (15:28)
[2024-02-06] MEDS ORDERED: BUPIVACAINE 0.25% PF 30 ML VIAL EPI PRN (15:28)
[2024-02-06] MEDS: fentANYL 2 MCG/ML BUPIVacaine 0.125%-NSS 100ML BAG ONE (15:28)
[2024-02-06] MEDS ORDERED: NALOXONE HCL 1 MG in SODIUM CHLORIDE 0.9% 1,000 ML IV PRN (15:28)
[2024-02-06] MEDS ORDERED: ROPIVACAINE 0.5% PF 5 MG/ML 20 ML VIAL EPI PRN (15:28)
[2024-02-06] MEDS ORDERED: ePHEDrine sulfate 50 MG/ML AMP IV PRN (15:28)
[2024-02-06] MEDS: SODIUM CHLORIDE 0.9% PF INJ 10 ML VIAL ONE (15:32)
[2024-02-06] MEDS: ePHEDrine sulfate 50 MG/ML AMP ONE (15:32)
--- NOTE | 2024-02-06 16:07 | Labor Progress Brief Note ---
Date of Service February 06, 2024 Subjective comfortable after epidural. pit at 20 Assessment & Plan (1) Obesity affecting in third trimester: (2) Gestational diabetes mellitus (GDM) affecting , antepartum: Plan BPS are wnl, blood sugars for the most part between 80-120. fetus category one. Does not look like contractions are adequate. Aim for mvus >200. Admission and Anticipated Discharge Date Admission Date: February 06, 2024 Physical Exam Physical Exam: cx--tight3/75/-2 arom--clear iupc and fse placed toco--q2-4min efm--140s wtih mod variability, accels to 150s, no decels Results & Data Vital Signs (Past 12 Hours) Vital Signs Temp Pulse Resp BP BP Pulse Ox Pulse Ox 02/06/24 16:04 99 H 100 02/06/24 15:59 80 143/95 H 100 02/06/24 15:54 100 02/06/24 15:54 98 H 02/06/24 15:54 89 142/77 H 02/06/24 15:49 100 02/06/24 15:49 88 02/06/24 15:49 86 142/75 H 02/06/24 15:44 85 100 02/06/24 15:43 93 H 140/79 02/06/24 15:39 88 100 02/06/24 15:38 90 134/74 02/06/24 15:34 87 100 02/06/24 15:32 90 135/74 02/06/24 15:29 89 132/77 100 02/06/24 15:28 98 02/06/24 15:26 91 H 138/79 02/06/24 15:24 93 H 100 02/06/24 15:23 87 135/82 02/06/24 15:20 88 142/85 H 02/06/24 15:19 82 100 02/06/24 15:14 99 H 100 02/06/24 15:09 86 100 02/06/24 15:08 103 H 83 L 02/06/24 15:04 95 H 144/90 H 100 02/06/24 14:59 90 100 02/06/24 14:01 90 139/86 02/06/24 13:02 98 H 147/89 H 02/06/24 12:32 96 H 146/78 H 02/06/24 12:00 36.8 C 90 16 02/06/24 11:32 90 131/77 02/06/24 10:58 88 134/88 02/06/24 10:34 86 153/93 H 02/06/24 10:21 94 H 123/77 02/06/24 09:13 90 138/86 02/06/24 08:12 37.0 C 93 H 18 138/90 02/06/24 08:11 37.0 C 16 138/90 02/06/24 08:11 93 H 138/90 O2 Del Method 02/06/24 16:04 02/06/24 15:59 02/06/24 15:54 02/06/24 15:54 02/06/24 15:54 02/06/24 15:49 02/06/24 15:49 02/06/24 15:49 02/06/24 15:44 02/06/24 15:43 02/06/24 15:39 02/06/24 15:38 02/06/24 15:34 02/06/24 15:32 02/06/24 15:29 02/06/24 15:28 Room Air 02/06/24 15:26 02/06/24 15:24 02/06/24 15:23 02/06/24 15:20 02/06/24 15:19 02/06/24 15:14 02/06/24 15:09 02/06/24 15:08 02/06/24 15:04 02/06/24 14:59 02/06/24 14:01 02/06/24 13:02 02/06/24 12:32 02/06/24 12:00 02/06/24 11:32 02/06/24 10:58 02/06/24 10:34 02/06/24 10:21 02/06/24 09:13 02/06/24 08:12 02/06/24 08:11 02/06/24 08:11 Coding Level of Care Code None Diagnoses Obesity affecting in third trimester O99.213 Gestational diabetes mellitus (GDM) affecting , antepartum O24.419
[2024-02-06] MEDS: fentaNYL citrate PF 100 MCG/2 ML VIAL EPI STA (17:09)
[2024-02-06] MEDS: BUPIVACAINE 0.25% PF 30 ML VIAL EPI STA (17:09)
[2024-02-06] MEDS: LIDOCAINE 2%/EPINEPHRINE 1:200,000 20 ML PF EPI STA (17:09)
[2024-02-06] MEDS: SODIUM CHLORIDE 0.9% PF INJ 10 ML VIAL EPI STA (17:09)
[2024-02-06] MEDS: ONDANSETRON INJ 2 MG/ML 2 ML VIAL IV PRN (21:39)
[2024-02-06] MEDS: ACETAMINOPHEN 325 MG TAB PO PRN (21:58)
--- NOTE | 2024-02-06 22:00 | Labor Progress Brief Note ---
Date of Service February 06, 2024 Subjective comfortable. noting some nausea Assessment & Plan (1) Obesity affecting in third trimester: (2) Gestational hypertension: Trimester: third trimester Qualified Code(s): O13.3 - Gestational [-induced] hypertension without significant proteinuria, third trimester (3) Gestational diabetes mellitus (GDM) affecting , antepartum: Plan iol in morbidly obese female. rom for 6 hours. Made a very small change. Not surprised at no change. still in latent labor. contractions are adequate at this point. fetus category one. continue current management. Admission and Anticipated Discharge Date Admission Date: February 06, 2024 Physical Exam Physical Exam: cx--/-2 toco--q2min, pit at 10, mvus >200 efm--130s wtih mod variability, accels to 150s, rare variable Results & Data Vital Signs (Past 12 Hours) Vital Signs Temp Pulse Resp BP Pulse Ox Pulse Ox O2 Del Method 02/06/24 21:54 89 100 02/06/24 21:49 89 100 02/06/24 21:46 90 128/69 02/06/24 21:44 95 H 100 02/06/24 21:39 95 H 100 02/06/24 21:34 80 100 02/06/24 21:29 89 100 02/06/24 21:24 89 96 02/06/24 21:19 92 H 97 02/06/24 21:15 91 H 129/70 02/06/24 21:14 85 96 02/06/24 21:09 93 H 97 02/06/24 21:04 88 97 02/06/24 21:01 90 132/73 02/06/24 21:00 16 02/06/24 21:00 36.4 C L 16 02/06/24 20:59 90 98 02/06/24 20:54 85 100 02/06/24 20:49 92 H 99 02/06/24 20:45 89 126/61 02/06/24 20:44 90 97 02/06/24 20:39 91 H 97 02/06/24 20:34 95 H 97 02/06/24 20:31 93 H 127/69 02/06/24 20:30 16 02/06/24 20:30 16 02/06/24 20:29 92 H 98 02/06/24 20:24 92 H 98 07/03/24 20:19 96 H 98 02/06/24 20:14 93 H 100 02/06/24 20:09 102 H 99 02/06/24 20:04 95 H 98 02/06/24 20:01 89 129/67 02/06/24 20:00 16 02/06/24 20:00 16 02/06/24 19:59 90 99 02/06/24 19:54 94 H 100 02/06/24 19:49 91 H 100 02/06/24 19:46 87 129/69 02/06/24 19:44 92 H 100 02/06/24 19:39 87 100 02/06/24 19:34 95 H 100 02/06/24 19:31 93 H 130/69 02/06/24 19:30 16 02/06/24 19:30 36.6 C 16 02/06/24 19:29 88 100 02/06/24 19:24 92 H 100 02/06/24 19:19 95 H 100 02/06/24 19:15 89 139/71 02/06/24 19:14 94 H 100 02/06/24 19:09 92 H 100 02/06/24 19:04 96 H 99 02/06/24 19:00 16 02/06/24 19:00 16 02/06/24 18:59 90 100 02/06/24 18:54 103 H 98 02/06/24 18:49 91 H 100 02/06/24 18:46 88 129/73 02/06/24 18:44 87 99 02/06/24 18:39 88 100 02/06/24 18:34 87 100 02/06/24 18:32 90 126/78 02/06/24 18:30 16 02/06/24 18:30 16 02/06/24 18:29 91 H 100 02/06/24 18:24 86 100 02/06/24 18:19 91 H 99 02/06/24 18:16 84 132/66 02/06/24 18:14 84 99 02/06/24 18:09 86 100 02/06/24 18:04 85 100 02/06/24 18:00 18 02/06/24 18:00 36.5 C 18 02/06/24 18:00 82 16 130/70 02/06/24 17:59 86 100 02/06/24 17:54 82 100 02/06/24 17:49 91 H 100 02/06/24 17:45 84 127/70 02/06/24 17:44 84 100 02/06/24 17:39 89 100 02/06/24 17:34 92 H 100 02/06/24 17:31 88 141/67 H 02/06/24 17:30 16 02/06/24 17:30 16 02/06/24 17:29 95 H 100 02/06/24 17:24 88 100 02/06/24 17:19 102 H 99 02/06/24 17:15 90 16 120/72 02/06/24 17:14 88 100 02/06/24 17:09 87 100 02/06/24 17:04 89 100 02/06/24 17:01 86 115/69 02/06/24 17:00 16 02/06/24 17:00 16 02/06/24 16:59 96 H 100 02/06/24 16:54 93 H 100 02/06/24 16:49 92 H 100 02/06/24 16:46 89 132/70 02/06/24 16:44 89 100 02/06/24 16:39 94 H 100 02/06/24 16:34 89 100 02/06/24 16:31 86 133/68 02/06/24 16:30 16 02/06/24 16:30 16 02/06/24 16:29 89 100 02/06/24 16:24 88 100 02/06/24 16:19 91 H 100 02/06/24 16:16 90 142/66 H 02/06/24 16:14 91 H 100 02/06/24 16:09 96 H 100 02/06/24 16:04 99 H 100 02/06/24 16:00 18 02/06/24 16:00 18 02/06/24 15:59 80 143/95 H 100 02/06/24 15:55 16 02/06/24 15:55 36.6 C 16 02/06/24 15:54 100 02/06/24 15:54 98 H 02/06/24 15:54 89 142/77 H 02/06/24 15:49 100 02/06/24 15:49 88 02/06/24 15:49 86 142/75 H 02/06/24 15:44 85 100 02/06/24 15:43 93 H 140/79 02/06/24 15:39 88 100 02/06/24 15:38 90 134/74 02/06/24 15:34 87 100 02/06/24 15:32 90 135/74 02/06/24 15:30 16 02/06/24 15:30 16 02/06/24 15:29 89 132/77 100 02/06/24 15:28 98 Room Air 02/06/24 15:26 91 H 138/79 02/06/24 15:24 93 H 100 02/06/24 15:23 87 135/82 02/06/24 15:20 88 142/85 H 02/06/24 15:19 82 100 02/06/24 15:14 99 H 100 02/06/24 15:09 86 100 02/06/24 15:08 103 H 83 L 02/06/24 15:04 95 H 144/90 H 100 02/06/24 14:59 90 100 02/06/24 14:01 90 139/86 02/06/24 13:02 98 H 147/89 H 02/06/24 12:32 96 H 146/78 H 02/06/24 12:00 36.8 C 90 16 02/06/24 11:32 90 131/77 02/06/24 10:58 88 134/88 02/06/24 10:34 86 153/93 H 02/06/24 10:21 94 H 123/77 Coding Level of Care Code None Diagnoses Obesity affecting in third trimester O99.213 Gestational hypertension, third trimester O13.3 Trimester: third trimester Gestational diabetes mellitus (GDM) affecting , antepartum O24.419
[2024-02-07] MEDS: fentANYL 2 MCG/ML BUPIVacaine 0.125%-NSS 100ML BAG EPI PRN (00:37)
--- NOTE | 2024-02-07 04:34 | Labor Progress Brief Note ---
Date of Service February 07, 2024 Subjective uncomfortable, noting pain in back and belly that is coming and going Assessment & Plan (1) Obesity affecting in third trimester: (2) Gestational hypertension: Trimester: third trimester Qualified Code(s): O13.3 - Gestational [-induced] hypertension without significant proteinuria, third trimester (3) Gestational diabetes mellitus (GDM) affecting , antepartum: Plan pressures and bs stable. Has definitely made change since bulb has fallen out but very slow. Nonetheless positive change. So will continue to press on. rom for 12 hours at this point. afebrile, fetus category one. Admission and Anticipated Discharge Date Admission Date: February 06, 2024 Physical Exam Physical Exam: cx--5/100/-3 toco--q2min, pit at 16, mvus have suddenly decreased efm--130s with mod varaibility, accels to 150s, no decels Results & Data Vital Signs (Past 12 Hours) Vital Signs Temp Pulse Resp BP Pulse Ox 02/07/24 04:29 84 100 02/07/24 04:24 87 100 02/07/24 04:19 80 100 02/07/24 04:16 68 137/72 02/07/24 04:14 87 100 02/07/24 04:09 69 100 02/07/24 04:04 73 100 02/07/24 04:01 80 129/71 02/07/24 03:59 84 100 02/07/24 03:54 68 100 02/07/24 03:49 68 100 02/07/24 03:46 75 121/70 02/07/24 03:44 74 99 02/07/24 03:39 76 98 02/07/24 03:34 73 100 02/07/24 03:31 73 124/67 02/07/24 03:30 36.2 C L 02/07/24 03:30 36.2 C L 02/07/24 03:29 81 98 02/07/24 03:24 81 99 02/07/24 03:19 73 100 02/07/24 03:15 74 118/64 02/07/24 03:14 71 100 02/07/24 03:09 73 100 02/07/24 03:04 75 99 02/07/24 03:00 76 16 119/61 02/07/24 02:59 75 99 02/07/24 02:54 74 100 02/07/24 02:49 73 100 02/07/24 02:45 81 120/62 02/07/24 02:44 78 100 02/07/24 02:39 90 100 02/07/24 02:34 80 97 02/07/24 02:30 90 18 129/78 02/07/24 02:29 82 97 02/07/24 02:24 72 97 02/07/24 02:19 79 97 02/07/24 02:16 77 129/80 02/07/24 02:14 73 98 02/07/24 02:09 76 97 02/07/24 02:04 79 98 02/07/24 02:00 75 133/75 02/07/24 01:59 74 99 02/07/24 01:54 76 99 02/07/24 01:49 77 97 02/07/24 01:47 74 145/78 H 02/07/24 01:44 85 100 02/07/24 01:39 96 H 100 02/07/24 01:34 79 96 02/07/24 01:31 83 128/75 02/07/24 01:30 16 02/07/24 01:30 36.5 C 16 02/07/24 01:29 79 96 02/07/24 01:24 78 96 02/07/24 01:19 81 95 02/07/24 01:16 79 123/72 02/07/24 01:14 82 95 02/07/24 01:09 79 96 02/07/24 01:04 79 98 02/07/24 01:01 75 134/80 02/07/24 01:00 16 02/07/24 01:00 16 02/07/24 00:59 89 100 02/07/24 00:54 77 97 02/07/24 00:49 82 100 02/07/24 00:47 76 128/73 02/07/24 00:44 88 97 02/07/24 00:39 79 96 02/07/24 00:34 78 97 02/07/24 00:31 83 128/77 02/07/24 00:30 16 02/07/24 00:30 16 02/07/24 00:29 77 96 02/07/24 00:24 77 96 02/07/24 00:19 75 98 02/07/24 00:16 77 121/69 02/07/24 00:14 78 96 02/07/24 00:09 74 97 02/07/24 00:04 74 99 02/07/24 00:00 36.5 C 75 14 131/78 02/06/24 23:59 75 100 02/06/24 23:54 81 100 02/06/24 23:49 81 100 02/06/24 23:47 80 132/73 02/06/24 23:44 77 100 02/06/24 23:39 95 H 100 02/06/24 23:34 83 98 02/06/24 23:30 97 H 16 108/55 L 02/06/24 23:29 76 99 02/06/24 23:24 81 98 02/06/24 23:19 82 98 02/06/24 23:15 77 111/56 L 02/06/24 23:14 86 97 02/06/24 23:09 88 97 02/06/24 23:04 87 98 02/06/24 23:00 93 H 16 115/61 02/06/24 22:59 90 98 02/06/24 22:54 76 99 02/06/24 22:49 78 98 02/06/24 22:45 88 114/58 L 02/06/24 22:44 85 98 02/06/24 22:39 87 97 02/06/24 22:34 88 97 02/06/24 22:31 83 115/57 L 02/06/24 22:30 16 02/06/24 22:30 16 02/06/24 22:29 80 97 02/06/24 22:24 84 97 02/06/24 22:19 87 98 02/06/24 22:15 79 121/69 02/06/24 22:14 83 100 02/06/24 22:09 79 100 02/06/24 22:04 86 100 02/06/24 22:01 83 122/66 02/06/24 22:00 16 02/06/24 22:00 16 02/06/24 21:59 84 100 02/06/24 21:54 89 100 02/06/24 21:49 89 100 02/06/24 21:46 90 128/69 02/06/24 21:44 95 H 100 02/06/24 21:39 95 H 100 02/06/24 21:34 80 100 02/06/24 21:30 16 02/06/24 21:30 36.4 C L 16 02/06/24 21:29 89 100 02/06/24 21:24 89 96 02/06/24 21:19 92 H 97 02/06/24 21:15 91 H 129/70 02/06/24 21:14 85 96 02/06/24 21:09 93 H 97 02/06/24 21:04 88 97 02/06/24 21:01 90 132/73 02/06/24 21:00 16 02/06/24 21:00 36.4 C L 16 02/06/24 20:59 90 98 02/06/24 20:54 85 100 02/06/24 20:49 92 H 99 02/06/24 20:45 89 126/61 02/06/24 20:44 90 97 02/06/24 20:39 91 H 97 02/06/24 20:34 95 H 97 02/06/24 20:31 93 H 127/69 02/06/24 20:30 16 02/06/24 20:30 16 02/06/24 20:29 92 H 98 02/06/24 20:24 92 H 98 02/06/24 20:19 96 H 98 02/06/24 20:14 93 H 100 02/06/24 20:09 102 H 99 02/06/24 20:04 95 H 98 02/06/24 20:01 89 129/67 02/06/24 20:00 16 02/06/24 20:00 16 02/06/24 19:59 90 99 02/06/24 19:54 94 H 100 02/06/24 19:49 91 H 100 02/06/24 19:46 87 129/69 02/06/24 19:44 92 H 100 02/06/24 19:39 87 100 02/06/24 19:34 95 H 100 02/06/24 19:31 93 H 130/69 02/06/24 19:30 16 02/06/24 19:30 36.6 C 16 02/06/24 19:29 88 100 02/06/24 19:24 92 H 100 02/06/24 19:19 95 H 100 02/06/24 19:15 89 139/71 02/06/24 19:14 94 H 100 02/06/24 19:09 92 H 100 02/06/24 19:04 96 H 99 02/06/24 19:00 16 02/06/24 19:00 16 02/06/24 18:59 90 100 02/06/24 18:54 103 H 98 02/06/24 18:49 91 H 100 02/06/24 18:46 88 129/73 02/06/24 18:44 87 99 02/06/24 18:39 88 100 02/06/24 18:34 87 100 02/06/24 18:32 90 126/78 02/06/24 18:30 16 02/06/24 18:30 16 02/06/24 18:29 91 H 100 02/06/24 18:24 86 100 02/06/24 18:19 91 H 99 02/06/24 18:16 84 132/66 02/06/24 18:14 84 99 02/06/24 18:09 86 100 02/06/24 18:04 85 100 02/06/24 18:00 18 02/06/24 18:00 36.5 C 18 02/06/24 18:00 82 16 130/70 02/06/24 17:59 86 100 02/06/24 17:54 82 100 02/06/24 17:49 91 H 100 02/06/24 17:45 84 127/70 02/06/24 17:44 84 100 02/06/24 17:39 89 100 02/06/24 17:34 92 H 100 02/06/24 17:31 88 141/67 H 02/06/24 17:30 16 02/06/24 17:30 16 02/06/24 17:29 95 H 100 02/06/24 17:24 88 100 02/06/24 17:19 102 H 99 02/06/24 17:15 90 16 120/72 02/06/24 17:14 88 100 02/06/24 17:09 87 100 02/06/24 17:04 89 100 02/06/24 17:01 86 115/69 02/06/24 17:00 16 02/06/24 17:00 16 02/06/24 16:59 96 H 100 02/06/24 16:54 93 H 100 02/06/24 16:49 92 H 100 02/06/24 16:46 89 132/70 02/06/24 16:44 89 100 02/06/24 16:39 94 H 100 02/06/24 16:34 89 100 Coding Level of Care Code None Diagnoses Obesity affecting in third trimester O99.213 Gestational hypertension, third trimester O13.3 Trimester: third trimester Gestational diabetes mellitus (GDM) affecting , antepartum O24.419
[2024-02-07] MEDS ORDERED: NURSING L&D Epidural Breakthrough Pain Update ONE (04:39)
[2024-02-07] MEDS ORDERED: ROPIVACAINE 0.5% 5 MG/ML 30 ML VIAL ONE (05:18)
[2024-02-07] MEDS ORDERED: LIDOCAINE 2%/EPINEPHRINE 1:200,000 20 ML PF ONE (05:18)
--- NOTE | 2024-02-07 05:29 | Anesthesia Procedure Note ---
Date of Service February 07, 2024 Anesthesia Epidural Re-Dose Vital Signs Temp Pulse Resp BP Pulse Ox O2 Del Method 36.2 C L 93 H 16 151/82 H 99 Room Air 02/07/24 03:30 02/07/24 05:24 02/07/24 03:00 02/07/24 05:15 02/07/24 05:24 02/06/24 15:28 Notes Pain Intensity: 7 Dilatation (cm): 5.0 Effacement (%): 100 Called by nursing to evaluate epidural as the patient is having increased pain. The epidural was re-dosed with the following medications (all medications via epidural route) after negative aspiration of the epidural catheter for CSF/HEME 1.2% lidocaine and 0.2% ropivacaine 7ml - not much improvement - level of sensation to cold below waist - additional 3 plus 3ml given with patient tilted the other direction - no improvement - checked and 6-7, 100% - decided to replace epidural - prior one did look pulled out far enough to not be working - pulled - tip intact - prep, drape, 1.5% lido in skin at L34, tuohy to SHARATH at nearly 9cm - 26g in + csf - dosed with 1.1ml of 0.25% bupiv and 10mcg fentanyl - catheter in to 14.5cm - asp negative, test dose of 4ml lido 2% ok - patient much better. vitals stable - fhr stable. After Epidural Re-Dose Mental Status: alert / awake / arousable Pain: improving with treatment (not with boluses but with new cse) Airway Patency, RR, SpO2: stable & adequate BP & HR: stable & adequate
--- NOTE | 2024-02-07 06:30 | Labor Progress Brief Note ---
Date of Service February 07, 2024 Subjective uncomfortable, being attended to by anesthesia, vomiting Assessment & Plan (1) Obesity affecting in third trimester: (2) Gestational hypertension: Trimester: third trimester Qualified Code(s): O13.3 - Gestational [-induced] hypertension without significant proteinuria, third trimester (3) Gestational diabetes mellitus (GDM) affecting , antepartum: Plan finally making change and in active labor. Fetus overall reassuring at present. Will continue to monitor closely. Anesthesia actively working with the patient. IUPC now only showing when we are having contractions but since making change, we will hold pit here and monitor carefully. fse working well. Admission and Anticipated Discharge Date Admission Date: February 06, 2024 Physical Exam Physical Exam: cx--6-7/100/-2 toco--q2-3, pit at 16 iupc is no essentially out efm--140s with mod variability, variables with some contractions, small accels Results & Data Vital Signs (Past 12 Hours) Vital Signs Temp Pulse Resp BP Pulse Ox 02/07/24 06:24 93 H 99 02/07/24 06:19 93 H 97 02/07/24 06:15 80 141/88 H 02/07/24 06:14 83 98 02/07/24 06:09 93 H 98 02/07/24 06:04 89 99 02/07/24 06:00 86 138/81 02/07/24 05:59 96 H 99 02/07/24 05:54 96 H 99 02/07/24 05:52 46 L 90 02/07/24 05:49 92 H 99 02/07/24 05:45 89 155/96 H 02/07/24 05:44 87 100 02/07/24 05:39 84 100 02/07/24 05:34 93 H 100 02/07/24 05:30 86 153/92 H 02/07/24 05:29 85 100 02/07/24 05:24 93 H 99 02/07/24 05:19 90 100 02/07/24 05:15 76 151/82 H 02/07/24 05:14 77 100 02/07/24 05:09 76 100 02/07/24 05:04 96 H 99 02/07/24 05:02 95 H 166/112 H 02/07/24 04:59 91 H 98 02/07/24 04:54 89 99 02/07/24 04:49 87 100 02/07/24 04:45 104 H 150/91 H 02/07/24 04:44 96 H 100 02/07/24 04:39 87 99 02/07/24 04:35 86 93 02/07/24 04:34 82 99 02/07/24 04:31 83 153/90 H 02/07/24 04:29 84 100 02/07/24 04:24 87 100 02/07/24 04:19 80 100 02/07/24 04:16 68 137/72 02/07/24 04:14 87 100 02/07/24 04:09 69 100 02/07/24 04:04 73 100 02/07/24 04:01 80 129/71 02/07/24 03:59 84 100 02/07/24 03:54 68 100 02/07/24 03:49 68 100 02/07/24 03:46 75 121/70 02/07/24 03:44 74 99 02/07/24 03:39 76 98 02/07/24 03:34 73 100 02/07/24 03:31 73 124/67 02/07/24 03:30 36.2 C L 02/07/24 03:30 36.2 C L 02/07/24 03:29 81 98 02/07/24 03:24 81 99 02/07/24 03:19 73 100 02/07/24 03:15 74 118/64 02/07/24 03:14 71 100 02/07/24 03:09 73 100 02/07/24 03:04 75 99 02/07/24 03:00 76 16 119/61 02/07/24 02:59 75 99 02/07/24 02:54 74 100 02/07/24 02:49 73 100 02/07/24 02:45 81 120/62 02/07/24 02:44 78 100 02/07/24 02:39 90 100 02/07/24 02:34 80 97 02/07/24 02:30 90 18 129/78 02/07/24 02:29 82 97 02/07/24 02:24 72 97 02/07/24 02:19 79 97 02/07/24 02:16 77 129/80 02/07/24 02:14 73 98 02/07/24 02:09 76 97 02/07/24 02:04 79 98 02/07/24 02:00 75 133/75 02/07/24 01:59 74 99 02/07/24 01:54 76 99 02/07/24 01:49 77 97 02/07/24 01:47 74 145/78 H 02/07/24 01:44 85 100 02/07/24 01:39 96 H 100 02/07/24 01:34 79 96 02/07/24 01:31 83 128/75 02/07/24 01:30 16 02/07/24 01:30 36.5 C 16 02/07/24 01:29 79 96 02/07/24 01:24 78 96 02/07/24 01:19 81 95 02/07/24 01:16 79 123/72 02/07/24 01:14 82 95 02/07/24 01:09 79 96 02/07/24 01:04 79 98 02/07/24 01:01 75 134/80 02/07/24 01:00 16 02/07/24 01:00 16 02/07/24 00:59 89 100 02/07/24 00:54 77 97 02/07/24 00:49 82 100 02/07/24 00:47 76 128/73 02/07/24 00:44 88 97 02/07/24 00:39 79 96 02/07/24 00:34 78 97 02/07/24 00:31 83 128/77 02/07/24 00:30 16 02/07/24 00:30 16 02/07/24 00:29 77 96 02/07/24 00:24 77 96 02/07/24 00:19 75 98 02/07/24 00:16 77 121/69 02/07/24 00:14 78 96 02/07/24 00:09 74 97 02/07/24 00:04 74 99 02/07/24 00:00 36.5 C 75 14 131/78 02/06/24 23:59 75 100 02/06/24 23:54 81 100 02/06/24 23:49 81 100 02/06/24 23:47 80 132/73 02/06/24 23:44 77 100 02/06/24 23:39 95 H 100 02/06/24 23:34 83 98 02/06/24 23:30 97 H 16 108/55 L 02/06/24 23:29 76 99 02/06/24 23:24 81 98 02/06/24 23:19 82 98 02/06/24 23:15 77 111/56 L 02/06/24 23:14 86 97 02/06/24 23:09 88 97 02/06/24 23:04 87 98 02/06/24 23:00 93 H 16 115/61 02/06/24 22:59 90 98 02/06/24 22:54 76 99 02/06/24 22:49 78 98 02/06/24 22:45 88 114/58 L 02/06/24 22:44 85 98 02/06/24 22:39 87 97 02/06/24 22:34 88 97 02/06/24 22:31 83 115/57 L 02/06/24 22:30 16 02/06/24 22:30 16 02/06/24 22:29 80 97 02/06/24 22:24 84 97 02/06/24 22:19 87 98 02/06/24 22:15 79 121/69 02/06/24 22:14 83 100 02/06/24 22:09 79 100 02/06/24 22:04 86 100 02/06/24 22:01 83 122/66 02/06/24 22:00 16 02/06/24 22:00 16 02/06/24 21:59 84 100 02/06/24 21:54 89 100 02/06/24 21:49 89 100 02/06/24 21:46 90 128/69 02/06/24 21:44 95 H 100 02/06/24 21:39 95 H 100 02/06/24 21:34 80 100 02/06/24 21:30 16 02/06/24 21:30 36.4 C L 16 02/06/24 21:29 89 100 02/06/24 21:24 89 96 02/06/24 21:19 92 H 97 02/06/24 21:15 91 H 129/70 02/06/24 21:14 85 96 02/06/24 21:09 93 H 97 02/06/24 21:04 88 97 02/06/24 21:01 90 132/73 02/06/24 21:00 16 02/06/24 21:00 36.4 C L 16 02/06/24 20:59 90 98 02/06/24 20:54 85 100 02/06/24 20:49 92 H 99 02/06/24 20:45 89 126/61 02/06/24 20:44 90 97 02/06/24 20:39 91 H 97 02/06/24 20:34 95 H 97 02/06/24 20:31 93 H 127/69 02/06/24 20:30 16 02/06/24 20:30 16 02/06/24 20:29 92 H 98 02/06/24 20:24 92 H 98 02/06/24 20:19 96 H 98 02/06/24 20:14 93 H 100 02/06/24 20:09 102 H 99 02/06/24 20:04 95 H 98 02/06/24 20:01 89 129/67 02/06/24 20:00 16 02/06/24 20:00 16 02/06/24 19:59 90 99 02/06/24 19:54 94 H 100 02/06/24 19:49 91 H 100 02/06/24 19:46 87 129/69 02/06/24 19:44 92 H 100 02/06/24 19:39 87 100 02/06/24 19:34 95 H 100 02/06/24 19:31 93 H 130/69 02/06/24 19:30 16 02/06/24 19:30 36.6 C 16 02/06/24 19:29 88 100 02/06/24 19:24 92 H 100 02/06/24 19:19 95 H 100 02/06/24 19:15 89 139/71 02/06/24 19:14 94 H 100 02/06/24 19:09 92 H 100 02/06/24 19:04 96 H 99 02/06/24 19:00 16 02/06/24 19:00 16 02/06/24 18:59 90 100 02/06/24 18:54 103 H 98 02/06/24 18:49 91 H 100 02/06/24 18:46 88 129/73 02/06/24 18:44 87 99 02/06/24 18:39 88 100 02/06/24 18:34 87 100 07/03/24 18:32 90 126/78 02/06/24 18:30 16 02/06/24 18:30 16 02/06/24 18:29 91 H 100 Coding Level of Care Code None Diagnoses Obesity affecting in third trimester O99.213 Gestational hypertension, third trimester O13.3 Trimester: third trimester Gestational diabetes mellitus (GDM) affecting , antepartum O24.419
[2024-02-07] MEDS: LIDOCAINE 2%/EPINEPHRINE 1:200,000 20 ML PF ONE (06:57)
[2024-02-07] MEDS: BUPIVACAINE 0.25% PF 30 ML VIAL ONE (06:57)
[2024-02-07] MEDS: fentaNYL citrate PF 100 MCG/2 ML VIAL ONE (06:58)
--- NOTE | 2024-02-07 07:19 | Labor Progress Brief Note ---
Date of Service February 07, 2024 Subjective Finally comfortable. epidural replaced Assessment & Plan (1) Obesity affecting in third trimester: (2) Gestational hypertension: Trimester: third trimester Qualified Code(s): O13.3 - Gestational [-induced] hypertension without significant proteinuria, third trimester (3) Gestational diabetes mellitus (GDM) affecting , antepartum: Plan Obvious active labornow. Fetus overall reassuring with good variability. right now it is feeling like a tight fit. Will be postioning to baby can come through the pelvis as long as fetus tolerates. Admission and Anticipated Discharge Date Admission Date: February 06, 2024 Physical Exam Physical Exam: cx--rim/0 toco--q2-3min, pit at 16 efm--130s with mod variability, small accels, decel with each contraction , difficult to tell if early or potentially late component Results & Data Vital Signs (Past 12 Hours) Vital Signs Temp Pulse Resp BP Pulse Ox 02/07/24 07:14 92 02/07/24 07:14 79 02/07/24 07:14 86 139/83 02/07/24 07:12 82 140/80 02/07/24 07:10 79 141/84 H 02/07/24 07:09 81 100 02/07/24 07:08 86 145/90 H 02/07/24 07:06 85 143/89 H 02/07/24 07:04 100 02/07/24 07:04 79 02/07/24 07:04 88 144/92 H 02/07/24 07:02 86 142/88 H 02/07/24 07:00 92 H 139/82 02/07/24 06:59 93 H 100 02/07/24 06:58 90 148/84 H 02/07/24 06:56 87 142/85 H 02/07/24 06:54 88 135/84 99 02/07/24 06:52 83 150/84 H 02/07/24 06:49 77 96 02/07/24 06:48 87 93 02/07/24 06:45 87 144/77 H 02/07/24 06:44 85 98 02/07/24 06:39 93 H 98 02/07/24 06:35 96 H 93 02/07/24 06:34 95 H 94 02/07/24 06:31 89 143/96 H 02/07/24 06:29 88 99 02/07/24 06:24 93 H 99 02/07/24 06:19 93 H 97 02/07/24 06:15 80 141/88 H 02/07/24 06:14 83 98 02/07/24 06:09 93 H 98 02/07/24 06:04 89 99 02/07/24 06:00 86 138/81 02/07/24 05:59 96 H 99 02/07/24 05:54 96 H 99 02/07/24 05:52 46 L 90 02/07/24 05:49 92 H 99 02/07/24 05:45 89 155/96 H 02/07/24 05:44 87 100 02/07/24 05:39 84 100 02/07/24 05:34 93 H 100 02/07/24 05:30 86 153/92 H 02/07/24 05:29 85 100 02/07/24 05:24 93 H 99 02/07/24 05:19 90 100 02/07/24 05:15 76 151/82 H 02/07/24 05:14 77 100 02/07/24 05:09 76 100 02/07/24 05:04 96 H 99 02/07/24 05:02 95 H 166/112 H 02/07/24 04:59 91 H 98 02/07/24 04:54 89 99 02/07/24 04:49 87 100 02/07/24 04:45 104 H 150/91 H 02/07/24 04:44 96 H 100 02/07/24 04:39 87 99 02/07/24 04:35 86 93 02/07/24 04:34 82 99 02/07/24 04:31 83 153/90 H 02/07/24 04:29 84 100 02/07/24 04:24 87 100 02/07/24 04:19 80 100 02/07/24 04:16 68 137/72 02/07/24 04:14 87 100 02/07/24 04:09 69 100 02/07/24 04:04 73 100 02/07/24 04:01 80 129/71 02/07/24 03:59 84 100 02/07/24 03:54 68 100 02/07/24 03:49 68 100 02/07/24 03:46 75 121/70 02/07/24 03:44 74 99 02/07/24 03:39 76 98 02/07/24 03:34 73 100 02/07/24 03:31 73 124/67 02/07/24 03:30 36.2 C L 02/07/24 03:30 36.2 C L 02/07/24 03:29 81 98 02/07/24 03:24 81 99 02/07/24 03:19 73 100 02/07/24 03:15 74 118/64 02/07/24 03:14 71 100 02/07/24 03:09 73 100 02/07/24 03:04 75 99 02/07/24 03:00 76 16 119/61 02/07/24 02:59 75 99 02/07/24 02:54 74 100 02/07/24 02:49 73 100 02/07/24 02:45 81 120/62 02/07/24 02:44 78 100 02/07/24 02:39 90 100 02/07/24 02:34 80 97 02/07/24 02:30 90 18 129/78 02/07/24 02:29 82 97 02/07/24 02:24 72 97 02/07/24 02:19 79 97 02/07/24 02:16 77 129/80 02/07/24 02:14 73 98 02/07/24 02:09 76 97 02/07/24 02:04 79 98 02/07/24 02:00 75 133/75 02/07/24 01:59 74 99 02/07/24 01:54 76 99 02/07/24 01:49 77 97 02/07/24 01:47 74 145/78 H 02/07/24 01:44 85 100 02/07/24 01:39 96 H 100 02/07/24 01:34 79 96 02/07/24 01:31 83 128/75 02/07/24 01:30 16 02/07/24 01:30 36.5 C 16 02/07/24 01:29 79 96 02/07/24 01:24 78 96 02/07/24 01:19 81 95 02/07/24 01:16 79 123/72 02/07/24 01:14 82 95 02/07/24 01:09 79 96 02/07/24 01:04 79 98 07/04/24 01:01 75 134/80 02/07/24 01:00 16 02/07/24 01:00 16 02/07/24 00:59 89 100 02/07/24 00:54 77 97 02/07/24 00:49 82 100 02/07/24 00:47 76 128/73 02/07/24 00:44 88 97 02/07/24 00:39 79 96 02/07/24 00:34 78 97 02/07/24 00:31 83 128/77 02/07/24 00:30 16 02/07/24 00:30 16 02/07/24 00:29 77 96 02/07/24 00:24 77 96 02/07/24 00:19 75 98 02/07/24 00:16 77 121/69 02/07/24 00:14 78 96 02/07/24 00:09 74 97 02/07/24 00:04 74 99 02/07/24 00:00 36.5 C 75 14 131/78 02/06/24 23:59 75 100 02/06/24 23:54 81 100 02/06/24 23:49 81 100 02/06/24 23:47 80 132/73 02/06/24 23:44 77 100 02/06/24 23:39 95 H 100 02/06/24 23:34 83 98 02/06/24 23:30 97 H 16 108/55 L 02/06/24 23:29 76 99 02/06/24 23:24 81 98 02/06/24 23:19 82 98 02/06/24 23:15 77 111/56 L 02/06/24 23:14 86 97 02/06/24 23:09 88 97 02/06/24 23:04 87 98 02/06/24 23:00 93 H 16 115/61 02/06/24 22:59 90 98 02/06/24 22:54 76 99 02/06/24 22:49 78 98 02/06/24 22:45 88 114/58 L 02/06/24 22:44 85 98 02/06/24 22:39 87 97 02/06/24 22:34 88 97 02/06/24 22:31 83 115/57 L 02/06/24 22:30 16 02/06/24 22:30 16 02/06/24 22:29 80 97 02/06/24 22:24 84 97 02/06/24 22:19 87 98 02/06/24 22:15 79 121/69 02/06/24 22:14 83 100 02/06/24 22:09 79 100 02/06/24 22:04 86 100 02/06/24 22:01 83 122/66 02/06/24 22:00 16 02/06/24 22:00 16 02/06/24 21:59 84 100 02/06/24 21:54 89 100 02/06/24 21:49 89 100 02/06/24 21:46 90 128/69 02/06/24 21:44 95 H 100 02/06/24 21:39 95 H 100 02/06/24 21:34 80 100 02/06/24 21:30 16 02/06/24 21:30 36.4 C L 16 02/06/24 21:29 89 100 02/06/24 21:24 89 96 02/06/24 21:19 92 H 97 02/06/24 21:15 91 H 129/70 02/06/24 21:14 85 96 02/06/24 21:09 93 H 97 02/06/24 21:04 88 97 02/06/24 21:01 90 132/73 02/06/24 21:00 16 02/06/24 21:00 36.4 C L 16 02/06/24 20:59 90 98 02/06/24 20:54 85 100 02/06/24 20:49 92 H 99 02/06/24 20:45 89 126/61 02/06/24 20:44 90 97 02/06/24 20:39 91 H 97 02/06/24 20:34 95 H 97 02/06/24 20:31 93 H 127/69 02/06/24 20:30 16 02/06/24 20:30 16 02/06/24 20:29 92 H 98 02/06/24 20:24 92 H 98 02/06/24 20:19 96 H 98 02/06/24 20:14 93 H 100 02/06/24 20:09 102 H 99 02/06/24 20:04 95 H 98 02/06/24 20:01 89 129/67 02/06/24 20:00 16 02/06/24 20:00 16 02/06/24 19:59 90 99 02/06/24 19:54 94 H 100 02/06/24 19:49 91 H 100 02/06/24 19:46 87 129/69 02/06/24 19:44 92 H 100 02/06/24 19:39 87 100 02/06/24 19:34 95 H 100 02/06/24 19:31 93 H 130/69 02/06/24 19:30 16 02/06/24 19:30 36.6 C 16 02/06/24 19:29 88 100 02/06/24 19:24 92 H 100 02/06/24 19:19 95 H 100 Coding Level of Care Code None Diagnoses Obesity affecting in third trimester O99.213 Gestational hypertension, third trimester O13.3 Trimester: third trimester Gestational diabetes mellitus (GDM) affecting , antepartum O24.419
--- NOTE | 2024-02-07 08:26 | Labor Progress Brief Note ---
Date of Service February 07, 2024 Subjective Notes pressure with contractions. Assessment & Plan (1) Obesity affecting in third trimester: (2) Gestational hypertension: Trimester: third trimester Qualified Code(s): O13.3 - Gestational [-induced] hypertension without significant proteinuria, third trimester (3) Gestational diabetes mellitus (GDM) affecting , antepartum: Plan Begin second stage 2. Fetus category two but reassuring. Will have to see how she pushes. Hope for vaginal delivery and baby lower but feels like a tight fit. last us showed efw 55%. Admission and Anticipated Discharge Date Admission Date: February 06, 2024 Physical Exam Physical Exam: cx--c/c/0 toco--q2-4min, pit 16 efm--150s with mod variability, variables noted. Results & Data Vital Signs (Past 12 Hours) Vital Signs Temp Pulse Resp BP Pulse Ox 02/07/24 08:22 85 170/74 H 02/07/24 08:21 90 100 02/07/24 08:17 82 169/79 H 02/07/24 08:16 85 100 02/07/24 08:12 80 168/81 H 02/07/24 08:11 82 100 02/07/24 08:07 83 170/85 H 02/07/24 08:06 80 100 02/07/24 08:02 80 164/79 H 02/07/24 08:01 74 100 02/07/24 07:57 76 163/73 H 02/07/24 07:56 73 100 02/07/24 07:52 75 162/76 H 02/07/24 07:51 74 100 02/07/24 07:47 74 166/74 H 02/07/24 07:46 74 100 02/07/24 07:42 76 162/82 H 02/07/24 07:41 80 100 02/07/24 07:36 80 163/71 H 100 02/07/24 07:34 36.7 C 83 20 154/81 H 94 02/07/24 07:32 78 152/75 H 02/07/24 07:31 82 100 02/07/24 07:30 82 152/79 H 02/07/24 07:28 82 153/78 H 02/07/24 07:26 90 151/76 H 100 02/07/24 07:23 81 82 L 02/07/24 07:21 82 100 02/07/24 07:18 98 H 142/76 H 02/07/24 07:16 83 143/79 H 02/07/24 07:14 92 02/07/24 07:14 79 02/07/24 07:14 86 139/83 02/07/24 07:12 82 140/80 02/07/24 07:10 79 141/84 H 02/07/24 07:09 81 100 02/07/24 07:08 86 145/90 H 02/07/24 07:06 85 143/89 H 02/07/24 07:04 100 02/07/24 07:04 79 02/07/24 07:04 88 144/92 H 02/07/24 07:02 86 142/88 H 02/07/24 07:00 92 H 139/82 02/07/24 06:59 93 H 100 02/07/24 06:58 90 148/84 H 02/07/24 06:56 87 142/85 H 02/07/24 06:54 88 135/84 99 02/07/24 06:52 83 150/84 H 02/07/24 06:49 77 96 02/07/24 06:48 87 93 02/07/24 06:45 87 144/77 H 02/07/24 06:44 85 98 02/07/24 06:39 93 H 98 02/07/24 06:35 96 H 93 02/07/24 06:34 95 H 94 02/07/24 06:31 89 143/96 H 02/07/24 06:29 88 99 02/07/24 06:24 93 H 99 02/07/24 06:19 93 H 97 02/07/24 06:15 80 141/88 H 02/07/24 06:14 83 98 02/07/24 06:09 93 H 98 02/07/24 06:04 89 99 02/07/24 06:00 86 138/81 02/07/24 05:59 96 H 99 02/07/24 05:54 96 H 99 02/07/24 05:52 46 L 90 02/07/24 05:49 92 H 99 02/07/24 05:45 89 155/96 H 02/07/24 05:44 87 100 02/07/24 05:39 84 100 02/07/24 05:34 93 H 100 02/07/24 05:30 86 153/92 H 02/07/24 05:29 85 100 02/07/24 05:24 93 H 99 02/07/24 05:19 90 100 02/07/24 05:15 76 151/82 H 02/07/24 05:14 77 100 02/07/24 05:09 76 100 02/07/24 05:04 96 H 99 02/07/24 05:02 95 H 166/112 H 02/07/24 04:59 91 H 98 02/07/24 04:54 89 99 02/07/24 04:49 87 100 02/07/24 04:45 104 H 150/91 H 02/07/24 04:44 96 H 100 02/07/24 04:39 87 99 02/07/24 04:35 86 93 02/07/24 04:34 82 99 02/07/24 04:31 83 153/90 H 02/07/24 04:29 84 100 02/07/24 04:24 87 100 02/07/24 04:19 80 100 02/07/24 04:16 68 137/72 02/07/24 04:14 87 100 02/07/24 04:09 69 100 02/07/24 04:04 73 100 02/07/24 04:01 80 129/71 02/07/24 03:59 84 100 02/07/24 03:54 68 100 02/07/24 03:49 68 100 02/07/24 03:46 75 121/70 02/07/24 03:44 74 99 02/07/24 03:39 76 98 02/07/24 03:34 73 100 02/07/24 03:31 73 124/67 02/07/24 03:30 36.2 C L 02/07/24 03:30 36.2 C L 02/07/24 03:29 81 98 02/07/24 03:24 81 99 02/07/24 03:19 73 100 02/07/24 03:15 74 118/64 02/07/24 03:14 71 100 02/07/24 03:09 73 100 02/07/24 03:04 75 99 02/07/24 03:00 76 16 119/61 02/07/24 02:59 75 99 02/07/24 02:54 74 100 02/07/24 02:49 73 100 02/07/24 02:45 81 120/62 02/07/24 02:44 78 100 02/07/24 02:39 90 100 02/07/24 02:34 80 97 02/07/24 02:30 90 18 129/78 02/07/24 02:29 82 97 02/07/24 02:24 72 97 02/07/24 02:19 79 97 02/07/24 02:16 77 129/80 02/07/24 02:14 73 98 02/07/24 02:09 76 97 02/07/24 02:04 79 98 02/07/24 02:00 75 133/75 02/07/24 01:59 74 99 02/07/24 01:54 76 99 02/07/24 01:49 77 97 02/07/24 01:47 74 145/78 H 02/07/24 01:44 85 100 02/07/24 01:39 96 H 100 02/07/24 01:34 79 96 02/07/24 01:31 83 128/75 02/07/24 01:30 16 02/07/24 01:30 36.5 C 16 02/07/24 01:29 79 96 02/07/24 01:24 78 96 02/07/24 01:19 81 95 02/07/24 01:16 79 123/72 02/07/24 01:14 82 95 02/07/24 01:09 79 96 02/07/24 01:04 79 98 02/07/24 01:01 75 134/80 02/07/24 01:00 16 02/07/24 01:00 16 02/07/24 00:59 89 100 02/07/24 00:54 77 97 02/07/24 00:49 82 100 02/07/24 00:47 76 128/73 02/07/24 00:44 88 97 02/07/24 00:39 79 96 02/07/24 00:34 78 97 02/07/24 00:31 83 128/77 02/07/24 00:30 16 02/07/24 00:30 16 02/07/24 00:29 77 96 02/07/24 00:24 77 96 02/07/24 00:19 75 98 07/04/24 00:16 77 121/69 02/07/24 00:14 78 96 02/07/24 00:09 74 97 02/07/24 00:04 74 99 02/07/24 00:00 36.5 C 75 14 131/78 02/06/24 23:59 75 100 02/06/24 23:54 81 100 02/06/24 23:49 81 100 02/06/24 23:47 80 132/73 02/06/24 23:44 77 100 02/06/24 23:39 95 H 100 02/06/24 23:34 83 98 02/06/24 23:30 97 H 16 108/55 L 02/06/24 23:29 76 99 02/06/24 23:24 81 98 02/06/24 23:19 82 98 02/06/24 23:15 77 111/56 L 02/06/24 23:14 86 97 02/06/24 23:09 88 97 02/06/24 23:04 87 98 02/06/24 23:00 93 H 16 115/61 02/06/24 22:59 90 98 02/06/24 22:54 76 99 02/06/24 22:49 78 98 02/06/24 22:45 88 114/58 L 02/06/24 22:44 85 98 02/06/24 22:39 87 97 02/06/24 22:34 88 97 02/06/24 22:31 83 115/57 L 02/06/24 22:30 16 02/06/24 22:30 16 02/06/24 22:29 80 97 02/06/24 22:24 84 97 02/06/24 22:19 87 98 02/06/24 22:15 79 121/69 02/06/24 22:14 83 100 02/06/24 22:09 79 100 02/06/24 22:04 86 100 02/06/24 22:01 83 122/66 02/06/24 22:00 16 02/06/24 22:00 16 02/06/24 21:59 84 100 02/06/24 21:54 89 100 02/06/24 21:49 89 100 02/06/24 21:46 90 128/69 02/06/24 21:44 95 H 100 02/06/24 21:39 95 H 100 02/06/24 21:34 80 100 02/06/24 21:30 16 02/06/24 21:30 36.4 C L 16 02/06/24 21:29 89 100 02/06/24 21:24 89 96 02/06/24 21:19 92 H 97 02/06/24 21:15 91 H 129/70 02/06/24 21:14 85 96 02/06/24 21:09 93 H 97 02/06/24 21:04 88 97 02/06/24 21:01 90 132/73 02/06/24 21:00 16 02/06/24 21:00 36.4 C L 16 02/06/24 20:59 90 98 02/06/24 20:54 85 100 02/06/24 20:49 92 H 99 02/06/24 20:45 89 126/61 02/06/24 20:44 90 97 02/06/24 20:39 91 H 97 02/06/24 20:34 95 H 97 02/06/24 20:31 93 H 127/69 02/06/24 20:30 16 02/06/24 20:30 16 02/06/24 20:29 92 H 98 02/06/24 20:24 92 H 98 Coding Level of Care Code None Diagnoses Obesity affecting in third trimester O99.213 Gestational hypertension, third trimester O13.3 Trimester: third trimester Gestational diabetes mellitus (GDM) affecting , antepartum O24.419
--- NOTE | 2024-02-07 09:17 | Labor Progress Brief Note ---
Date of Service February 07, 2024 Subjective Patient has been pushing - FHT 150s, mod maya, +accels - but then has had prolonged decelerations with pushing. station is 2+ with caput at 3+ with good pushing effort. Stopped pushing to allow recovery, repositioned and paused pitocin, gave IV bolus and O2. If good recovery may be able to continue pushing, however if FHT continue to show decelerations will need to proceed to . Assessment & Plan Admission and Anticipated Discharge Date Admission Date: February 06, 2024 Results & Data Vital Signs (Past 12 Hours) Vital Signs Temp Pulse Resp BP Pulse Ox 02/07/24 09:12 93 H 140/93 100 02/07/24 09:07 101 H 154/96 H 100 02/07/24 09:03 111 H 88 L 02/07/24 09:02 104 H 161/76 H 100 02/07/24 08:57 73 L 02/07/24 08:57 97 H 02/07/24 08:57 97 H 155/88 H 87 L 02/07/24 08:52 81 L 02/07/24 08:52 100 H 02/07/24 08:52 96 H 148/87 H 02/07/24 08:50 98 H 83 L 02/07/24 08:47 100 02/07/24 08:47 107 H 02/07/24 08:47 113 H 132/81 02/07/24 08:42 129/80 02/07/24 08:41 84 100 02/07/24 08:40 99 H 85 L 02/07/24 08:37 88 148/67 H 02/07/24 08:36 94 H 100 02/07/24 08:34 36.5 C 02/07/24 08:32 77 154/67 H 89 L 02/07/24 08:31 80 99 02/07/24 08:27 79 85 L 02/07/24 08:26 78 100 02/07/24 08:22 85 170/74 H 02/07/24 08:21 90 100 02/07/24 08:17 82 169/79 H 02/07/24 08:16 85 100 02/07/24 08:12 80 168/81 H 02/07/24 08:11 82 100 02/07/24 08:07 83 170/85 H 07/04/24 08:06 80 100 02/07/24 08:02 80 164/79 H 02/07/24 08:01 74 100 02/07/24 07:57 76 163/73 H 02/07/24 07:56 73 100 02/07/24 07:52 75 162/76 H 02/07/24 07:51 74 100 02/07/24 07:47 74 166/74 H 02/07/24 07:46 74 100 02/07/24 07:42 76 162/82 H 02/07/24 07:41 80 100 02/07/24 07:36 80 163/71 H 100 02/07/24 07:34 36.7 C 83 20 154/81 H 94 02/07/24 07:32 78 152/75 H 02/07/24 07:31 82 100 02/07/24 07:30 82 152/79 H 02/07/24 07:28 82 153/78 H 02/07/24 07:26 90 151/76 H 100 02/07/24 07:23 81 82 L 02/07/24 07:21 82 100 02/07/24 07:18 98 H 142/76 H 02/07/24 07:16 83 143/79 H 02/07/24 07:14 92 02/07/24 07:14 79 02/07/24 07:14 86 139/83 02/07/24 07:12 82 140/80 02/07/24 07:10 79 141/84 H 02/07/24 07:09 81 100 02/07/24 07:08 86 145/90 H 02/07/24 07:06 85 143/89 H 02/07/24 07:04 100 02/07/24 07:04 79 02/07/24 07:04 88 144/92 H 02/07/24 07:02 86 142/88 H 02/07/24 07:00 92 H 139/82 02/07/24 06:59 93 H 100 02/07/24 06:58 90 148/84 H 02/07/24 06:56 87 142/85 H 02/07/24 06:54 88 135/84 99 02/07/24 06:52 83 150/84 H 02/07/24 06:49 77 96 02/07/24 06:48 87 93 07/04/24 06:45 87 144/77 H 02/07/24 06:44 85 98 02/07/24 06:39 93 H 98 02/07/24 06:35 96 H 93 02/07/24 06:34 95 H 94 02/07/24 06:31 89 143/96 H 02/07/24 06:29 88 99 02/07/24 06:24 93 H 99 02/07/24 06:19 93 H 97 02/07/24 06:15 80 141/88 H 02/07/24 06:14 83 98 02/07/24 06:09 93 H 98 02/07/24 06:04 89 99 02/07/24 06:00 86 138/81 02/07/24 05:59 96 H 99 02/07/24 05:54 96 H 99 02/07/24 05:52 46 L 90 02/07/24 05:49 92 H 99 02/07/24 05:45 89 155/96 H 02/07/24 05:44 87 100 02/07/24 05:39 84 100 02/07/24 05:34 93 H 100 02/07/24 05:30 86 153/92 H 02/07/24 05:29 85 100 02/07/24 05:24 93 H 99 02/07/24 05:19 90 100 02/07/24 05:15 76 151/82 H 02/07/24 05:14 77 100 02/07/24 05:09 76 100 02/07/24 05:04 96 H 99 02/07/24 05:02 95 H 166/112 H 02/07/24 04:59 91 H 98 02/07/24 04:54 89 99 02/07/24 04:49 87 100 02/07/24 04:45 104 H 150/91 H 02/07/24 04:44 96 H 100 02/07/24 04:39 87 99 02/07/24 04:35 86 93 02/07/24 04:34 82 99 02/07/24 04:31 83 153/90 H 02/07/24 04:29 84 100 02/07/24 04:24 87 100 02/07/24 04:19 80 100 02/07/24 04:16 68 137/72 02/07/24 04:14 87 100 02/07/24 04:09 69 100 02/07/24 04:04 73 100 02/07/24 04:01 80 129/71 02/07/24 03:59 84 100 02/07/24 03:54 68 100 02/07/24 03:49 68 100 02/07/24 03:46 75 121/70 02/07/24 03:44 74 99 02/07/24 03:39 76 98 02/07/24 03:34 73 100 02/07/24 03:31 73 124/67 02/07/24 03:30 36.2 C L 02/07/24 03:30 36.2 C L 02/07/24 03:29 81 98 02/07/24 03:24 81 99 02/07/24 03:19 73 100 02/07/24 03:15 74 118/64 02/07/24 03:14 71 100 02/07/24 03:09 73 100 02/07/24 03:04 75 99 02/07/24 03:00 76 16 119/61 02/07/24 02:59 75 99 02/07/24 02:54 74 100 02/07/24 02:49 73 100 02/07/24 02:45 81 120/62 02/07/24 02:44 78 100 02/07/24 02:39 90 100 02/07/24 02:34 80 97 02/07/24 02:30 90 18 129/78 02/07/24 02:29 82 97 02/07/24 02:24 72 97 02/07/24 02:19 79 97 02/07/24 02:16 77 129/80 02/07/24 02:14 73 98 02/07/24 02:09 76 97 02/07/24 02:04 79 98 02/07/24 02:00 75 133/75 02/07/24 01:59 74 99 02/07/24 01:54 76 99 02/07/24 01:49 77 97 02/07/24 01:47 74 145/78 H 02/07/24 01:44 85 100 02/07/24 01:39 96 H 100 02/07/24 01:34 79 96 02/07/24 01:31 83 128/75 02/07/24 01:30 16 02/07/24 01:30 36.5 C 16 02/07/24 01:29 79 96 02/07/24 01:24 78 96 02/07/24 01:19 81 95 02/07/24 01:16 79 123/72 02/07/24 01:14 82 95 02/07/24 01:09 79 96 02/07/24 01:04 79 98 02/07/24 01:01 75 134/80 02/07/24 01:00 16 02/07/24 01:00 16 02/07/24 00:59 89 100 02/07/24 00:54 77 97 02/07/24 00:49 82 100 02/07/24 00:47 76 128/73 02/07/24 00:44 88 97 02/07/24 00:39 79 96 02/07/24 00:34 78 97 02/07/24 00:31 83 128/77 02/07/24 00:30 16 02/07/24 00:30 16 02/07/24 00:29 77 96 02/07/24 00:24 77 96 02/07/24 00:19 75 98 02/07/24 00:16 77 121/69 02/07/24 00:14 78 96 02/07/24 00:09 74 97 02/07/24 00:04 74 99 02/07/24 00:00 36.5 C 75 14 131/78 02/06/24 23:59 75 100 02/06/24 23:54 81 100 02/06/24 23:49 81 100 02/06/24 23:47 80 132/73 02/06/24 23:44 77 100 02/06/24 23:39 95 H 100 02/06/24 23:34 83 98 02/06/24 23:30 97 H 16 108/55 L 02/06/24 23:29 76 99 02/06/24 23:24 81 98 02/06/24 23:19 82 98 02/06/24 23:15 77 111/56 L 02/06/24 23:14 86 97 02/06/24 23:09 88 97 02/06/24 23:04 87 98 02/06/24 23:00 93 H 16 115/61 02/06/24 22:59 90 98 02/06/24 22:54 76 99 02/06/24 22:49 78 98 07/03/24 22:45 88 114/58 L 02/06/24 22:44 85 98 02/06/24 22:39 87 97 02/06/24 22:34 88 97 02/06/24 22:31 83 115/57 L 02/06/24 22:30 16 02/06/24 22:30 16 02/06/24 22:29 80 97 02/06/24 22:24 84 97 02/06/24 22:19 87 98 02/06/24 22:15 79 121/69 02/06/24 22:14 83 100 02/06/24 22:09 79 100 02/06/24 22:04 86 100 02/06/24 22:01 83 122/66 02/06/24 22:00 16 02/06/24 22:00 16 02/06/24 21:59 84 100 02/06/24 21:54 89 100 02/06/24 21:49 89 100 02/06/24 21:46 90 128/69 02/06/24 21:44 95 H 100 02/06/24 21:39 95 H 100 02/06/24 21:34 80 100 02/06/24 21:30 16 02/06/24 21:30 36.4 C L 16 02/06/24 21:29 89 100 02/06/24 21:24 89 96 02/06/24 21:19 92 H 97 02/06/24 21:15 91 H 129/70 02/06/24 21:14 85 96 Coding Level of Care Code None
--- NOTE | 2024-02-07 10:18 | Delivery Summary ---
Vaginal Delivery Summary Date of Service February 07, 2024 Vaginal Delivery Summary and 1st Degree LAC Vaginal Delivery Summary: Pre-delivery diagnoses: 28yo @ 37 2/7, preeclampsia, GDMA2, obesity, bipolar 2 Post-delivery diagnoses: same Procedure: spontaneous vaginal delivery Surgeon: Inna Villalobos DO Complications: none Findings: Viable male . Apgars: 8/9 . Weight pending, please see nursery records. Estimated QBL: 100ml Description of delivery: The patient progressed to complete with epidural anesthesia. She then began to push. She spontaneously vaginally delivered a viable from the cephalic presentation. The head delivered in BLOSSOM position. The anterior shoulder delivered, followed by the posterior shoulder, followed by the body. No nuchal. The baby was placed on mother's abdomen and a spontaneous cry was heard. Delayed cord clamping was employed, and the cord was doubly clamped and cut. A segment was retained for cord gases. Cord blood was obtained. The placenta was delivered spontaneously intact with a 3-vessel cord. The uterus and vagina were swept of clots and debris. IV pitocin was given. The uterus became firm. The cervix, vagina, and perineum were inspected and a first degree perineal laceration was noted and repaired in standard fashion with 3-0 Vicryl. Excellent hemostasis was observed. The mother and baby are recovering in stable and good condition in the room. Sponge, needle and instrument counts were correct x 2. Inna Villalobos DO [facility] Vaginal Delivery Charge Vaginal Delivery Codes: 64713 global code for the antepartum, delivery, and post- Delivery Type Details: and 1st Degree LAC
[2024-02-07] MEDS ORDERED: bisacodyL 10 MG SUPP PR PRN (10:19)
[2024-02-07] MEDS ORDERED: oxyCODONE/ACETAMINOPHEN 5mg/325mg TAB PO PRN (10:19)
[2024-02-07] MEDS ORDERED: HYDROCORTISONE ACETATE 25 MG SUPP PR PRN (10:19)
--- NOTE | 2024-02-07 11:16 | Anesthesia Procedure Note ---
Date of Service February 07, 2024 Anesthesia Post Epidural Note Vital Signs Vital Signs: Temp Pulse Resp BP Pulse Ox O2 Del Method 37.3 C 88 18 142/74 H 99 Room Air 02/07/24 10:02 02/07/24 11:00 02/07/24 10:02 02/07/24 11:00 02/07/24 10:27 02/06/24 15:28 Notes Mental Status: alert / awake / arousable Nausea / Vomiting: adequately controlled Pain: adequately controlled Airway Patency, RR, SpO2: stable & adequate BP & HR: stable & adequate Hydration State: stable & adequate Neuraxial Anesthesia: was administered and sensory block is resolving Anesthetic Complications: no major complications apparent Epidural: Removed without complications and With tip intact
[2024-02-07] MEDS: IBUPROFEN 600 MG TAB PO PRN (15:31)
[2024-02-07] MEDS: BENZOCAINE 20% SPRY 85 APPLN/85 GM CAN EXT ONE (15:50)
[2024-02-07] MEDS: fentANYL 2 MCG/ML BUPIVacaine 0.125%-NSS 100ML BAG ONE (17:20)
[2024-02-07] MEDS: SODIUM CHLORIDE 0.9% PF INJ 10 ML VIAL ONE (17:20)
[2024-02-07] MEDS: ePHEDrine sulfate 50 MG/ML AMP ONE (17:20)
[2024-02-07] MEDS: QUEtiapine FUMARATE 300 MG TABLET PO SCH (20:53)
[2024-02-07] MEDS: DOCUSATE SODIUM 100 MG CAP PO PRN (20:53)
[2024-02-07] MEDS: CALCIUM CARBONATE 500 MG CHEWABLE TAB PO PRN (21:28)
[2024-02-08] MEDS: PANTOprazole 40 MG TAB PO SCH (05:37)
[2024-02-08 07:32] LABS: Hematocrit (blood only) 31.7 % (37.0-47.0); Hemoglobin 10.5 g/dl (12.0-16.0); Mean Corpuscular Hemoglobin 28.5 pg (25.0-34.0); Mean Corpuscular Hgb Conc 33.1 g/dL (32.0-36.0); Mean Corpuscular Volume 86.1 fL (80.0-100.0); Platelet Count 272 K/uL (130-400); RDW Coefficient of Variation 15.7 % (11.5-14.5); RDW Standard Deviation 49.1 fL (36.4-46.3); Red Blood Count 3.68 M/uL (4.20-5.40); White Blood Count 14.59 K/ul (4.8-10.8)
--- NOTE | 2024-02-08 07:36 | Obstetrical Progress Note ---
Date of Service February 08, 2024 Assessment & Plan (1) Gestational hypertension: Trimester: third trimester Qualified Code(s): O13.3 - Gestational [-induced] hypertension without significant proteinuria, third trimester (2) Gestational diabetes mellitus (GDM) affecting , antepartum: Plan PPD#1 doing well. Casiano in place, as unable to urinate yesterday - will do bladder trial today. Ambulate, hydrate, routine care. Subjective Ambulation: ambulating normally Voiding: no voiding problems Diet Tolerance:: regular diet Lochia:: Moderate Review of Systems All systems reviewed & are unremarkable except as noted in HPI & below Physical Exam Constitutional WD/WN, vitals as above no acute distress Respiratory normal respiratory effort Cardiovascular Rate/Rhythm: regular rate and regular rhythm Gastrointestinal (Abdomen) Inspection/Auscultation: abdomen normal to inspection; abdomen not distended Percussion/Palpation: abdomen soft Genitourinary OB Exam Abdomen: + fundal height Fundus: + firm; not tender Results & Data Vital Signs (Past 12 Hours) Vital Signs Temp Pulse Resp BP Pulse Ox O2 Del Method 02/08/24 03:00 36.7 C 87 18 112/76 100 Room Air 02/07/24 23:10 36.8 C 100 H 16 112/70 100 Room Air
[2024-02-08 07:44] LABS: Alanine Aminotransferase 25 U/L (7-52); Albumin Level 2.8 gm/dl (3.4-5.0); Alkaline Phosphatase 101 U/L (34-104); Anion Gap 4 (3-11); Aspartate Aminotransferase 23 U/L (13-39); BUN Creatinine Ratio 15.6 (10-20); Bilirubin,Total 0.3 mg/dl (0.2-1.0); Blood Urea Nitrogen 7 mg/dl (6-23); Calcium 8.4 mg/dl (8.6-10.3); Carbon Dioxide 24 mmol/L (21-32); Chloride 108 mmol/L (98-107); Creatinine Clr Calc Pharmacy 282.6 ml/min; Est GFR (African American) > 150.0 ml/min; Est GFR (Non-African American) 136.4 ml/min; Globulin 2.8 gm/dl (2.5-4.0); Glucose 96 mg/dl (70-99(Fasting)); Sodium 136 mmol/L (136-145); Total Protein 5.6 gm/dl (6.0-8.3)
[2024-02-08] MEDS: FLUoxetine HCL 10 MG CAP PO SCH (07:57)
[2024-02-08] MEDS ORDERED: QUEtiapine FUMARATE 300 MG TABLET PO SCH (09:00)
[2024-02-08] MEDS ORDERED: PANTOprazole 40 MG TAB PO SCH (09:00)
--- NOTE | 2024-02-08 11:02 | History & Physical Report ---
Date of Service February 08, 2024 Assessment & Plan Admission and Anticipated Discharge Date Admission Date: February 06, 2024 History of Present Illness Primary Care Provider: Donna De MD _ y/o female GP currently at [facility] with an KENZIE _ as determined by _, who is here for IOL. complicated by: Had regular appointments with OB Contractions movement Fluid loss Vaginal bleeding External FHT and external uterine monitors used: Category _ tracing Labs: Allergies Allergy/AdvReac Type Severity Reaction Status Date / Time Penicillins Allergy Unknown FAMILY Verified 02/07/24 17:19 ALLERGY Home Medications Medication Instructions Recorded Confirmed Type pantoprazole 40 mg tablet,delayed 40 mg PO DAILY 04/11/23 02/06/24 History release PNV [id number] 1 mg PO DAILY 07/11/23 02/06/24 History [ Gummies(zinc chelate)] quetiapine [Seroquel] 300 mg PO DAILY 07/11/23 02/06/24 History acetone (urine) test (Ketone Urine #50 ea 09/21/23 02/06/24 Rx Test strips) blood sugar diagnostic (OneTouch #150 09/21/23 02/06/24 Rx Verio test strips) blood-glucose meter (OneTouch #1 ea 09/21/23 02/06/24 Rx Verio Reflect Meter) lancets 33 gauge (OneTouch Delica #150 ea 09/21/23 02/06/24 Rx Plus Lancet) pen needle, diabetic 32 gauge x #100 ea 10/04/23 02/06/24 Rx 5/32" (BD Ultra-Fine Aurora Pen Needle) insulin NPH isoph U-100 human 100 See Rx Instructions subcut QPM #15 10/05/23 02/06/24 Rx unit/mL (3 mL) subcutaneous pen mL (Novolin N FlexPen) fluoxetine 10 mg capsule (Prozac) 10 mg PO DAILY 01/03/24 02/06/24 History aspirin 81 mg capsule 81 mg PO DAILY 02/05/24 02/06/24 History Patient History Medical History (Updated 02/06/24 @ 14:48 by Andrzej Sheth MD) Insulin controlled gestational diabetes mellitus (GDM) during History of marijuana use Bipolar 2 disorder Injury of ankle, right Acute alcohol intoxication in patient with alcoholism with blood alcohol level 0.08 to 0.29 Intentional overdose of drug in tablet form History of chicken pox Varicella vaccination Surgical History S/P wisdom tooth extraction Family History Family/Other Breast cancer Grandfather (Maternal) Myocardial infarction Denies family history of Ovarian cancer Prostate cancer Colorectal cancer Social History Smoking Status: Never smoker Second Hand Exposure: No; Do You Dip or Chew Tobacco: No; Tobacco Cessation Education Requested by Patient: No Hx Alcohol Use: No Hx Substance Use: Yes Last Used Substance: Unknown Last Used Substance Other:: has not used in Preferred Language: Portuguese Communication Ability: Effective Electrical Continuity Tester Required: No Beliefs That Will Affect Care: None marital status: marital status details: Shakeel Valencia (27) [phone] Current Living Situation: Spouse Current Living Situation Comment: with in apartment current occupational status: unemployed Other Information That Helps Us Care for You: No Feels Safe at Home: Yes Safety Concerns: Feels Safe At This Time Assistive Devices: None Results & Data Vital Signs (Past 12 Hours) Vital Signs Temp Pulse Resp BP Pulse Ox O2 Del Method 02/08/24 03:00 36.7 C 87 18 112/76 100 Room Air 02/07/24 23:10 36.8 C 100 H 16 112/70 100 Room Air Code Status & VTE Plan VTE Prophylaxis Plan VTE Prophylaxis will be ordered: No
[2024-02-08] MEDS: ACETAMINOPHEN 325 MG TAB PO PRN (15:28)
[2024-02-08] MEDS ORDERED: Nursing to Pharmacy Communication SCH (16:00)
[2024-02-08] MEDS: PRENATAL VITAMIN 1 TAB PO SCH (16:09)
[2024-02-09] MEDS: PANTOprazole 40 MG TAB PO SCH (06:13)
--- NOTE | 2024-02-09 06:59 | Obstetrical Progress Note ---
Date of Service February 09, 2024 Assessment & Plan (1) Gestational hypertension: 28 yo GP1 PP2 from , doing well -Meeting all pp milestones -Rh+/rubella immune/ -f/u 6 weeks for appt and 1 wk bp check Trimester: third trimester Qualified Code(s): O13.3 - Gestational [-induced] hypertension without significant proteinuria, third trimester Subjective Ambulation: ambulating normally Voiding: no voiding problems Passing Gas:: Yes Diet Tolerance:: regular diet Lochia:: Small Feeding Type:: breast feeding Pain well managed with medication Review of Systems Denies fevers, chills, n/v, MCGHEE, CP, SOB Physical Exam Constitutional WD/WN, vitals as above no acute distress Respiratory normal respiratory effort, lungs clear to auscultation Cardiovascular RRR, no murmur, no edema Gastrointestinal (Abdomen) Percussion/Palpation: abdomen soft; abdomen nontender fundus firm at umbilicus and NT Musculoskeletal BLE symmetric, nonerythematous, nontender Results & Data Vital Signs (Past 12 Hours) Vital Signs Temp Pulse Resp BP Pulse Ox O2 Del Method 02/09/24 03:55 98.2 F 72 18 101/61 99 Room Air 02/08/24 21:10 98.2 F 87 20 120/77 98 Room Air
[2024-02-09] MEDS: BENZOCAINE 20% SPRY 85 APPLN/85 GM CAN EXT ONE (13:35)
== END 2024-02-09 15:30 | disposition home or self-care (01) | DRG 806 ==
LOC: 4S1 07:35 → 4E2 02-07 13:30
DX: O99.214 Obesity complicating childbirth; O24.424 Gestational diabetes mellitus in childbirth, insulin controlled; O99.344 Other mental disorders complicating childbirth; Z79.82 Long term (current) use of aspirin; E66.9 Obesity, unspecified; O70.0 First degree perineal laceration during delivery; F31.81 Bipolar II disorder; Z37.0 Single live birth; Z88.0 Allergy status to penicillin; O13.4 Gestational [pregnancy-induced] hypertension without significant proteinuria, complicating childbirth; Z3A.37 37 weeks gestation of pregnancy